=== PATIENT | female | born 1935 | race Caucasian/White ===

== ENCOUNTER 2016-10-16 18:04 | Observation (INO) | payer MEDICARE, BC ==
[~2016-10-16] VITALS: Ht 165.1 cm; Wt 65.0 kg
[~2016-10-16 18:04] MED LIST: AMLO5TAB22 PO; APIX5 PO; ASPI81TA82 PO; BENA10 PO; COQ1200C3 PO; DIAZ5TAB PO; DIGO0.123 PO; DOCU1CAP39 PO; HYDR-3580 PO; JANU100T PO; MACR100C PO; MAGN400 PO; METF-324 PO; METO25 PO; NITR.2T TD; NITR.4 SL; NITR0.4S SL; PLAV75TA PO; POLY119S PO; PROT40TA PO; ROSU40 PO; TRIM100T8 PO; ZOFR8TAB PO; ZOLP10TA3 PO
[2016-10-16 18:06] VITALS: BP 199/85; PULSE 88; RESP 18; TEMP 99.4; O2SAT 97
--- NOTE | 2016-10-16 19:37 | PD ---
Physical Exam Time Seen by Provider: 19:35 Narrative 81 y/o female here for evaluation of dizziness, intermittent htn for one week. Room spinning sensation, worse with movement. +Nausea. Vital signs reviewed. Seen at triage desk. Awaiting bed placement. Data Data Last Documented VS Vital Signs Date Time Temp Pulse Resp B/P Pulse Ox O2 Delivery O2 Flow Rate FiO2 10/16/16 18:06 99.4 88 18 199/85 97 Room Air [facility] Medical Record Reviewed: Yes Supervised Visit with FAM: No Familia Quiles Oct 16, 2016 19:37
[2016-10-16 21:08] LABS: AUTOMATED NEUTROPHIL # 7.7 TH/MM3 (1.8-7.7); BASOPHIL # 0.1 TH/MM3 (0-0.2); BASOPHIL % 0.4 % (0.0-2.0); EOSINOPHIL # 0.2 TH/MM3 (0-0.4); HEMATOCRIT 40.9 % (35.0-46.0); HEMO FLAGS DIFF FINAL; LYMPH % 26.9 % (9.0-44.0); LYMPHOCYTE # 3.2 TH/MM3 (1.0-4.8); MEAN CELL VOLUME 84.5 FL (80.0-100.0); MEAN CORPUSCULAR HEMOGLOBIN 27.9 PG (27.0-34.0); MONO % 6.9 % (0.0-8.0); NEUT % 63.8 % (16.0-70.0); PLATELET COUNT 323 TH/MM3 (150-450); RED BLOOD COUNT 4.84 MIL/MM3 (4.00-5.30); RED CELL DISTRIBUTION WIDTH 16.1 % (11.6-17.2)
[2016-10-16 21:09] LABS: BACTERIA, URINE MANY /hpf; BLOOD, URINE NEG (NEG); COMMENT (UR) CULTURE INDICATED; CULTURE IF INDICATED CULTURE INDICATED; GLUCOSE,URINE NEG (NEG); KETONE, URINE NEG (NEG); NITRITE,URINE NEG (NEG); URINE COLOR LIGHT-YELLOW (YELLW/STRAW)
[2016-10-16 21:31] LABS: ANION GAP 8 MEQ/L (5-15); AST (GOT) 16 U/L (15-37); BICARBONATE 24.7 MEQ/L (21.0-32.0); BLOOD UREA NITROGEN 23 MG/DL (7-18); CHLORIDE 102 MEQ/L (98-107); GLOMERULAR FILTRATION RATE 58 ML/MIN (>89); MAGNESIUM 1.7 MG/DL (1.5-2.5); POTASSIUM 4.3 MEQ/L (3.5-5.1); SODIUM (NA) 135 MEQ/L (136-145)
[2016-10-16 21:32] LABS: ALT (GPT) 23 U/L (10-53)
[2016-10-16 21:36] LABS: ALKALINE PHOSPHATASE 75 U/L (45-117); TOTAL BILIRUBIN ADULT 0.4 MG/DL (0.2-1.0)
[2016-10-16 21:44] LABS: CREATINE KINASE 56 U/L (26-192)
[2016-10-16] MEDS ORDERED: SITA1TAB2 PO (21:53)
[2016-10-16] MEDS ORDERED: HYDR-3516 PO (21:53)
[2016-10-16] MEDS ORDERED: DIGO1TAB61 PO (21:53)
[2016-10-16] MEDS ORDERED: APIX5TAB PO (21:53)
[2016-10-16] MEDS ORDERED: DIAZ5TAB PO (21:53)
[2016-10-16] MEDS ORDERED: METO-488 PO (21:53)
[2016-10-16 22:03] VITALS: BP_SYST 150; BP_SYST 161; BP_SYST 185; BP_DIAS 91; BP_DIAS 95; RESP 18
--- NOTE | 2016-10-16 22:03 | PD ---
HPI Chief Complaint: Syncope/Near-Syncope Time Seen by Provider: 21:57 Travel History International Travel<30 days: No Contact w/Intl Traveler<30days: No Traveled to known affect area: No History of Present Illness HPI Patient is an 81-year-old female that presents to the emergency department evaluation after a syncopal episode earlier this afternoon. 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 Patient states that she has felt weak since then, she had mild shortness of breath which she attributes to pain that she has in her right shoulder, she does report a mild left chest pain. She reports feeling nauseated and having elevated blood pressure readings today. She denies any abdominal pain, dysuria, chest pain prior to her episode. She was seen by her primary care provider for routine checkup this morning. She was then advised this afternoon to come to the emergency department if she did not feel any better after one hour. Patient reports a past medical history significant for hypertension, atrial fibrillation, she is currently on Eliquis. [facility] Past Medical History Hx Anticoagulant Therapy: Yes (eliquis) Arthritis: Yes Asthma: No Atrial Fibrillation: Yes Cancer: No Cardiac Catheterization: Yes (3 stents (last 03/20/15)) Cardiovascular Problems: Yes (CATH ON 03/23-BY BYPASS 2014-STENT) High Cholesterol: Yes Chemotherapy: No Chest Pain: Yes Congestive Heart Failure: No COPD: No Cerebrovascular Accident: No Diabetes: Yes Patient Takes Glucophage: No (JANUVIA 100MG PO DAILY ) Diminished Hearing: No GERD: Yes Genitourinary: Yes Headaches: No Hiatal Hernia: No Hypertension: Yes Immune Disorder: No Implanted Vascular Access Dvce: Yes Insomnia: Yes Kidney Stones: No Neurologic: Yes Reproductive: No Respiratory: No Immunizations Current: Yes Migraines: No Myocardial Infarction: Yes (2003) Radiation Therapy: No Renal Failure: No Seizures: No Sleep Apnea: No Thyroid Disease: No Ulcer: No Menopausal: Yes : 2 Para: 2 Miscarriage: 0 : 0 Past Surgical History AICD: No Appendectomy: Yes Arteriovenous Shunt: No Cholecystectomy: Yes Coronary Artery Bypass Graft: Yes (2014) Coronary Stent: Yes Ear Surgery: No Endocrine Surgery: No Eye Surgery: Yes (cataract surgery 2013) Genitourinary Surgery: No Hysterectomy: Yes Insulin Pump: No Joint Replacement: Yes (bilat knees) Neurologic Surgery: No Oral Surgery: No Pacemaker: No Thoracic Surgery: No Tonsillectomy: Yes Other Surgery: Yes Family History Family Myocardial Infarction: Yes Social History Alcohol Use: No Tobacco Use: No Substance Use: No Allergies-Medications (Allergen,Severity, Reaction): Coded Allergies: Macrobid (Verified Allergy, Severe, 03/28/15) Sulfa (Verified Allergy, Severe, 03/28/15) Penicillin (Verified Allergy, Unknown, 03/28/15) Reported Meds & Prescriptions Reported Meds & Active Scripts Active Reported Metoprolol Succinate/HCTZ 50-12.5 ER 1 Tab Tab 1 Tab PO DAILY Eliquis (Apixaban) 5 Mg Tab 5 Mg PO BID Diazepam 5 Mg Tab 5 Mg PO TID PRN Hydrocodone-Acetaminophen 5-325 mg Tab 1 Tab PO BID PRN Januvia (Sitagliptin Phosphate) 100 Mg Tab 100 Mg PO DAILY Digitek (Digoxin) 0.25 Mg Tab 0.25 Mg PO DAILY Review of Systems Except as stated in HPI: all other systems reviewed are Neg General / Constitutional: No: Fever, Chills Eyes: No: Visual changes HENT: No: Headaches, Lightheadedness Cardiovascular: Positive: Chest Pain or Discomfort Respiratory: Positive: Shortness of Breath Gastrointestinal: Positive: Nausea Neurologic: Positive: Dizziness, Syncope, No: Weakness, Focal Abnormalities Physical Exam Narrative GENERAL: Well-developed, well-nourished, alert elderly female. Resting comfortably in no acute distress. SKIN: Warm and dry. HEAD: Atraumatic. Normocephalic. EYES: Pupils equal and round. No scleral icterus. No injection or drainage. ENT: No nasal bleeding or discharge. Mucous membranes pink and moist. NECK: Trachea midline. No JVD. CARDIOVASCULAR: Tachycardic, irregularly regular. RESPIRATORY: No accessory muscle use. Clear to auscultation. Breath sounds equal bilaterally. GASTROINTESTINAL: Abdomen soft, non-tender, nondistended. Hepatic and splenic margins not palpable. MUSCULOSKELETAL: Extremities without clubbing, cyanosis, or edema. No obvious deformities. NEUROLOGICAL: Awake and alert. No obvious cranial nerve deficits. Motor grossly within normal limits. Five out of 5 muscle strength in the arms and legs. Normal speech. PSYCHIATRIC: Appropriate mood and affect; insight and judgment normal. Data Data Last Documented VS Vital Signs Date Time Temp Pulse Resp B/P Pulse Ox O2 Delivery O2 Flow Rate FiO2 10/16/16 22:03 104 18 150/95 101 18 185/91 99 18 161/95 10/16/16 18:06 99.4 97 Room Air Orders Electrocardiogram (10/16/16 19:38) Complete Blood Count With Diff (10/16/16 19:38) Comprehensive Metabolic Panel (10/16/16 19:38) Magnesium (Mg) (10/16/16 19:38) Ckmb (Isoenzyme) Profile (10/16/16 19:38) Troponin I (10/16/16 19:38) Urinalysis - C+S If Indicated (10/16/16 20:17) Urine Culture (10/16/16 20:10) Chest, Single Ap (10/16/16 ) Ct Brain W/O Iv Contrast(Rout) (10/16/16 ) Admit Order (Ed Use Only) (10/16/16 23:51) Labs Laboratory Tests Test 10/16/16 20:10 White Blood Count 12.0 TH/MM3 Red Blood Count 4.84 MIL/MM3 Hemoglobin 13.5 GM/DL Hematocrit 40.9 % Mean Corpuscular Volume 84.5 FL Mean Corpuscular Hemoglobin 27.9 PG Mean Corpuscular Hemoglobin 33.0 % Concent Red Cell Distribution Width 16.1 % Platelet Count 323 TH/MM3 Mean Platelet Volume 7.7 FL Neutrophils (%) (Auto) 63.8 % Lymphocytes (%) (Auto) 26.9 % Monocytes (%) (Auto) 6.9 % Eosinophils (%) (Auto) 2.0 % Basophils (%) (Auto) 0.4 % Neutrophils # (Auto) 7.7 TH/MM3 Lymphocytes # (Auto) 3.2 TH/MM3 Monocytes # (Auto) 0.8 TH/MM3 Eosinophils # (Auto) 0.2 TH/MM3 Basophils # (Auto) 0.1 TH/MM3 CBC Comment DIFF FINAL Differential Comment Urine Color LIGHT-YELLOW Urine Turbidity CLEAR Urine pH 6.0 Urine Specific [place] 1.007 Urine Protein TRACE mg/dL Urine Glucose (UA) NEG mg/dL Urine Ketones NEG mg/dL Urine Occult Blood NEG Urine Nitrite NEG Urine Bilirubin NEG Urine Urobilinogen LESS THAN 2.0 MG/DL Urine Leukocyte Esterase NEG Urine RBC LESS THAN 1 /hpf Urine WBC 3 /hpf Urine Amorphous Sediment RARE Urine Bacteria MANY /hpf Microscopic Urinalysis Comment CULTURE INDICATED Sodium Level 135 MEQ/L Potassium Level 4.3 MEQ/L Chloride Level 102 MEQ/L Carbon Dioxide Level 24.7 MEQ/L Anion Gap 8 MEQ/L Blood Urea Nitrogen 23 MG/DL Creatinine 0.93 MG/DL Estimat Glomerular Filtration 58 ML/MIN Rate Random Glucose 158 MG/DL Calcium Level 10.0 MG/DL Magnesium Level 1.7 MG/DL Total Bilirubin 0.4 MG/DL Aspartate Amino Transf 16 U/L (AST/SGOT) Alanine Aminotransferase 23 U/L (ALT/SGPT) Alkaline Phosphatase 75 U/L Total Creatine Kinase 56 U/L Troponin I LESS THAN 0.02 NG/ML Total Protein 7.9 GM/DL Albumin 3.6 GM/DL MDM Medical Decision Making Medical Screen Exam Complete: Yes Emergency Medical Condition: Yes Interpretation(s) Last Impressions Chest X-Ray 10/16/16 0000 Signed Impressions: Service Date/Time: October 21:55 - CONCLUSION: No acute cardiopulmonary disease. Vivi Israel MD Laboratory Tests Test 10/16/16 20:10 White Blood Count 12.0 TH/MM3 Red Blood Count 4.84 MIL/MM3 Hemoglobin 13.5 GM/DL Hematocrit 40.9 % Mean Corpuscular Volume 84.5 FL Mean Corpuscular Hemoglobin 27.9 PG Mean Corpuscular Hemoglobin 33.0 % Concent Red Cell Distribution Width 16.1 % Platelet Count 323 TH/MM3 Mean Platelet Volume 7.7 FL Neutrophils (%) (Auto) 63.8 % Lymphocytes (%) (Auto) 26.9 % Monocytes (%) (Auto) 6.9 % Eosinophils (%) (Auto) 2.0 % Basophils (%) (Auto) 0.4 % Neutrophils # (Auto) 7.7 TH/MM3 Lymphocytes # (Auto) 3.2 TH/MM3 Monocytes # (Auto) 0.8 TH/MM3 Eosinophils # (Auto) 0.2 TH/MM3 Basophils # (Auto) 0.1 TH/MM3 CBC Comment DIFF FINAL Differential Comment Urine Color LIGHT-YELLOW Urine Turbidity CLEAR Urine pH 6.0 Urine Specific [place] 1.007 Urine Protein TRACE mg/dL Urine Glucose (UA) NEG mg/dL Urine Ketones NEG mg/dL Urine Occult Blood NEG Urine Nitrite NEG Urine Bilirubin NEG Urine Urobilinogen LESS THAN 2.0 MG/DL Urine Leukocyte Esterase NEG Urine RBC LESS THAN 1 /hpf Urine WBC 3 /hpf Urine Amorphous Sediment RARE Urine Bacteria MANY /hpf Microscopic Urinalysis Comment CULTURE INDICATED Sodium Level 135 MEQ/L Potassium Level 4.3 MEQ/L Chloride Level 102 MEQ/L Carbon Dioxide Level 24.7 MEQ/L Anion Gap 8 MEQ/L Blood Urea Nitrogen 23 MG/DL Creatinine 0.93 MG/DL Estimat Glomerular Filtration 58 ML/MIN Rate Random Glucose 158 MG/DL Calcium Level 10.0 MG/DL Magnesium Level 1.7 MG/DL Total Bilirubin 0.4 MG/DL Aspartate Amino Transf 16 U/L (AST/SGOT) Alanine Aminotransferase 23 U/L (ALT/SGPT) Alkaline Phosphatase 75 U/L Total Creatine Kinase 56 U/L Troponin I LESS THAN 0.02 NG/ML Total Protein 7.9 GM/DL Albumin 3.6 GM/DL Vital Signs Date Time Temp Pulse Resp B/P Pulse Ox O2 Delivery O2 Flow Rate FiO2 10/16/16 21:45 104 18 10/16/16 18:06 99.4 88 18 199/85 97 Room Air Differential Diagnosis Arrhythmia versus orthostatic hypotension versus vertigo versus other Narrative Course Patient 81-year-old female presented to the emergency for evaluation of a syncopal episode home this afternoon. Patient has mild chest pain, she is attributing that to her right shoulder injury however she feels nauseated and was short of breath. Additionally she felt weak after the episode occurred. She was advised by her primary to come to the emergency department. Labs and imaging ordered and pending. Initial EKG shows atrial flutter/tachycardia with a rate of 92. Chest x-ray shows no acute disease. UA with reflex culture pending, possible contaminant. Pt has no urinary symptoms. CBC with WBC 12, no left shift. CMP with no acute issues identified. Cardiac enzymes neg X 1 set. Ortho VS neg. Care of pt transferred to my attending at the end of my shift. She will determine pt's disposition. CT of the brain pending, pt to be admitted. Yessi Henson [facility] Oct 16, 2016 22:02
--- NOTE | 2016-10-16 22:13 | RADRPT ---
EXAM DATE/TIME: 10/16/2016 21:55 [facility] COMPARISON: CHEST SINGLE AP, March 14, 2015, 4:06. INDICATIONS : Syncope and dizziness tonight. MEDICAL HISTORY : Hypertension. Myocardial infarction. Diabetes mellitus type II. Afib. GERD. SURGICAL HISTORY : CABG. Cholecystectomy. Appendectomy. Cardiac cath. ENCOUNTER: Initial ACUITY: 1 day PAIN SCORE: 0/10 LOCATION: Bilateral chest FINDINGS: The lungs are clear without infiltrate, nodule, or mass. There is no appreciable pleural effusion fo r technique. Slight cardiomegaly has not changed.. There is evidence for prior median sternotomy. CONCLUSION: No acute cardiopulmonary disease. Vivi Israel MD on October 16, 2016 at 22:11 Board Certified Radiologist. This report was verified electronically.
--- NOTE | 2016-10-16 22:53 | RADRPT ---
EXAM DATE/TIME: 10/16/2016 22:36 [facility] COMPARISON: No previous studies available for comparison. INDICATIONS : Syncopal episode with dizziness. RADIATION DOSE: 56.77 CTDIvol (mGy) MEDICAL HISTORY : Hypertension. Diabetes mellitus type 2. SURGICAL HISTORY : None. ENCOUNTER: Initial ACUITY: 1 day PAIN SCALE: 0/10 LOCATION: cranial TECHNIQUE: Multiple contiguous axial images were obtained of the head. Using automated exposure control and adj ustment of the mA and/or kV according to patient size, radiation dose was kept as low as reasonably a chievable to obtain optimal diagnostic quality images. DICOM format image data is available electro nically for review and comparison. FINDINGS: There is no evidence for intracranial hemorrhage, mass effect, mass lesions, or edema. The visualize d bony structures appear intact. Slight degree of brain atrophy is seen. Slight periventricular whit e matter changes are seen nonspecific mostly consistent with chronic small vessel ischemic changes. There are no signs of acute infarction for technique. CONCLUSION: Slight atrophic and small vessel ischemic changes without any evidence for acute hemorrhage or mass effect. Vivi Israel MD on October 16, 2016 at 22:51 Board Certified Radiologist. This report was verified electronically.
[2016-10-17] VITALS (7 sets, daily range): BP systolic 115–168; BP diastolic 56–79; PULSE 76–95; RESP 16–18; TEMP 97.8–98.2; O2SAT 95–97
[2016-10-17] MEDS ORDERED: MAGNESIUM HYDROXIDE SUSP 30 ML CUP PO PRN
[2016-10-17] MEDS ORDERED: LACTULOSE SYRUP 20 GM/30 ML CUP PO PRN
[2016-10-17] MEDS ORDERED: HEPARIN SODIUM - SQ 10,000 UNITS/ML VIAL SQ SCH
[2016-10-17] MEDS ORDERED: BISACODYL 10 MG SUPP RECTAL PRN
[2016-10-17] MEDS ORDERED: SENNOSIDES 8.6 MG TAB PO PRN
[2016-10-17] MEDS ORDERED: ONDANSETRON HCL 4 MG/2 ML VIAL IVP PRN
[2016-10-17] MEDS ORDERED: SODIUM CHLORIDE 0.9% FLUSH 10 ML FLUSH IV FLUSH PRN
[2016-10-17] MEDS ORDERED: NALOXONE HCL 0.4 MG/ML AMP IV PRN
[2016-10-17] MEDS: SODIUM CHLOR 0.9% 1000 ML INJ 1,000 ML IV SCH ×2 (00:26→09:51)
--- NOTE | 2016-10-17 03:41 | PD ---
Data Data Last Documented VS Vital Signs Date Time Temp Pulse Resp B/P Pulse Ox O2 Delivery O2 Flow Rate FiO2 10/16/16 22:03 104 18 150/95 101 18 185/91 99 18 161/95 10/16/16 18:06 99.4 97 Room Air Orders Electrocardiogram (10/16/16 19:38) Complete Blood Count With Diff (10/16/16 19:38) Comprehensive Metabolic Panel (10/16/16 19:38) Magnesium (Mg) (10/16/16 19:38) Ckmb (Isoenzyme) Profile (10/16/16 19:38) Troponin I (10/16/16 19:38) Urinalysis - C+S If Indicated (10/16/16 20:17) Urine Culture (10/16/16 20:10) Chest, Single Ap (10/16/16 ) Ct Brain W/O Iv Contrast(Rout) (10/16/16 ) Admit Order (Ed Use Only) (10/16/16 23:51) Labs Laboratory Tests Test 10/16/16 20:10 White Blood Count 12.0 TH/MM3 Red Blood Count 4.84 MIL/MM3 Hemoglobin 13.5 GM/DL Hematocrit 40.9 % Mean Corpuscular Volume 84.5 FL Mean Corpuscular Hemoglobin 27.9 PG Mean Corpuscular Hemoglobin 33.0 % Concent Red Cell Distribution Width 16.1 % Platelet Count 323 TH/MM3 Mean Platelet Volume 7.7 FL Neutrophils (%) (Auto) 63.8 % Lymphocytes (%) (Auto) 26.9 % Monocytes (%) (Auto) 6.9 % Eosinophils (%) (Auto) 2.0 % Basophils (%) (Auto) 0.4 % Neutrophils # (Auto) 7.7 TH/MM3 Lymphocytes # (Auto) 3.2 TH/MM3 Monocytes # (Auto) 0.8 TH/MM3 Eosinophils # (Auto) 0.2 TH/MM3 Basophils # (Auto) 0.1 TH/MM3 CBC Comment DIFF FINAL Differential Comment Urine Color LIGHT-YELLOW Urine Turbidity CLEAR Urine pH 6.0 Urine Specific [place] 1.007 Urine Protein TRACE mg/dL Urine Glucose (UA) NEG mg/dL Urine Ketones NEG mg/dL Urine Occult Blood NEG Urine Nitrite NEG Urine Bilirubin NEG Urine Urobilinogen LESS THAN 2.0 MG/DL Urine Leukocyte Esterase NEG Urine RBC LESS THAN 1 /hpf Urine WBC 3 /hpf Urine Amorphous Sediment RARE Urine Bacteria MANY /hpf Microscopic Urinalysis Comment CULTURE INDICATED Sodium Level 135 MEQ/L Potassium Level 4.3 MEQ/L Chloride Level 102 MEQ/L Carbon Dioxide Level 24.7 MEQ/L Anion Gap 8 MEQ/L Blood Urea Nitrogen 23 MG/DL Creatinine 0.93 MG/DL Estimat Glomerular Filtration 58 ML/MIN Rate Random Glucose 158 MG/DL Calcium Level 10.0 MG/DL Magnesium Level 1.7 MG/DL Total Bilirubin 0.4 MG/DL Aspartate Amino Transf 16 U/L (AST/SGOT) Alanine Aminotransferase 23 U/L (ALT/SGPT) Alkaline Phosphatase 75 U/L Total Creatine Kinase 56 U/L Troponin I LESS THAN 0.02 NG/ML Total Protein 7.9 GM/DL Albumin 3.6 GM/DL MDM Supervised Visit with FAM: Yes Narrative Course The history, exam, and medical decision-making in the associated midlevel provider note were completed with my assistance. I reviewed and agree with the findings presented. I attest that I had a [id number] encounter with the patient on the same day, and personally performed and documented my assessment and findings in the medical record. *My assessment and Findings: This is an 81-year-old female with a history of coronary artery disease and atrial fibrillation who presents to the emergency department with syncope. Labs are obtained which are reassuring and CT imaging of the head was unremarkable. Patient continues to feel somewhat lightheaded and dizzy. I think it's reasonable to observe her given her comorbidities and her age. Marivel Middleton MD Oct 17, 2016 03:41
[2016-10-17] MEDS ORDERED: HCTZ PO SCH (09:00)
[2016-10-17] MEDS ORDERED: METOPROLOL SUCCINATE 50 MG EXTENDED RELEASE TAB PO SCH (09:00)
[2016-10-17] MEDS ORDERED: HYDROCHLOROTHIAZIDE 12.5 MG CAP PO SCH (09:00)
[2016-10-17] MEDS ORDERED: DOCUSATE SODIUM 50 MG/SENNA 8.6 MG TAB PO SCH (09:00)
[2016-10-17] MEDS ORDERED: SODIUM CHLORIDE 0.9% FLUSH 10 ML FLUSH IV FLUSH SCH (09:00)
[2016-10-17] MEDS ORDERED: APIXABAN 5 MG TABLET PO SCH (09:00)
[2016-10-17] MEDS ORDERED: METOPROLOL SUCCINATE PO SCH (09:00)
[2016-10-17] MEDS ORDERED: DIGOXIN 0.25 MG TAB PO SCH (09:00)
[2016-10-17 11:52] LABS: AUTOMATED NEUTROPHIL # 4.2 TH/MM3 (1.8-7.7); BASOPHIL % 0.2 % (0.0-2.0); EOSINOPHIL # 0.3 TH/MM3 (0-0.4); EOSINOPHIL % 3.7 % (0.0-4.0); HEMATOCRIT 37.9 % (35.0-46.0); HEMO FLAGS DIFF FINAL; LYMPH % 29.1 % (9.0-44.0); LYMPHOCYTE # 2.1 TH/MM3 (1.0-4.8); MEAN CELL VOLUME 85.4 FL (80.0-100.0); MEAN CORPUSCULAR HEMOGLOBIN 27.8 PG (27.0-34.0); MEAN CORPUSCULAR HGB CONC 32.5 % (32.0-36.0); MONO % 8.3 % (0.0-8.0); NEUT % 58.7 % (16.0-70.0); PLATELET COUNT 272 TH/MM3 (150-450); RED BLOOD COUNT 4.44 MIL/MM3 (4.00-5.30); RED CELL DISTRIBUTION WIDTH 16.1 % (11.6-17.2); WHITE BLOOD COUNT 7.2 TH/MM3 (4.0-11.0)
[2016-10-17 12:32] LABS: BICARBONATE 30.7 MEQ/L (21.0-32.0); POTASSIUM 3.9 MEQ/L (3.5-5.1)
--- NOTE | 2016-10-17 12:35 | HHI.HP ---
HPI Service [facility] Primary Care Physician Non-Staff Admission Diagnosis syncope Diagnoses: Travel History International Travel<30 Days: No Contact w/Intl Traveler <30 Da: No Traveled to Known Affected Are: No History of Present Illness This is a very pleasant 81-year-old female who came into the emergency department at [facility] arriving at 7:35 PM last night with dizziness that has been going on and off for a week. Yesterday she had a feeling of spinning of the room where she was. This occurred after she got up and was walking in her living room. She felt spinning and then she passed out for a few seconds, no injuries, no chest pain, no trouble breathing however she did have some headache, when she came to the emergency department her systolic blood pressure was over 200. She was seen by the undersigned this morning in room H 95 at the emergency department. She was seen in presence of her . She is alert and oriented and she denies complaints. She also go home. She declined a recommendation from the undersigned to have an MRI of the brain. Review of Systems Other Is detailed above. 10 systems reviewed and otherwise negative Past Family Social History Past Medical History Myocardial infarction Hyperlipidemia atrial fibrillation on anticoagulation with Eliquis reflux disease cholecystitis Appendicitis Urinary infections Arthritis Diabetes Panic attacks Hiatal hernia anxiety Past Surgical History CABG Cataract surgery Coronary stenting appendectomy cholecystectomy hysterectomy Bilateral knee replacements Reported Medications Reported Meds & Active Scripts Active Reported Metoprolol Succinate/HCTZ 50-12.5 ER 1 Tab Tab 1 Tab PO DAILY Eliquis (Apixaban) 5 Mg Tab 5 Mg PO BID Diazepam 5 Mg Tab 5 Mg PO TID PRN Hydrocodone-Acetaminophen 5-325 mg Tab 1 Tab PO BID PRN Januvia (Sitagliptin Phosphate) 100 Mg Tab 100 Mg PO DAILY Digitek (Digoxin) 0.25 Mg Tab 0.25 Mg PO DAILY Allergies: Coded Allergies: Macrobid (Verified Allergy, Severe, 03/28/15) Sulfa (Verified Allergy, Severe, 03/28/15) Penicillin (Verified Allergy, Unknown, 03/28/15) Family History Father at there is a 92 and had CABG twice Mother of heart disease sister in June of this year of metastatic cancer, primary unknown Social History No smoking, no excessive alcohol, no illicit drug use Physical Exam Vital Signs Vital Signs Date Time Temp Pulse Resp B/P Pulse Ox O2 Delivery O2 Flow Rate FiO2 7/14/17 12:07 97.9 16 136/60 97 151/77 168/79 10/17/16 08:44 97.8 81 16 120/56 97 10/17/16 05:14 98.1 90 18 115/62 95 10/17/16 02:03 92 10/17/16 02:01 98.2 95 18 116/66 96 10/17/16 00:27 82 18 143/72 96 10/16/16 22:03 104 18 150/95 101 18 185/91 99 18 161/95 10/16/16 21:45 104 18 10/16/16 18:06 99.4 88 18 199/85 97 Room Air Physical Exam GENERAL: This is a well-nourished, well-developed patient, in no apparent distress. SKIN: No rashes, ecchymoses or lesions. Cool and dry. HEAD: Atraumatic. Normocephalic. No temporal or scalp tenderness. EYES: Pupils equal round and reactive. Extraocular motions intact. No scleral icterus. No injection or drainage. ENT: Nose without bleeding, purulent drainage or septal hematoma. Throat without erythema, tonsillar hypertrophy or exudate. Uvula midline. Airway patent. NECK: Trachea midline. No JVD or lymphadenopathy. Supple, nontender, no meningeal signs. CARDIOVASCULAR: Regular rate and rhythm without murmurs, gallops, or rubs. RESPIRATORY: Clear to auscultation. Breath sounds equal bilaterally. No wheezes , rales, or rhonchi. GASTROINTESTINAL: Abdomen soft, non-tender, nondistended. No hepato-splenomegaly , or palpable masses. No guarding. MUSCULOSKELETAL: Extremities without clubbing, cyanosis, or edema. No joint tenderness, effusion, or edema noted. No calf tenderness. NEUROLOGICAL: Awake and alert. Cranial nerves II through XII intact. Motor and sensory grossly within normal limits. Normal speech. Laboratory Laboratory Tests Test 10/16/16 10/17/16 10/17/16 20:10 00:15 11:35 White Blood Count 12.0 7.2 Red Blood Count 4.84 4.44 Hemoglobin 13.5 12.3 Hematocrit 40.9 37.9 Mean Corpuscular Volume 84.5 85.4 Mean Corpuscular Hemoglobin 27.9 27.8 Mean Corpuscular Hemoglobin 33.0 32.5 Concent Red Cell Distribution Width 16.1 16.1 Platelet Count 323 272 Mean Platelet Volume 7.7 7.0 Neutrophils (%) (Auto) 63.8 58.7 Lymphocytes (%) (Auto) 26.9 29.1 Monocytes (%) (Auto) 6.9 8.3 Eosinophils (%) (Auto) 2.0 3.7 Basophils (%) (Auto) 0.4 0.2 Neutrophils # (Auto) 7.7 4.2 Lymphocytes # (Auto) 3.2 2.1 Monocytes # (Auto) 0.8 0.6 Eosinophils # (Auto) 0.2 0.3 Basophils # (Auto) 0.1 0.0 CBC Comment DIFF FINAL DIFF FINAL Differential Comment Urine Color LIGHT-YELLOW Urine Turbidity CLEAR Urine pH 6.0 Urine Specific [place] 1.007 Urine Protein TRACE Urine Glucose (UA) NEG Urine Ketones NEG Urine Occult Blood NEG Urine Nitrite NEG Urine Bilirubin NEG Urine Urobilinogen LESS THAN 2.0 Urine Leukocyte Esterase NEG Urine RBC LESS THAN 1 Urine WBC 3 Urine Amorphous Sediment RARE Urine Bacteria MANY Microscopic Urinalysis Comment CULTURE INDICATED Sodium Level 135 143 Potassium Level 4.3 3.9 Chloride Level 102 105 Carbon Dioxide Level 24.7 30.7 Anion Gap 8 7 Blood Urea Nitrogen 23 25 Creatinine 0.93 1.04 Estimat Glomerular Filtration 58 51 Rate Random Glucose 158 190 Calcium Level 10.0 9.0 Magnesium Level 1.7 Total Bilirubin 0.4 Aspartate Amino Transf 16 (AST/SGOT) Alanine Aminotransferase 23 (ALT/SGPT) Alkaline Phosphatase 75 Total Creatine Kinase 56 Troponin I LESS THAN 0.02 LESS THAN 0.02 Total Protein 7.9 Albumin 3.6 Date/Time Procedure Status Source Growth 10/16/16 20:10 Urine Culture Received Urine Random Urine Pending Result Diagram: 10/17/16 1135 10/17/16 1135 Imaging Echocardiogram shows V4 and V5 [address] depression, unclear if this is new or old Last Impressions Head CT 10/16/16 0000 Signed Impressions: Service Date/Time: October 22:36 - CONCLUSION: Slight atrophic and small vessel ischemic changes without any evidence for acute hemorrhage or mass effect. Vivi Israel MD Chest X-Ray 10/16/16 0000 Signed Impressions: Service Date/Time: October 21:55 - CONCLUSION: No acute cardiopulmonary disease. Vivi Israel MD Assessment and Plan Assessment and Plan Assessment Episodes of syncope at home while standing up Poorly controlled hypertension Atrial fibrillation Chronic kidney disease Management The patient was kept on observation on telemetry No evidence of myocardial infarction on serial enzymes She was seen by her retail support manager Dr. METCALF, the case was discussed with him The case was discussed with the cardiology team. She is being discharged home Cardizem 120 mg daily is ordered She is recommended to take her blood pressure remained home twice and keep a log She is to see Dr. Metcalf in the office on the already scheduled visit for November 06 of this year Case discussed at length with the patient Discussed with nurse 45 minutes Lisa Fuentes MD Oct 17, 2016 12:35
[2016-10-17 13:19] LABS: DIGOXIN 1.4 NG/ML (0.8-2.0)
[2016-10-17 13:26] LABS: CREATINE KINASE 53 U/L (26-192)
--- NOTE | 2016-10-17 14:08 | RADRPT ---
EXAM DATE/TIME: 10/17/2016 11:08 [facility] COMPARISON: No previous studies available for comparison. INDICATIONS : Syncope. MEDICAL HISTORY : Myocardial infarction. Afib. Hypertension. Hypercholesterol. Diabetic. SURGICAL HISTORY : Hysterectomy. Cholecystectomy. Cardiac catheterization with stents. ENCOUNTER: Initial ACUITY: 1 day PAIN SCORE: 0/10 LOCATION: Bilateral neck PEAK SYSTOLIC VELOCITIES (cm/sec): ICA/CCA RATIO: Right: 0.9 Left: 1.0 ICA: Right: 66.6 Left: 67.7 CCA: Right: 72.3 Left: 70.8 ECA: Right: 96.8 Left: 106.2 VERTEBRAL: Right: 55.4 antegrade Left: 54.8 antegrade Elevated flow velocities and ICA/CCA ratios have been found to correlate with increased degrees of vessel stenosis, calculated as percentage of diameter relative to a normal segment of distal ICA/CCA FINDINGS: Antegrade flow is seen in both vertebral arteries. There is mild atherosclerotic plaquing at the orig in of both ICAs without any significant stenosis. CONCLUSION: No evidence for hemodynamically significant stenosis. Vivi Israel MD on October 17, 2016 at 14:06 Board Certified Radiologist. This report was verified electronically.
[2016-10-17] MEDS ORDERED: DILTIAZEM-CD 120 MG CAP ER PO SCH ×2 (14:15→14:30)
--- NOTE | 2016-10-17 14:29 | PD.CONS ---
HPI Service Cardiology physicians Consult Requested By Dr. Sharma Reason for Consult Syncope Primary Care Physician Non-Staff History of Present Illness The patient is an 81 year old female known to our practice with a cardiac history of paroxysmal atrial fibrillation on Eliquis, ASHD, diabetes, hyperlipidemia and stable, inoperable aortic dissection and history of PE and factor 5 leiden mutation. The patient presented after an episode of severe dizziness like "the room was going around like crazy" followed by a brief episode of "blacking out" associated with pain that radiated up the right side of her neck and up to the top of her head and nausea. She has chronic right shoulder pain due to a shoulder fracture. The pain radiates anteriorly to her chest. The patient was noted to be in atrial flutter and blood pressure was very elevated on admission. She states that recently she has been getting SBP blood pressures greater than 200 mmhg at home. Per the patient, her PCP has decreased her antihypertensive therapy recently. (Mara Parnell) Review of Systems Consitutional: COMPLAINS OF: Fatigue, DENIES: Fever, Chills, Weight gain, Weight loss Eyes: DENIES: Amaurosis Fugax, Change in vision HEENT: COMPLAINS OF: Lightheadedness, DENIES: Change in hearing Respiratory: DENIES: See HPI, Cough, Snoring, Shortness of breath, Wheezing, Sputum production Cardiovascular: COMPLAINS OF: Chest pain, Palpitations, DENIES: See HPI, Syncope, Tachycardia Gastrointestinal: COMPLAINS OF: Nausea, DENIES: Vomiting, Change in bowel habits, Reflux, Bloody stools, Melena Genitourinary: DENIES: Urinary incontinence, Difficulty voiding Integumentary: DENIES: Rash Neurologic: COMPLAINS OF: Tingling or numbness, DENIES: Memory problems, Poor Balance, Stroke symptoms Musculoskeletal: COMPLAINS OF: Joint pain, Limited range of motion, DENIES: Muscle pain, Back pain Psychiatric: DENIES: Anxiety, Depression, Sleep disturbances Hematologic: DENIES: Bruising tendencies, Bleeding tendencies Endocrine: DENIES: Weight gain, Weight loss, Thyroid disease (Mara Parnell ) Past Family Social History Allergies: Coded Allergies: Macrobid (Verified Allergy, Severe, 03/28/15) Sulfa (Verified Allergy, Severe, 03/28/15) Penicillin (Verified Allergy, Unknown, 03/28/15) Past Medical History ASHD HTN PAF on Eliquis Stable, inoperable aortic dissection PE with history of factor V leiden mutation HLD Diabetes Gerd Fractured right shoulder Past Surgical History Multiple heart catheterizations bilateral knee replacements hysterectomy Reported Medications Reported Meds & Active Scripts Active Reported Metoprolol Succinate/HCTZ 50-12.5 ER 1 Tab Tab 1 Tab PO DAILY Eliquis (Apixaban) 5 Mg Tab 5 Mg PO BID Diazepam 5 Mg Tab 5 Mg PO TID PRN Hydrocodone-Acetaminophen 5-325 mg Tab 1 Tab PO BID PRN Januvia (Sitagliptin Phosphate) 100 Mg Tab 100 Mg PO DAILY Digitek (Digoxin) 0.25 Mg Tab 0.25 Mg PO DAILY Active Ordered Medications Current Medications Medications (Trade) Dose Ordered Sig/Ambika Route Start Time Stop Time Status Last Admin (NS 1000 ml Inj) 1,000 ml @ 100 mls/hr Q10H IV 10/16/16 23:51 10/17/16 00:26 (NS Flush) 2 ml UNSCH PRN IV FLUSH 10/17/16 00:00 (NS Flush) 2 ml BID IV FLUSH 10/17/16 09:00 10/17/16 10:56 (Zofran Inj) 4 mg Q6H PRN IVP 10/17/16 00:00 (Narcan Inj) 0.4 mg UNSCH PRN IV 10/17/16 00:00 (Audrey-Colace) 1 tab BID PO 10/17/16 09:00 10/17/16 10:56 (Milk Of Magnesia Liq) 30 ml Q12H PRN PO 10/17/16 00:00 (Senokot) 17.2 mg Q12H PRN PO 10/17/16 00:00 (Dulcolax Supp) 10 mg DAILY PRN RECTAL 10/17/16 00:00 (Lactulose Liq) 30 ml DAILY PRN PO 10/17/16 00:00 (Eliquis) 5 mg BID PO 10/17/16 09:00 10/17/16 10:55 (Lanoxin) 0.25 mg DAILY PO 10/17/16 09:00 10/17/16 10:56 (Toprol Xl) 50 mg DAILY PO 10/17/16 09:00 10/17/16 10:55 (Microzide) 12.5 mg DAILY PO 10/17/16 09:00 10/17/16 10:55 Family History non contributory Social History nonsmoker (Mara Parnell) Physical Exam Vital Signs Vital Signs Date Time Temp Pulse Resp B/P Pulse Ox O2 Delivery O2 Flow Rate FiO2 10/17/16 12:07 97.9 16 136/60 97 151/77 168/79 10/17/16 08:44 97.8 81 16 120/56 97 10/17/16 05:14 98.1 90 18 115/62 95 10/17/16 02:03 92 10/17/16 02:01 98.2 95 18 116/66 96 10/17/16 00:27 82 18 143/72 96 10/16/16 22:03 104 18 150/95 101 18 185/91 99 18 161/95 10/16/16 21:45 104 18 10/16/16 18:06 99.4 88 18 199/85 97 Room Air Physical Exam GENERAL: overweight, elderly female in ER SKIN: Warm and dry. HEAD: Atraumatic. Normocephalic. EYES: Pupils equal and round. No scleral icterus. No injection or drainage. ENT: No nasal bleeding or discharge. NECK: Trachea midline. No JVD. CARDIOVASCULAR: Regular rate and rhythm. RESPIRATORY: No accessory muscle use. Clear to auscultation. Breath sounds equal bilaterally. GASTROINTESTINAL: Abdomen soft, non-tender, nondistended. MUSCULOSKELETAL: Extremities without clubbing, cyanosis, or edema. LImited ROM right shoulder NEUROLOGICAL: Awake and alert. No obvious cranial nerve deficits. Motor grossly within normal limits. Five out of 5 muscle strength in the arms and legs. Normal speech. PSYCHIATRIC: Appropriate mood and affect; insight and judgment normal. Laboratory Laboratory Tests Test 10/16/16 10/17/16 10/17/16 20:10 00:15 11:35 White Blood Count 12.0 7.2 Red Blood Count 4.84 4.44 Hemoglobin 13.5 12.3 Hematocrit 40.9 37.9 Mean Corpuscular Volume 84.5 85.4 Mean Corpuscular Hemoglobin 27.9 27.8 Mean Corpuscular Hemoglobin 33.0 32.5 Concent Red Cell Distribution Width 16.1 16.1 Platelet Count 323 272 Mean Platelet Volume 7.7 7.0 Neutrophils (%) (Auto) 63.8 58.7 Lymphocytes (%) (Auto) 26.9 29.1 Monocytes (%) (Auto) 6.9 8.3 Eosinophils (%) (Auto) 2.0 3.7 Basophils (%) (Auto) 0.4 0.2 Neutrophils # (Auto) 7.7 4.2 Lymphocytes # (Auto) 3.2 2.1 Monocytes # (Auto) 0.8 0.6 Eosinophils # (Auto) 0.2 0.3 Basophils # (Auto) 0.1 0.0 CBC Comment DIFF FINAL DIFF FINAL Differential Comment Sodium Level 135 143 Potassium Level 4.3 3.9 Chloride Level 102 105 Carbon Dioxide Level 24.7 30.7 Anion Gap 8 7 Blood Urea Nitrogen 23 25 Creatinine 0.93 1.04 Estimat Glomerular Filtration 58 51 Rate Random Glucose 158 190 Calcium Level 10.0 9.0 Magnesium Level 1.7 Total Bilirubin 0.4 Aspartate Amino Transf 16 (AST/SGOT) Alanine Aminotransferase 23 (ALT/SGPT) Alkaline Phosphatase 75 Total Creatine Kinase 56 53 Troponin I LESS THAN 0.02 LESS THAN 0.02 LESS THAN 0.02 Total Protein 7.9 Albumin 3.6 Urine Color LIGHT-YELLOW Urine Turbidity CLEAR Urine pH 6.0 Urine Specific [place] 1.007 Urine Protein TRACE Urine Glucose (UA) NEG Urine Ketones NEG Urine Occult Blood NEG Urine Nitrite NEG Urine Bilirubin NEG Urine Urobilinogen LESS THAN 2.0 Urine Leukocyte Esterase NEG Urine RBC LESS THAN 1 Urine WBC 3 Urine Amorphous Sediment RARE Urine Bacteria MANY Microscopic Urinalysis Comment CULTURE INDICATED Digoxin Level 1.4 Date/Time Procedure Status Source Growth 10/16/16 20:10 Urine Culture - Preliminary Resulted Urine Random Urine Gram Negative Babatunde (Mara Parnell) Result Diagram: 10/17/16 1135 10/17/16 1135 Imaging Last [address] 10/16/16 0000 Signed Impressions: Service Date/Time: October 22:36 - CONCLUSION: Slight atrophic and small vessel ischemic changes without any evidence for acute hemorrhage or mass effect. Vivi Israel MD Chest X-Ray 10/16/16 0000 Signed Impressions: Service Date/Time: October 21:55 - CONCLUSION: No acute cardiopulmonary disease. Vivi Israel MD (Mara Parnell) Assessment and Plan Assessment and Plan ASSESSMENT Hypertensive urgency Hx PAF, atrial flutter documented on admission. Patient remains on Eliquis ASHD s/p CABG 12/2014 and stents Small non-operative distal descending aortic dissection Hypertension PLAN Will add cardizem LA 120 mg daily Pending carotid US report Will follow up the patient in the office Nov 06. Will consider MCOT. Instructed the patient to keep a BP log and call the office with any concerns prior to office visit. Patient seen and evaluated by Dr Metcalf. (Mara Parnell) Assessment and Plan The exam, history, and the medical decision-making described in the above note were completed with the assistance of the mid-level provider. I reviewed and agree with the findings presented. I attest that I had a [id number] encounter with the patient on the same day, and personally performed and documented my assessment and findings in the medical record.Will treat atrial rate medically and continue to monitor in office and see effects of cardizem ( Kain Metcalf MD) Mara Parnell Oct 17, 2016 14:29 Kain Metcalf MD Oct 17, 2016 15:05
[2016-10-17] MEDS ORDERED: CARD120C4 PO (14:40)
--- NOTE | 2016-10-18 12:44 | EKG ---
Date Performed: 10/16/2016 Time Performed: 21:37:39 PTAGE: 81 years EKG: Atrial Flutter/Tachycardia, rate of [address] Deviation and Moderate T-wave ab normality, consider lateral ischemia Abnormal EKG PREVIOUS TRACING : 03/14/2015 02.50 DOCTOR: Lan Carrera Interpretating Date/Time 10/18/2016 12:41:40
== END 2016-10-17 16:12 | disposition home or self-care (01) ==
LOC: NEPC 18:04 → NEDA 23:52 → NEPHCDU 10-17 01:02
PROVIDERS: ADMIT Specialist; ATTEND Specialist
DX: R55 Syncope and collapse (principal); R42 Dizziness and giddiness; I48.0 Paroxysmal atrial fibrillation; D68.51 Activated protein C resistance; M54.2 Cervicalgia; R51 Headache; R11.0 Nausea; R07.9 Chest pain, unspecified; R06.02 Shortness of breath; R53.1 Weakness; R94.31 Abnormal electrocardiogram [ECG] [EKG]; R00.0 Tachycardia, unspecified; R53.83 Other fatigue; I25.10 Atherosclerotic heart disease of native coronary artery without angina pectoris; I12.9 Hypertensive chronic kidney disease with stage 1 through stage 4 chronic kidney disease, or unspecified chronic kidney disease; N18.9 Chronic kidney disease, unspecified; E78.5 Hyperlipidemia, unspecified; I25.2 Old myocardial infarction; E78.00 Pure hypercholesterolemia, unspecified; I48.92 Unspecified atrial flutter; I70.0 Atherosclerosis of aorta; I48.91 Unspecified atrial fibrillation; E11.22 Type 2 diabetes mellitus with diabetic chronic kidney disease; K21.9 Gastro-esophageal reflux disease without esophagitis; F41.0 Panic disorder [episodic paroxysmal anxiety]; M25.511 Pain in right shoulder; G89.29 Other chronic pain; M19.90 Unspecified osteoarthritis, unspecified site; Z79.899 Other long term (current) drug therapy; Z95.1 Presence of aortocoronary bypass graft; Z95.5 Presence of coronary angioplasty implant and graft; Z79.01 Long term (current) use of anticoagulants; Z96.653 Presence of artificial knee joint, bilateral
CPT/HCPCS: 70450; 71010; 80048; 80053; 80162; 81001; 82533; 82550; 83735; 84484; 85025; 87077; 87086; 87186; 93005; 93880; 99285; G0378; J7030

== ENCOUNTER 2016-10-25 16:40 | Observation (INO) | payer MEDICARE, BC ==
[~2016-10-25] VITALS: Ht 157.5 cm; Wt 76.0 kg
[~2016-10-25 16:40] MED LIST changes: -AMLO5TAB22 PO; -APIX5 PO; +APIX5TAB PO; -ASPI81TA82 PO; -BENA10 PO; +CARD120C4 PO; -COQ1200C3 PO; -DIAZ5TAB PO; -DIGO0.123 PO; +DIGO1TAB61 PO; -DOCU1CAP39 PO; +HYDR-3516 PO; -HYDR-3580 PO; -JANU100T PO; -MACR100C PO; -MAGN400 PO; -METF-324 PO; +METO-488 PO; -METO25 PO; -NITR.2T TD; -NITR.4 SL; -NITR0.4S SL; -PLAV75TA PO; -POLY119S PO; -PROT40TA PO; -ROSU40 PO; +SITA1TAB2 PO; -TRIM100T8 PO; -ZOFR8TAB PO; -ZOLP10TA3 PO
[2016-10-25 16:42] VITALS: BP 203/101; PULSE 72; RESP 14; TEMP 97.6; O2SAT 97
[2016-10-25 17:44] VITALS: RESP 20; O2SAT 97
[2016-10-25 17:47] VITALS: BP 161/76; PULSE 70; RESP 20; O2SAT 97
--- NOTE | 2016-10-25 18:03 | RADRPT ---
EXAM DATE/TIME: 10/25/2016 17:36 [facility] COMPARISON: CHEST SINGLE AP, March 14, 2015, 4:06. INDICATIONS : Chest pain MEDICAL HISTORY : Cardiovascular disease. Diabetes mellitus type II. Hypertension. SURGICAL HISTORY : CABG. ENCOUNTER: Initial ACUITY: 1 day PAIN SCORE: 5/10 LOCATION: Bilateral chest FINDINGS: A single view of the chest demonstrates minimal density left lower lobe. Heart enlarged. Evidence of previous median sternotomy/CABG. Prominence of the pulmonary trunk. Osseous structures are intact. CONCLUSION: 1. Minimal density left lower lobe likely atelectasis. 2. Prominent pulmonary arteries likely pulmonary arterial hypertension. 3. Status post CABG. Scar Ambrosio MD on October 25, 2016 at 17:59 Board Certified Radiologist. This report was verified electronically.
[2016-10-25] MEDS ORDERED: METF500T4 PO (18:06)
[2016-10-25] MEDS ORDERED: DIGO1TAB61 PO (18:08)
--- NOTE | 2016-10-25 18:13 | PD ---
HPI Chief Complaint: Cardiac Complaint Time Seen by Provider: 17:04 Travel History International Travel<30 days: No Contact w/Intl Traveler<30days: No Traveled to known affect area: No History of Present Illness HPI 81-year-old female complains of headache and chest pain. Patient was admitted week ago for dizziness and headache. Patient has CT scan of the brain and was normal. Patient was discharged home. Patient states that she had worsening and persistent headache since then and along with chest pain. Patient states the pain is pressure pain substernally with radiation to left side the neck and left arm. Patient states that the headache has been intermittent. Patient states the chest pain has been intermittent also. Patient states the chest pain is not associated with exertion. Patient denies any nausea vomiting. Patient denies any visual change. Patient denies any neck pain. Patient denies any fever chills. Patient states that her blood pressure has been elevated. Patient has history hypertension. Patient's on metoprolol/HCTZ. Cardizem CD 120 mg daily was added to the regimen. Patient states that her blood pressure has been elevated despite taking Cardizem. Patient denies any focal weakness or numbness of extremity. Patient has history of CAD status post CABG and stent placement. Patient also has history of hypertension, diabetes, hyperlipidemia. Patient is a nonsmoker. Patient has family history heart disease. Patient on Eliquis. PFSH Past Medical History Hx Anticoagulant Therapy: Yes (eliquis) Arthritis: Yes Asthma: No Atrial Fibrillation: Yes Blood Disorders: No Anxiety: Yes (Panic attacts ) Depression: No Heart Rhythm Problems: Yes (A fib) Cancer: No Cardiac Catheterization: Yes (3 stents (last 03/20/15)) Cardiovascular Problems: Yes (AFIB, HTN, CABG) High Cholesterol: Yes Chemotherapy: No Chest Pain: Yes Congestive Heart Failure: No COPD: No Cerebrovascular Accident: Yes Diabetes: Yes (metformin) Patient Takes Glucophage: Yes Diminished Hearing: No Endocrine: No Gastrointestinal Disorders: Yes (reflux, hital hernia) GERD: Yes Genitourinary: No Headaches: No Hiatal Hernia: No Hypertension: Yes Immune Disorder: Yes (Chronic fatigue) Implanted Vascular Access Dvce: Yes Insomnia: Yes Kidney Stones: No Musculoskeletal: Yes (fibromyalgia) Neurologic: No Psychiatric: No Reproductive: No Respiratory: Yes Immunizations Current: Yes Migraines: No Myocardial Infarction: Yes (2003) Radiation Therapy: No Renal Failure: No Seizures: No Sleep Apnea: No Thyroid Disease: No Ulcer: No Tetanus Vaccination: > 5 Years Influenza Vaccination: No Menopausal: Yes : 2 Para: 2 Miscarriage: 0 : 0 Past Surgical History AICD: No Appendectomy: Yes Arteriovenous Shunt: No Body Medical Devices: Knee replacements Cholecystectomy: Yes Coronary Artery Bypass Graft: Yes (2014) Coronary Stent: Yes Ear Surgery: No Endocrine Surgery: No Eye Surgery: Yes (cataract surgery 2013) Genitourinary Surgery: No Hysterectomy: Yes Insulin Pump: No Joint Replacement: Yes (bilat knees) Neurologic Surgery: No Oral Surgery: No Pacemaker: No Thoracic Surgery: No Tonsillectomy: Yes Other Surgery: Yes Family History Family Myocardial Infarction: Yes Social History Alcohol Use: No Tobacco Use: No Substance Use: No Allergies-Medications (Allergen,Severity, Reaction): Coded Allergies: Macrobid (Verified Allergy, Severe, 10/25/16) Sulfa (Verified Allergy, Severe, 10/25/16) Penicillin (Verified Allergy, Unknown, 10/25/16) Reported Meds & Prescriptions Reported Meds & Active Scripts Active Cardizem CD 24 HR (Diltiazem CD 24 HR) 120 Mg Caper 120 Mg PO DAILY Refills per Dr. Metcalf Reported Digitek (Digoxin) 0.25 Mg Tab 0.125 Mg PO EVERY OTHER DAY Metformin ER (Metformin HCl) 500 Mg John 1,000 Mg PO BID With meals Metoprolol Succinate/HCTZ 50-12.5 ER 1 Tab Tab 1 Tab PO BID Eliquis (Apixaban) 5 Mg Tab 5 Mg PO BID Hydrocodone-Acetaminophen 5-325 mg Tab 1 Tab PO BID PRN Januvia (Sitagliptin Phosphate) 100 Mg Tab 100 Mg PO DAILY Digitek (Digoxin) 0.25 Mg Tab 0.25 Mg PO EVERY OTHER DAY Review of Systems General / Constitutional: No: Fever Eyes: No: Visual changes HENT: Positive: Headaches Cardiovascular: Positive: Chest Pain or Discomfort Respiratory: No: Shortness of Breath Gastrointestinal: No: Abdominal Pain Genitourinary: No: Dysuria Musculoskeletal: No: Pain Skin: No Rash Neurologic: No: Weakness Psychiatric: No: Depression Endocrine: No: Polydipsia Hematologic/Lymphatic: No: Easy Bruising Physical Exam Narrative GENERAL: Well-nourished, well-developed patient. SKIN: Focused skin assessment warm/dry. HEAD: Normocephalic. EYES: No scleral icterus. No injection or drainage. Pupils 3 mm equal reactive. NECK: Supple, trachea midline. No JVD or lymphadenopathy. CARDIOVASCULAR: Regular rate and rhythm without murmurs, gallops, or rubs. RESPIRATORY: Breath sounds equal bilaterally. No accessory muscle use. GASTROINTESTINAL: Abdomen soft, non-tender, nondistended. MUSCULOSKELETAL: No cyanosis, or edema. BACK: Nontender without obvious deformity. No CVA tenderness. Neurologic exam normal. Data Data Last Documented VS Vital Signs Date Time Temp Pulse Resp B/P Pulse Ox O2 Delivery O2 Flow Rate FiO2 10/25/16 17:47 70 20 161/76 97 Room Air 10/25/16 16:42 97.6 Orders Electrocardiogram (10/25/16 17:11) Complete Blood Count With Diff (10/25/16 17:11) Comprehensive Metabolic Panel (10/25/16 17:11) Creatine Kinase (Cpk) (10/25/16 17:11) Troponin I (10/25/16 17:11) B-Type Natriuretic Peptide (10/25/16 17:11) Prothrombin Time / Inr (Pt) (10/25/16 17:11) Act Partial Throm Time (Ptt) (10/25/16 17:11) Chest, Single Ap (10/25/16 17:11) Iv Access Insert/Monitor (10/25/16 17:11) Ecg Monitoring (10/25/16 17:11) Oximetry (10/25/16 17:11) Mri Brain W/O Contrast (10/25/16 17:11) MDM Medical Decision Making Medical Screen Exam Complete: Yes Emergency Medical Condition: Yes Interpretation(s) 1813 PM. EKG shows sinus rhythm nonspecific ST-T wave change. Unchanged from previous EKG. Differential Diagnosis Differential diagnosis including migraine headache, tension headache, cluster headache, hypertensive emergency, hypertensive crisis, angina, OK, PE, pneumothorax. Narrative Course 81-year-old female with headache and chest pain. History of CAD status post CABG and stent placement. Patient's on Eliquis. Hakeem Beyer MD Oct 25, 2016 18:13
[2016-10-25 18:18] LABS: AUTOMATED NEUTROPHIL # 5.9 TH/MM3 (1.8-7.7); BASOPHIL # 0.1 TH/MM3 (0-0.2); BASOPHIL % 0.7 % (0.0-2.0); EOSINOPHIL # 0.3 TH/MM3 (0-0.4); EOSINOPHIL % 3.1 % (0.0-4.0); HEMATOCRIT 37.8 % (35.0-46.0); HEMO FLAGS DIFF FINAL; LYMPH % 26.9 % (9.0-44.0); LYMPHOCYTE # 2.6 TH/MM3 (1.0-4.8); MEAN CELL VOLUME 84.8 FL (80.0-100.0); MEAN CORPUSCULAR HEMOGLOBIN 28.7 PG (27.0-34.0); MEAN CORPUSCULAR HGB CONC 33.8 % (32.0-36.0); MONO % 7.4 % (0.0-8.0); NEUT % 61.9 % (16.0-70.0); PLATELET COUNT 272 TH/MM3 (150-450); RED BLOOD COUNT 4.46 MIL/MM3 (4.00-5.30); RED CELL DISTRIBUTION WIDTH 15.9 % (11.6-17.2); WHITE BLOOD COUNT 9.5 TH/MM3 (4.0-11.0)
[2016-10-25 18:25] LABS: APTT (PATIENT) 22.8 SEC (24.3-30.1); INTERNATIONAL NORMALIZED RATIO 0.9 RATIO
[2016-10-25 18:51] LABS: ALKALINE PHOSPHATASE 71 U/L (45-117); ALT (GPT) 27 U/L (10-53); ANION GAP 10 MEQ/L (5-15); AST (GOT) 28 U/L (15-37); BICARBONATE 26.3 MEQ/L (21.0-32.0); BLOOD UREA NITROGEN 28 MG/DL (7-18); CHLORIDE 103 MEQ/L (98-107); GLOMERULAR FILTRATION RATE 50 ML/MIN (>89); SODIUM (NA) 139 MEQ/L (136-145); TOTAL BILIRUBIN ADULT 0.3 MG/DL (0.2-1.0)
[2016-10-25 18:52] LABS: CREATINE KINASE 48 U/L (26-192); POTASSIUM 4.5 MEQ/L (3.5-5.1)
--- NOTE | 2016-10-25 20:21 | RADRPT ---
EXAM DATE/TIME: 10/25/2016 19:48 [facility] COMPARISON: CT BRAIN W/O CONTRAST, October 16, 2016, 22:36. INDICATIONS : Cephalgia. Weakness. MEDICAL HISTORY : Diabetes mellitus type 2. Hypertension. SURGICAL HISTORY : CABG Total knee replacement, left. Total knee replacement, right. Heart stent. ENCOUNTER: Initial ACUITY: 1 day PAIN SCORE: 3/10 LOCATION: cranial TECHNIQUE: Multiplanar, multisequence MRI of the brain was performed without contrast. FINDINGS: CEREBRUM: The ventricles are normal for age. No evidence of midline shift, mass lesion, hemorrhage or acute in farction. No extraaxial fluid collections are seen. The pituitary gland and suprasellar cistern are normal in configuration. WHITE MATTER: No significant signal abnormalities are seen in the white matter. POSTERIOR FOSSA: The cerebellum and brainstem are intact. The 4th ventricle is midline. The cerebellopontine angle is unremarkable. The cerebellar tonsils are normal in position. DIFFUSION IMAGING: No focal areas of restricted diffusion are seen. No evidence of acute infarction. EXTRACRANIAL: The visualized portions of the orbits and paranasal sinuses are unremarkable. CONCLUSION: No acute intracranial abnormalities. No acute infarction.. Scar Ambrosio MD on October 25, 2016 at 20:17 Board Certified Radiologist. This report was verified electronically.
[2016-10-25 20:30] VITALS: BP 157/78; PULSE 66; RESP 22; O2SAT 96
[2016-10-25] MEDS ORDERED: SODIUM CHLORIDE 0.9% FLUSH 10 ML FLUSH IV FLUSH PRN (21:00)
--- NOTE | 2016-10-25 21:17 | PD ---
Physical Exam Narrative Received sign out from previous team to follow up on MRI brain and admit to chest pain center. 81yo F was just admitted for dizziness and headache last week. 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 Metcalf but states she didnt complain of chest pain. States she has been having intermittent pressure like chest pain associated with diaphoresis and worst with exertion. States she had chest pain yesterday and this afternoon. Currently denies any headache or chest pain. Labs reviewed , no leukocytosis. Troponin negative. BNP 64. CXR showed minimal density left lower lobe likely atelectasis. Status post CABG. MRI brain showed no acute intracranial abnormalities. No acute infarction. Will admit to chest pain center for serial EKG and cardiac enzyme and possible cardiac stress test. States she has not had a stress test for over 3 years. BP is 161/76. Pt states she took her eliquis 5mg this morning and is due for her evening dose now. Will give pt her evening dose. Data Data Last Documented VS Vital Signs Date Time Temp Pulse Resp B/P Pulse Ox O2 Delivery O2 Flow Rate FiO2 10/25/16 20:30 66 22 157/78 96 Room Air 10/25/16 16:42 97.6 Orders Electrocardiogram (10/25/16 17:11) Complete Blood Count With Diff (10/25/16 17:11) Comprehensive Metabolic Panel (10/25/16 17:11) Creatine Kinase (Cpk) (10/25/16 17:11) Troponin I (10/25/16 17:11) B-Type Natriuretic Peptide (10/25/16 17:11) Prothrombin Time / Inr (Pt) (10/25/16 17:11) Act Partial Throm Time (Ptt) (10/25/16 17:11) Chest, Single Ap (10/25/16 17:11) Iv Access Insert/Monitor (10/25/16 17:11) Ecg Monitoring (10/25/16 17:11) Oximetry (10/25/16 17:11) Mri Brain W/O Contrast (10/25/16 17:11) Activity Bed Rest With Brp (10/25/16 20:58) Vital Signs (Adult) Q4H (10/25/16 20:58) Cardiac Rhythm .As Directed (10/25/16 20:58) Notify Dr: Other .PRN (10/25/16 20:58) Notify Parameters (10/25/16 20:58) Resp Oxygen Nasal Cannula (10/25/16 ) Ckmb (Isoenzyme) Profile (10/25/16 20:58) Ckmb (Isoenzyme) Profile (10/25/16 23:58) Troponin I (10/25/16 20:58) Troponin I (10/25/16 23:58) Electrocardiogram (10/25/16 20:58) Electrocardiogram (10/25/16 23:58) ^ Obtain (10/25/16 20:58) Sodium Chloride 0.9% Flush (Ns Flush) (10/25/16 21:00) Sodium Chloride 0.9% Flush (Ns Flush) (10/25/16 21:00) Associate Art Director / Telemetry [email or web address] (10/25/16 20:58) Admit Order (Ed Use Only) (10/25/16 20:58) Labs Laboratory Tests Test 10/25/16 17:40 White Blood Count 9.5 TH/MM3 Red Blood Count 4.46 MIL/MM3 Hemoglobin 12.8 GM/DL Hematocrit 37.8 % Mean Corpuscular Volume 84.8 FL Mean Corpuscular Hemoglobin 28.7 PG Mean Corpuscular Hemoglobin 33.8 % Concent Red Cell Distribution Width 15.9 % Platelet Count 272 TH/MM3 Mean Platelet Volume 7.4 FL Neutrophils (%) (Auto) 61.9 % Lymphocytes (%) (Auto) 26.9 % Monocytes (%) (Auto) 7.4 % Eosinophils (%) (Auto) 3.1 % Basophils (%) (Auto) 0.7 % Neutrophils # (Auto) 5.9 TH/MM3 Lymphocytes # (Auto) 2.6 TH/MM3 Monocytes # (Auto) 0.7 TH/MM3 Eosinophils # (Auto) 0.3 TH/MM3 Basophils # (Auto) 0.1 TH/MM3 CBC Comment DIFF FINAL Differential Comment Prothrombin Time 10.0 SEC Prothromb Time International 0.9 RATIO Ratio Activated Partial 22.8 SEC Thromboplast Time Sodium Level 139 MEQ/L Potassium Level 4.5 MEQ/L Chloride Level 103 MEQ/L Carbon Dioxide Level 26.3 MEQ/L Anion Gap 10 MEQ/L Blood Urea Nitrogen 28 MG/DL Creatinine 1.06 MG/DL Estimat Glomerular Filtration 50 ML/MIN Rate Random Glucose 156 MG/DL Calcium Level 9.0 MG/DL Total Bilirubin 0.3 MG/DL Aspartate Amino Transf 28 U/L (AST/SGOT) Alanine Aminotransferase 27 U/L (ALT/SGPT) Alkaline Phosphatase 71 U/L Total Creatine Kinase 48 U/L Troponin I LESS THAN 0.02 NG/ML B-Type Natriuretic Peptide 64 PG/ML Total Protein 7.0 GM/DL Albumin 3.3 GM/DL MDM Supervised Visit with FAM: No Interpretation(s) EKG: NSR 70bpm. TWI I, aVL, V4-V6 unchanged from 10/16/16. TWI V2, V3. Diagnosis Primary Impression: Chest pain Qualified Code: R07.9 - Chest pain, unspecified type Admitting Information Admitting Physician Requests: Jadyn Tolliver DO Oct 25, 2016 21:17
[2016-10-25 21:23] VITALS: O2SAT 96
[2016-10-25] MEDS ORDERED: APIXABAN 5 MG TABLET PO ONE (21:30)
[2016-10-25 22:00] VITALS: BP 146/72; PULSE 80; RESP 21; O2SAT 98
[2016-10-25 22:38] LABS: CREATINE KINASE 33 U/L (26-192)
[2016-10-26] VITALS (11 sets, daily range): BP systolic 144–173; BP diastolic 65–79; PULSE 59–78; RESP 16–20; TEMP 97.6–97.9; O2SAT 96–97
[2016-10-26 01:53] LABS: CREATINE KINASE 37 U/L (26-192)
[2016-10-26] MEDS: SODIUM CHLORIDE 0.9% FLUSH 10 ML FLUSH IV FLUSH SCH ×2 (04:13→09:54)
[2016-10-26] MEDS ORDERED: GLUCAGON 1 MG/ML VIAL IM/SQ PRN (09:30)
[2016-10-26] MEDS ORDERED: DEXTROSE 50% IN WATER 50 ML VIAL(D50) IV PRN (09:30)
[2016-10-26] MEDS ORDERED: METO25TA3 PO (09:37)
[2016-10-26] MEDS ORDERED: ACETAMINOPHEN/HYDROcodone 325 MG/5 MG TAB PO PRN (09:45)
[2016-10-26] MEDS ORDERED: DILTIAZEM-CD 120 MG CAP ER PO SCH (09:45)
[2016-10-26] MEDS ORDERED: INSULIN ASPART SUPPLEMENTAL SCALE SQ SCH (11:00)
--- NOTE | 2016-10-26 11:21 | HHI.HP ---
HPI Primary Care Physician Non-Staff Chief Complaint Chest pain History of Present Illness This is a 81-year-old female with history of CAD with single-vessel bypass in 2015 and prior that having multiple stents with a complaint of chest discomfort. She was here about a week ago for similar issues. She states she' s not really feeling any better. She states that she's been having increased blood pressures with even very mild activity and feeling dizzy. She also is been diaphoretic. She has not passed out since her last hospitalization was felt close. She states that yesterday while at the grocery store she felt like she was about to pass out. She also had a tightness in the center of her chest and also in her back. Patient also believes she went back in atrial fibrillation. States she has paroxysmal atrial fibrillation. Her heart rate felt irregular but not rapid. She was short of breath with it and nauseous as well as being diaphoretic. It lasted about an hour. Patient has continue to follow Dr. Metcalf for years. Cannot recall recent stress testing. Review of Systems General: Patient denies fevers, chills recent, and recent travel HEENT: Patient denies headache, sore throat, difficulty swallowing. Cardiovascular: Has the chest discomfort as mentioned above. She believes she went back in atrial fibrillation briefly during this episode. States it felt irregular but was not rapid. She felt like she was about the past however there was no syncope. She has had occasional diaphoresis. Respiratory: She has been short of breath. Denies inspirational chest discomfort. Denies coughing wheezing or hemoptysis. GI: She was nauseous. Patient denies vomiting, diarrhea, abdominal pain, bloody stools. Musculoskeletal: Patient denies joint pain or edema. Denies calf pain or edema. Neurovascular: Patient denies numbness, tingling, weakness in extremities. Denies headache. Endocrine: Denies polyuria and polydipsia. Hematologic: Denies easy bruising. Skin: Denies rash or itching. Past Family Social History Allergies: Coded Allergies: Macrobid (Verified Allergy, Severe, 10/25/16) Sulfa (Verified Allergy, Severe, 10/25/16) Penicillin (Verified Allergy, Unknown, 10/25/16) Past Medical History Coronary artery disease, factor V Leiden deficiency, PEs, paroxysmal atrial fibrillation, diabetes, GERD, anxiety, fibromyalgia, hypertension, and hyperlipidemia. Past Surgical History Multiple heart catheterization with stenting. Single-vessel bypass 2014. Appendectomy, knee replacements, cholecystectomy, cataracts, tonsillectomy, and hysterectomy. Reported Medications Reported Meds & Active Scripts Active Cardizem CD 24 HR (Diltiazem CD 24 HR) 120 Mg Caper 120 Mg PO DAILY Refills per Dr. Metcalf Reported Metoprolol Tartrate 25 Mg Tab 25 Mg PO BID Digitek (Digoxin) 0.25 Mg Tab 0.125 Mg PO EVERY OTHER DAY Metformin ER (Metformin HCl) 500 Mg John 1,000 Mg PO BID With meals Eliquis (Apixaban) 5 Mg Tab 5 Mg PO BID Hydrocodone-Acetaminophen 5-325 mg Tab 1 Tab PO BID PRN Januvia (Sitagliptin Phosphate) 100 Mg Tab 100 Mg PO DAILY Digitek (Digoxin) 0.25 Mg Tab 0.25 Mg PO EVERY OTHER DAY Active Ordered Medications Current Medications Medications (Trade) Dose Ordered Sig/Ambika Route Start Time Stop Time Status Last Admin (NS Flush) 2 ml UNSCH PRN IV FLUSH 10/25/16 21:00 (NS Flush) 2 ml BID IV FLUSH 10/25/16 21:00 10/26/16 09:54 (Eliquis) 5 mg BID PO 10/26/16 21:00 (Cardizem Cd) 120 mg DAILY PO 10/26/16 09:45 10/26/16 09:54 (Glucophage) 1,000 mg BID@09,18 PO 10/26/16 18:00 (D50w (Vial) Inj) 25 ml UNSCH PRN IV 10/26/16 09:30 (Glucagon Inj) 1 mg UNSCH PRN IM/SQ 10/26/16 09:30 (Nye 5-325 Mg) 0.5 tab Q4HR PRN PO 10/26/16 09:45 Family History There is family history of CAD. Social History Patient does not smoke. Physical Exam Vital Signs Vital Signs Date Time Temp Pulse Resp B/P Pulse Ox O2 Delivery O2 Flow Rate FiO2 10/26/16 08:03 69 10/26/16 07:47 69 10/26/16 07:30 97 21 10/26/16 07:05 97.7 72 20 144/68 97 10/26/16 04:26 67 18 166/79 96 10/26/16 03:35 62 10/26/16 01:57 68 10/26/16 00:18 97.9 72 18 173/74 97 10/25/16 22:00 80 21 146/72 98 Room Air 10/25/16 21:23 96 10/25/16 20:30 66 22 157/78 96 Room Air 10/25/16 17:47 70 20 161/76 97 Room Air 10/25/16 17:44 20 97 Room Air 10/25/16 16:42 97.6 72 14 203/101 97 Physical Exam GENERAL: This is a well-nourished, well-developed patient, in no apparent distress. Patient speaks in clear complete sentences. Patient is pleasant. HEENT: Head is atraumatic and normocephalic. Neck is supple without lymphadenopathy and trachea is midline. No JVD or carotid bruits. CARDIOVASCULAR: Grade 2 systolic murmur left sternal border. Regular rate and rhythm without gallops, or rubs. RESPIRATORY: Clear to auscultation. Breath sounds equal bilaterally. No wheezes , rales, or rhonchi. Chest wall is nontender. No use of accessory muscles. GASTROINTESTINAL: Abdomen is nontender, nondistended. Abdomen soft. No obvious pulsatile mass or bruit. No CVA tenderness. Strong femoral pulses bilaterally. Normal bowel sounds in all quadrants. MUSCULOSKELETAL: Patient is moving upper and lower extremities freely. No calf tenderness or edema, no Homans sign. Strong pulses in upper and lower extremities. NEUROLOGICAL: Patient is alert and oriented. Cranial nerves 2-12 are grossly intact. No focal deficits and speech is clear. SKIN: No rash and turgor is normal. Laboratory Laboratory Tests Test 10/25/16 10/25/16 10/26/16 17:40 21:45 01:05 White Blood Count 9.5 Red Blood Count 4.46 Hemoglobin 12.8 Hematocrit 37.8 Mean Corpuscular Volume 84.8 Mean Corpuscular Hemoglobin 28.7 Mean Corpuscular Hemoglobin 33.8 Concent Red Cell Distribution Width 15.9 Platelet Count 272 Mean Platelet Volume 7.4 Neutrophils (%) (Auto) 61.9 Lymphocytes (%) (Auto) 26.9 Monocytes (%) (Auto) 7.4 Eosinophils (%) (Auto) 3.1 Basophils (%) (Auto) 0.7 Neutrophils # (Auto) 5.9 Lymphocytes # (Auto) 2.6 Monocytes # (Auto) 0.7 Eosinophils # (Auto) 0.3 Basophils # (Auto) 0.1 CBC Comment DIFF FINAL Differential Comment Prothrombin Time 10.0 Prothromb Time International 0.9 Ratio Activated Partial 22.8 Thromboplast Time Sodium Level 139 Potassium Level 4.5 Chloride Level 103 Carbon Dioxide Level 26.3 Anion Gap 10 Blood Urea Nitrogen 28 Creatinine 1.06 Estimat Glomerular Filtration 50 Rate Random Glucose 156 Calcium Level 9.0 Total Bilirubin 0.3 Aspartate Amino Transf 28 (AST/SGOT) Alanine Aminotransferase 27 (ALT/SGPT) Alkaline Phosphatase 71 Total Creatine Kinase 48 33 37 Troponin I LESS THAN 0.02 LESS THAN 0.02 LESS THAN 0.02 B-Type Natriuretic Peptide 64 Total Protein 7.0 Albumin 3.3 Result Diagram: 10/25/16173910/25/161739 Imaging Last 48 hours Impressions Chest X-Ray 10/25/161710 Signed Impressions: Service Date/Time: Tuesday, October 25, 2016 17:36 - CONCLUSION: 1. Minimal density left lower lobe likely atelectasis. 2. Prominent pulmonary arteries likely pulmonary arterial hypertension. 3. Status post CABG. Scar Ambrosio MD Brain MRI 10/25/161710 Signed Impressions: Service Date/Time: Tuesday, October 25, 2016 19:48 - CONCLUSION: No acute intracranial abnormalities. No acute infarction.. Scar Ambrosio MD Course EKGs are sinus rhythm with nonspecific lateral ST changes. Assessment and Plan Assessment and Plan * Chest pain: Patient has had serial cardiac enzymes and EKGs for ruling out purposes. She will be seen by Dr. Ellsworth of cardiology in the chest pain center. Patient will undergo a Lexiscan be discharged home if stress test is nonischemic. She should follow-up with her back tender cylinder and her primary care physician. * CAD: We'll reassess with stress testing. * Diabetes: Patient will have sliding scale insulin coverage while in the chest pain center. Resume medication afterwards. Follow diabetic diet. * Hypertension: Continue current medication. * For lipidemia: Continue current medication. * Factor V Leiden deficiency: Continue medication. * GERD: Continue current medication. Patient is stable at this time. She is agreeable to this plan. Dejon Michel Oct 26, 2016 11:21
[2016-10-26] MEDS ORDERED: METOPROLOL TARTRATE 25 MG TAB PO SCH (11:30)
[2016-10-26] MEDS ORDERED: REGADENOSON INJ 0.4 MG/5 ML SYR ONE (11:56)
--- NOTE | 2016-10-26 13:54 | RADRPT ---
EXAM DATE/TIME: 10/26/2016 10:59 [facility] COMPARISON: CHEST SINGLE AP, October 25, 2016, 17:36. INDICATIONS : Substernal chest pain radiating to left arm and neck. Angina. Atrial fibrillation. DOSE: 27.2 mCi Tc99m Myoview at stress. 8.5 mCi Tc99m Myoview at rest. 0.4 mg Lexiscan STRESS SYMPTOMS: Dyspnea and headache. EJECTION FRACTION: 63% MEDICAL HISTORY : Gastroesophageal reflux disease. Diabetes mellitus type 2. Stroke. Coronary artery disease, myocardia l infarction and hypertension. SURGICAL HISTORY : Appendectomy. CABG Coronary artery stent. Tonsillectomy and bilateral knee replacements. ENCOUNTER: Initial ACUITY: 4 - 6 days PAIN SCALE: 7/10 LOCATION: Substernal chest TECHNIQUE: The patient underwent pharmacologic stress with infusion of prescribed dose. Continuous ECG tracing was monitored during stress. Gated SPECT imaging was performed after stress and conventional SPECT i maging was performed at rest. The examination was performed on a SPECT/CT scanner, both attenuation and non-corrected datasets were reviewed. FINDINGS: DISTRIBUTION: The maximum perfused segment at stress is in the anterior wall. PERFUSION STUDY: The pattern of perfusion at stress is within normal limits and there is some degree of breast attenua tion artifact overlapping the anterior wall towards the apex. GATED STUDY: There is intact wall motion and thickening without hypokinetic or dyskinetic segments. CONCLUSION: No partial ischemia. RISK CATEGORY: Low (<1% Annual Mortality Rate) Vivi Israel MD on October 26, 2016 at 13:51 Board Certified Radiologist. This report was verified electronically.
--- NOTE | 2016-10-26 14:53 | HHI.DCPOC ---
Discharge Care Plan Diagnosis: (1) Chest pain (2) Hypertension (3) Hyperlipemia (4) Diabetes mellitus (5) Hx of CABG (6) CAD (coronary artery disease) Goals to Promote Your Health * To prevent worsening of your condition and complications * To maintain your health at the optimal level Directions to Meet Your Goals Take your medications as prescribed Follow your dietary instruction Follow activity as directed Keep your appointments as scheduled Take your immunizations and boosters as scheduled If your symptoms worsen call your PCP, if no PCP go to Urgent Care Center or Emergency Room Smoking is Dangerous to Your Health. Avoid second hand smoke Call the 24-hour hour crisis hotline for domestic abuse at Dejon Michel Oct 26, 2016 14:53
--- NOTE | 2016-10-26 16:09 | TR ---
Date Performed: 10/26/2016 Time Performed: 12:00:16 DOCTOR: Som Ellsworth DRUG LIST: CLINICAL HISTORY: CHEST PAIN REASON FOR TEST: REASON FOR ENDING: OBSERVATION: CONCLUSION: Lexiscan stress test was performed under standard four minute protocol. Radionuclid e was injected one minute prior to ending the test. No electrocardiographic abormalities were present to suggest ischemia. Nuclear imaging and interpretation are pending. COMMENTS:
--- NOTE | 2016-10-26 16:17 | EKG ---
Date Performed: 10/26/2016 Time Performed: 01:07:16 PTAGE: 81 years EKG: Sinus rhythm ST DEVIATION AND MODERATE T-WAVE ABNORMALITY, CONSIDER ANTEROLATERAL ISCHEMIA ABNORMAL ECG PREVIOUS TRACING : 10/25/2016 21.57 Since previous tracing, no significant change noted DOCTOR: Som Ellsworth Interpretating Date/Time 10/26/2016 16:15:58
--- NOTE | 2016-10-26 16:19 | EKG ---
Date Performed: 10/25/2016 Time Performed: 21:57:35 PTAGE: 81 years EKG: Sinus rhythm ST DEVIATION AND MODERATE T-WAVE ABNORMALITY, CONSIDER ANTEROLATERAL ISCHEMIA ABNORMAL ECG PREVIOUS TRACING : 10/25/2016 17.53 Since previous tracing, no significant change noted DOCTOR: Som Ellsworth Interpretating Date/Time 10/26/2016 16:17:53
[2016-10-26] MEDS ORDERED: metFORMIN HCL 500 MG TAB PO SCH (18:00)
[2016-10-26] MEDS ORDERED: APIXABAN 5 MG TABLET PO SCH (21:00)
--- NOTE | 2016-10-27 10:26 | EKG ---
Date Performed: 10/25/2016 Time Performed: 17:53:34 PTAGE: 81 years EKG: Sinus rhythm ST DEVIATION AND MODERATE T-WAVE ABNORMALITY, CONSIDER ANTEROLATERAL ISCHEMIA Consider anteroseptal ischemia ABNORMAL ECG PREVIOUS TRACING : 10/16/2016 21.37 Compared to previous, patient is now in sinus rhythm. DOCTOR: Jose Davies Interpretating Date/Time 10/27/2016 10:26:32
== END 2016-10-26 16:56 | disposition home or self-care (01) ==
LOC: NEPE 16:40 → NEDA 21:02 → NEPGCP 23:31
DX: R07.89 Other chest pain (principal); R53.1 Weakness; R07.2 Precordial pain; M54.2 Cervicalgia; M79.602 Pain in left arm; R06.00 Dyspnea, unspecified; R51 Headache; R11.0 Nausea; M79.7 Fibromyalgia; R61 Generalized hyperhidrosis; R42 Dizziness and giddiness; I25.119 Atherosclerotic heart disease of native coronary artery with unspecified angina pectoris; I10 Essential (primary) hypertension; E78.5 Hyperlipidemia, unspecified; I48.0 Paroxysmal atrial fibrillation; I25.2 Old myocardial infarction; E11.9 Type 2 diabetes mellitus without complications; E78.00 Pure hypercholesterolemia, unspecified; D68.51 Activated protein C resistance; K21.9 Gastro-esophageal reflux disease without esophagitis; F41.9 Anxiety disorder, unspecified; M19.90 Unspecified osteoarthritis, unspecified site; Z95.5 Presence of coronary angioplasty implant and graft; Z95.1 Presence of aortocoronary bypass graft; Z79.899 Other long term (current) drug therapy; Z79.84 Long term (current) use of oral hypoglycemic drugs; Z79.01 Long term (current) use of anticoagulants; Z86.73 Personal history of transient ischemic attack (TIA), and cerebral infarction without residual deficits; Z96.653 Presence of artificial knee joint, bilateral
CPT/HCPCS: 70551; 71010; 78452; 80053; 82550; 82948; 83880; 84484; 85025; 85610; 85730; 93005; 93017; 99285; A9502; G0378; J2785; J1815

== ENCOUNTER 2016-11-13 17:53 | Inpatient (IN) | payer MEDICARE, BC ==
[~2016-11-13] VITALS: Ht 162.6 cm; Wt 79.5 kg
[~2016-11-13 17:53] MED LIST changes: +METF500T4 PO; -METO-488 PO; +METO25TA3 PO
[2016-11-13 17:55] VITALS: BP 184/78; PULSE 68; RESP 12; TEMP 98.1; O2SAT 96
[2016-11-13] MEDS ORDERED: ASPIRIN 81 MG CHEW TAB PO ONE (18:15)
[2016-11-13] MEDS ORDERED: SODIUM CHLORIDE 0.9% FLUSH 10 ML FLUSH IVF PRN (18:15)
--- NOTE | 2016-11-13 18:28 | PD ---
HPI Chief Complaint: Chest Pain Time Seen by Provider: 18:00 Travel History International Travel<30 days: No Contact w/Intl Traveler<30days: No History of Present Illness HPI Patient is an 81-year-old female with history of coronary disease, single vessel bypass in 2014, history of multiple cardiac stents, hypertension, hyperlipidemia, diabetes, presents to emergency room with complaints of chest pain. Patient reports that she has been having chest pain which is been ongoing for the past few weeks. She reports that the chest pain is located her left breast, reports that she feels a pressure sensation under her chest. Reports that chest pain is exacerbated with exertion. Reports that her chest pain is associated with sob. Patient did follow up with Dr. Metcalf yesterday and he was concerned and wanted her to have a cardiac cath tomorrow - reports that he scheduled the cardiac cath for thursday as she is on Eliquis as she has factor V leiden clotting disorder. Patient did call Dr. Metcalf today and was told to come to the ER for evaluation. PFSH Past Medical History Hx Anticoagulant Therapy: Yes (eliquis) Arthritis: Yes Asthma: No Atrial Fibrillation: Yes Blood Disorders: No Anxiety: Yes (Panic attacts ) Depression: No Heart Rhythm Problems: Yes (A-FIB) Cancer: No Cardiac Catheterization: Yes Cardiovascular Problems: Yes (STENTS, CABG, ) High Cholesterol: No Chemotherapy: No Chest Pain: Yes Congestive Heart Failure: No COPD: No Cerebrovascular Accident: Yes Diabetes: Yes Patient Takes Glucophage: Yes Diminished Hearing: No Endocrine: No Gastrointestinal Disorders: Yes (reflux, hital hernia) GERD: Yes Genitourinary: No Headaches: No Hiatal Hernia: No Hypertension: Yes Immune Disorder: Yes (Chronic fatigue) Implanted Vascular Access Dvce: Yes Insomnia: Yes Kidney Stones: No Musculoskeletal: Yes (fibromyalgia) Neurologic: No Psychiatric: No Reproductive: No Respiratory: Yes Immunizations Current: Yes Migraines: No Myocardial Infarction: Yes (2003) Radiation Therapy: No Renal Failure: No Seizures: No Sleep Apnea: No Thyroid Disease: No Ulcer: No Menopausal: Yes : 2 Para: 2 Miscarriage: 0 : 0 Past Surgical History AICD: No Appendectomy: Yes Arteriovenous Shunt: No Body Medical Devices: Knee replacements Cholecystectomy: Yes Coronary Artery Bypass Graft: Yes Coronary Stent: Yes Ear Surgery: No Endocrine Surgery: No Eye Surgery: Yes (cataract surgery 2013) Genitourinary Surgery: No Hysterectomy: Yes Insulin Pump: No Joint Replacement: Yes (bilat knees) Neurologic Surgery: No Oral Surgery: No Pacemaker: No Thoracic Surgery: No Tonsillectomy: Yes Other Surgery: Yes (MS, appendix, gallbladder, both Knees replaced) Family History Family Myocardial Infarction: Yes Social History Alcohol Use: No Tobacco Use: No Substance Use: No Allergies-Medications (Allergen,Severity, Reaction): Coded Allergies: Macrobid (Verified Allergy, Severe, 11/13/16) Sulfa (Verified Allergy, Severe, 11/13/16) Penicillin (Verified Allergy, Unknown, 11/13/16) Reported Meds & Prescriptions Reported Meds & Active Scripts Active Cardizem CD 24 HR (Diltiazem CD 24 HR) 120 Mg Caper 120 Mg PO DAILY Refills per Dr. Metcalf Reported Metoprolol Tartrate 25 Mg Tab 25 Mg PO BID Digitek (Digoxin) 0.25 Mg Tab 0.125 Mg PO EVERY OTHER DAY Metformin ER (Metformin HCl) 500 Mg John 1,000 Mg PO BID With meals Eliquis (Apixaban) 5 Mg Tab 5 Mg PO BID Hydrocodone-Acetaminophen 5-325 mg Tab 1 Tab PO BID PRN Januvia (Sitagliptin Phosphate) 100 Mg Tab 100 Mg PO DAILY Digitek (Digoxin) 0.25 Mg Tab 0.25 Mg PO EVERY OTHER DAY Review of Systems General / Constitutional: No: Fever Eyes: No: Visual changes HENT: No: Headaches Cardiovascular: Positive: Chest Pain or Discomfort Respiratory: Positive: Shortness of Breath Gastrointestinal: No: Abdominal Pain Genitourinary: No: Dysuria Musculoskeletal: No: Pain Skin: No Rash Neurologic: No: Weakness Psychiatric: No: Depression Endocrine: No: Polydipsia Hematologic/Lymphatic: No: Easy Bruising Physical Exam Narrative GENERAL: NAD, Nontoxic SKIN: Focused skin assessment warm/dry. HEAD: Atraumatic. Normocephalic. EYES: Pupils equal and round. No scleral icterus. No injection or drainage. ENT: No nasal bleeding or discharge. Mucous membranes pink and moist. NECK: Trachea midline. No JVD. CARDIOVASCULAR: Regular rate and rhythm. No murmur appreciated. RESPIRATORY: No accessory muscle use. Clear to auscultation. Breath sounds equal bilaterally. GASTROINTESTINAL: Abdomen soft, non-tender, nondistended. Hepatic and splenic margins not palpable. MUSCULOSKELETAL: No obvious deformities. No clubbing. No cyanosis. No edema. NEUROLOGICAL: Awake and alert. No obvious cranial nerve deficits. Motor grossly within normal limits. Normal speech. PSYCHIATRIC: Appropriate mood and affect; insight and judgment normal. Data Data Last Documented VS Vital Signs Date Time Temp Pulse Resp B/P Pulse Ox O2 Delivery O2 Flow Rate FiO2 11/13/16 18:00 96 Room Air 11/13/16 17:55 98.1 68 12 184/78 Orders Electrocardiogram (11/13/16 18:07) B-Type Natriuretic Peptide (11/13/16 18:07) Ckmb (Isoenzyme) Profile (11/13/16 18:07) Complete Blood Count With Diff (11/13/16 18:) Comprehensive Metabolic Panel (11/13/16 18:) Digoxin (11/13/16 18:07) Magnesium (Mg) (11/13/16 18:07) Prothrombin Time / Inr (Pt) (11/13/16 18:) Act Partial Throm Time (Ptt) (11/13/16 18:07) Troponin I (11/13/16 18:07) Lipase (11/13/16 18:07) Chest, Single Ap (11/13/16 18:07) Ecg Monitoring (11/13/16 18:07) Iv Access Insert/Monitor (11/13/16 18:07) Oximetry (11/13/16 18:07) Aspirin Chew (Aspirin Chew) (11/13/16 18:15) Sodium Chloride 0.9% Flush (Ns Flush) (11/13/16 18:15) Nitroglycerin 0.4 Mg Q5m X3 (11/13/16 18:15) [facility] Medical Decision Making Medical Screen Exam Complete: Yes Emergency Medical Condition: Yes Interpretation(s) EKG at 1811: NSR at 66npm, patient with st seg depression lateral leads Vital Signs Date Time Temp Pulse Resp B/P Pulse Ox O2 Delivery O2 Flow Rate FiO2 11/13/16 18:00 96 Room Air 11/13/16 17:55 98.1 68 12 184/78 96 Room Air Differential Diagnosis differential includes acs, unstable angina, electrolyte abnormality Narrative Course 81 year old female who presents to ER with c/o of chest pain. Patient has been having chest pain for the past few weeks - reports chest pain exacerbated on exertion. She called Dr. Metcalf today as she is scheduled for a cardiac cath. Plan to admit patient to medicine service with consult to cardio for unstable angina Case reviewed with Dr. Banuelos (Dr. Metcalf's partner) - will heparanize and admit for unstable angina. Diagnosis Primary Impression: Unstable angina Admitting Information Admitting Physician Requests: Admit Jennifer Salgado DO Nov 13, 2016 18:28
[2016-11-13] MEDS ORDERED: HEPARIN-D5W INJ 250 ML IV SCH (18:30)
[2016-11-13 18:42] LABS: AUTOMATED NEUTROPHIL # 5.6 TH/MM3 (1.8-7.7); BASOPHIL # 0.1 TH/MM3 (0-0.2); BASOPHIL % 0.7 % (0.0-2.0); EOSINOPHIL # 0.2 TH/MM3 (0-0.4); EOSINOPHIL % 2.6 % (0.0-4.0); HEMATOCRIT 39.9 % (35.0-46.0); HEMO FLAGS DIFF FINAL; LYMPH % 30.6 % (9.0-44.0); LYMPHOCYTE # 2.9 TH/MM3 (1.0-4.8); MEAN CELL VOLUME 86.1 FL (80.0-100.0); MEAN CORPUSCULAR HEMOGLOBIN 28.4 PG (27.0-34.0); MEAN CORPUSCULAR HGB CONC 32.9 % (32.0-36.0); NEUT % 60.1 % (16.0-70.0); PLATELET COUNT 261 TH/MM3 (150-450); RED BLOOD COUNT 4.64 MIL/MM3 (4.00-5.30); RED CELL DISTRIBUTION WIDTH 16.1 % (11.6-17.2); WHITE BLOOD COUNT 9.3 TH/MM3 (4.0-11.0)
[2016-11-13] MEDS: NITROGLYCERIN 0.4 MG SL 25 TABS/BTL SL SCH ×3 (18:47→18:53)
[2016-11-13 18:53] LABS: APTT (PATIENT) 24.5 SEC (24.3-30.1); INTERNATIONAL NORMALIZED RATIO 0.9 RATIO; PROTHROMBIN TIME - PATIENT 10.1 SEC (9.8-11.6)
[2016-11-13] MEDS ORDERED: AMLO2.5T PO (19:01)
--- NOTE | 2016-11-13 19:06 | RADRPT ---
EXAM DATE/TIME: 11/13/2016 18:33 [facility] COMPARISON: CHEST SINGLE AP, October 25, 2016, 17:36. INDICATIONS : Chest pain, short of breath. Patient has bee wearing a halter monitor x 1 week. MEDICAL HISTORY : Diabetes mellitus type II. Hypertension Myocardial infarction. coronary artery disease SURGICAL HISTORY : Coronary artery stent. CABG. ENCOUNTER: Initial ACUITY: 1 month PAIN SCORE: 2/10 LOCATION: Bilateral chest FINDINGS: A single view of the chest demonstrates the lungs to be symmetrically aerated without evidence of mas s, infiltrate or effusion. The cardiomediastinal contours are unremarkable. Sternal wires from prev ious bypass are noted. Degenerative changes about right shoulder. CONCLUSION: Negative for failure. Previous bypass. Zhao Phan MD FACR on November 13, 2016 at 19:04 Board Certified Radiologist. This report was verified electronically.
[2016-11-13 19:08] VITALS: BP 192/92; PULSE 68; RESP 18; TEMP 98.7; O2SAT 98
[2016-11-13 19:10] LABS: ANION GAP 9 MEQ/L (5-15); AST (GOT) 22 U/L (15-37); BICARBONATE 26.3 MEQ/L (21.0-32.0); BLOOD UREA NITROGEN 25 MG/DL (7-18); CHLORIDE 102 MEQ/L (98-107); GLOMERULAR FILTRATION RATE 57 ML/MIN (>89); MAGNESIUM 1.9 MG/DL (1.5-2.5); POTASSIUM 4.1 MEQ/L (3.5-5.1); SODIUM (NA) 137 MEQ/L (136-145)
[2016-11-13 19:12] VITALS: BP 119/60; PULSE 67; RESP 17; O2SAT 95
[2016-11-13 19:25] LABS: ALKALINE PHOSPHATASE 70 U/L (45-117); ALT (GPT) 24 U/L (10-53); TOTAL BILIRUBIN ADULT 0.2 MG/DL (0.2-1.0)
[2016-11-13 19:32] LABS: CREATINE KINASE 49 U/L (26-192)
--- NOTE | 2016-11-13 19:52 | PD ---
Data Data Last Documented VS Vital Signs Date Time Temp Pulse Resp B/P Pulse Ox O2 Delivery O2 Flow Rate FiO2 11/13/16 19:14 68 17 97 Nasal Cannula 2 11/13/16 19:12 119/60 11/13/16 19:08 98.7 Orders Electrocardiogram (11/13/16 18:07) B-Type Natriuretic Peptide (11/13/16 18:07) Ckmb (Isoenzyme) Profile (11/13/16 18:07) Complete Blood Count With Diff (11/13/16 18:07) Comprehensive Metabolic Panel (11/13/16 18:07) Digoxin (11/13/16 18:07) Magnesium (Mg) (11/13/16 18:07) Prothrombin Time / Inr (Pt) (11/13/16 18:07) Act Partial Throm Time (Ptt) (11/13/16 18:07) Troponin I (11/13/16 18:07) Lipase (11/13/16 18:07) Chest, Single Ap (11/13/16 18:07) Ecg Monitoring (11/13/16 18:07) Iv Access Insert/Monitor (11/13/16 18:07) Oximetry (11/13/16 18:07) Aspirin Chew (Aspirin Chew) (11/13/16 18:15) Sodium Chloride 0.9% Flush (Ns Flush) (11/13/16 18:15) Nitroglycerin Sl (Nitrostat Sl) (11/13/16 18:15) Consult Cardiology (11/13/16 ) Heparin Infusion RAMON.Q1H (11/13/16 18:29) Heparin-D5w Inj (Heparin-D5w Inj) (11/13/16 18:30) (Hub Use Only)Inp Phy Cons/Ref (11/13/16 ) Labs Laboratory Tests Test 11/13/16 18:20 White Blood Count 9.3 TH/MM3 Red Blood Count 4.64 MIL/MM3 Hemoglobin 13.2 GM/DL Hematocrit 39.9 % Mean Corpuscular Volume 86.1 FL Mean Corpuscular Hemoglobin 28.4 PG Mean Corpuscular Hemoglobin 32.9 % Concent Red Cell Distribution Width 16.1 % Platelet Count 261 TH/MM3 Mean Platelet Volume 6.8 FL Neutrophils (%) (Auto) 60.1 % Lymphocytes (%) (Auto) 30.6 % Monocytes (%) (Auto) 6.0 % Eosinophils (%) (Auto) 2.6 % Basophils (%) (Auto) 0.7 % Neutrophils # (Auto) 5.6 TH/MM3 Lymphocytes # (Auto) 2.9 TH/MM3 Monocytes # (Auto) 0.6 TH/MM3 Eosinophils # (Auto) 0.2 TH/MM3 Basophils # (Auto) 0.1 TH/MM3 CBC Comment DIFF FINAL Differential Comment Prothrombin Time 10.1 SEC Prothromb Time International 0.9 RATIO Ratio Activated Partial 24.5 SEC Thromboplast Time Sodium Level 137 MEQ/L Potassium Level 4.1 MEQ/L Chloride Level 102 MEQ/L Carbon Dioxide Level 26.3 MEQ/L Anion Gap 9 MEQ/L Blood Urea Nitrogen 25 MG/DL Creatinine 0.94 MG/DL Estimat Glomerular Filtration 57 ML/MIN Rate Random Glucose 147 MG/DL Calcium Level 8.7 MG/DL Magnesium Level 1.9 MG/DL Total Bilirubin 0.2 MG/DL Aspartate Amino Transf 22 U/L (AST/SGOT) Alanine Aminotransferase 24 U/L (ALT/SGPT) Alkaline Phosphatase 70 U/L Total Creatine Kinase 49 U/L Troponin I LESS THAN 0.02 NG/ML B-Type Natriuretic Peptide 115 PG/ML Total Protein 7.0 GM/DL Albumin 3.5 GM/DL Lipase 293 U/L Digoxin Level 1.0 NG/ML MDM Supervised Visit with FAM: No Narrative Course The patient was initially evaluated by the previous provider and sent out to me at the beginning of my shift. See her note for further details. Briefly this is an 81-year-old female who has history of CAD who has been having intermittent chest pain for the last 2 weeks. She has history of factor V Leiden deficiency and is on Eliquis. Her senior mechanical development engineer is Dr. Metcalf. He advised that the patient present to the emergency department to be admitted for unstable angina, placed on heparin, and plan for cardiac cath. EKG is concerning for lateral ischemia with ST depressions and T-wave abnormalities in the lateral leads. There are no ST segment elevations. Vital signs show heart rate 67, blood pressure 119/60, pulse ox 95% on room air , oral temp of 98.7 from high. CBC and CMP are essentially unremarkable. Cardiac enzymes are negative. Digoxin level is 1. Chest x-ray: Negative for failure. Previous bypass. Patient made aware of all findings. She is resting comfortably. She has already been placed on a heparin drip by the previous provider. She will be admitted for further treatment and evaluation. Case discussed with [facility] hospitalist ELODIA Fernandez. The patient will be admitted to their service under Dr. Fuentes. Diagnosis Primary Impression: Unstable angina Admitting Information Admitting Physician Requests: Admit Humble Lr MD Nov 13, 2016 19:52
[2016-11-13] MEDS ORDERED: ONDANSETRON HCL 4 MG/2 ML VIAL IVP PRN (22:30)
[2016-11-13] MEDS ORDERED: GLUCAGON 1 MG/ML VIAL OTHER PRN (22:30)
[2016-11-13] MEDS ORDERED: BISACODYL 10 MG SUPP RECTAL PRN (22:30)
[2016-11-13] MEDS ORDERED: NALOXONE HCL 0.4 MG/ML AMP IV PRN (22:30)
[2016-11-13] MEDS ORDERED: LACTULOSE SYRUP 20 GM/30 ML CUP PO PRN (22:30)
[2016-11-13] MEDS ORDERED: DEXTROSE 50% IN WATER 50 ML VIAL(D50) IV PRN (22:30)
[2016-11-13] MEDS ORDERED: SENNOSIDES 8.6 MG TAB PO PRN (22:30)
[2016-11-13] MEDS ORDERED: SODIUM CHLORIDE 0.9% FLUSH 10 ML FLUSH IV FLUSH PRN (22:30)
[2016-11-13] MEDS ORDERED: MAGNESIUM HYDROXIDE SUSP 30 ML CUP PO PRN (22:30)
[2016-11-13 22:46] VITALS: BP 135/77; PULSE 58; RESP 16; O2SAT 10; O2SAT 100
[2016-11-13 23:11] VITALS: BP 154/83; PULSE 58; RESP 18; TEMP 98.1; O2SAT 100
[2016-11-14] VITALS (28 sets, daily range): BP systolic 138–164; BP diastolic 71–97; PULSE 55–78; RESP 16–18; TEMP 97.5–98.7; O2SAT 96–99
[2016-11-14] MEDS: DIAZEPAM 5 MG TAB PO PRN ×2 (00:45→21:38)
[2016-11-14 03:52] LABS: AUTOMATED NEUTROPHIL # 3.3 TH/MM3 (1.8-7.7); BASOPHIL % 0.5 % (0.0-2.0); EOSINOPHIL # 0.3 TH/MM3 (0-0.4); EOSINOPHIL % 3.5 % (0.0-4.0); HEMATOCRIT 35.7 % (35.0-46.0); HEMO FLAGS DIFF FINAL; LYMPH % 48.9 % (9.0-44.0); MEAN CELL VOLUME 85.8 FL (80.0-100.0); MEAN CORPUSCULAR HEMOGLOBIN 28.5 PG (27.0-34.0); MEAN CORPUSCULAR HGB CONC 33.2 % (32.0-36.0); MONO % 6.7 % (0.0-8.0); NEUT % 40.4 % (16.0-70.0); PLATELET COUNT 235 TH/MM3 (150-450); RED BLOOD COUNT 4.17 MIL/MM3 (4.00-5.30); RED CELL DISTRIBUTION WIDTH 16.1 % (11.6-17.2); WHITE BLOOD COUNT 8.2 TH/MM3 (4.0-11.0)
[2016-11-14 04:04] LABS: BICARBONATE 26.5 MEQ/L (21.0-32.0)
[2016-11-14 04:05] LABS: POTASSIUM 4.2 MEQ/L (3.5-5.1)
[2016-11-14] MEDS: INSULIN ASPART SUPPLEMENTAL SCALE SQ SCH ×4 (05:06→21:00)
[2016-11-14] MEDS: SODIUM CHLORIDE 0.9% FLUSH 10 ML FLUSH IV FLUSH SCH ×2 (08:18→21:41)
[2016-11-14] MEDS: DOCUSATE SODIUM 50 MG/SENNA 8.6 MG TAB PO SCH ×2 (08:19→21:34)
[2016-11-14] MEDS ORDERED: PILL SPLITTER OTHER PRN (09:45)
--- NOTE | 2016-11-14 12:32 | MH ---
cc: LISA SALES MD DATE OF ADMISSION: 11/13/2016 DATE OF 1935 CHIEF COMPLAINT Chest pain and fatigue. RECENT TRAVEL HISTORY Travel to the last 30 days none. HISTORY OF PRESENT ILLNESS This is a pleasant well-developed 81-year-old female who has been fairly active in her life. Up till the last six months to a year with her cardiovascular disease. She had single vessel bypass in 2014 but she has had multiple cardiac stents and is now struggling with some fatigue as well as chest pain. She noted approximately 6 weeks ago the chest pain was worse with exertion and even when she was not having chest pain she was fatigued. The patient has been followed closely by her supervisor nutritional yeast and PCP and has had several cardiac workups done. She does have a significant history of atrial fibrillation and has been placed on Eliquis. The patient noted the chest pain to worsen with the fatigue worsening over the past few days. She did follow up with Dr. Metcalf yesterday and he requested that she come to the hospital for further testing and cardiac catheterization. The patient is now pain free and she does note that her pain is midsternal radiates into the left arm and left axilla up into the back and into the left side of her neck. She denies any nausea, vomiting, no fever or cough. She does have some lightheadedness and has had some episodes of uncontrolled hypertension with headache associated. PAST MEDICAL HISTORY: 1. Arthritis. 2. Atrial fibrillation 3. panic attacks 4. cardiovascular disease. 5. chest pain. 6. Diabetes with medical management. 7. Cerebrovascular accident mild. 8. Reflux 9. hiatal hernia. 10. Gastroesophageal reflux disease 11. Chronic fatigue. 12. Fibromyalgia. 13. Myocardial infarction 2004 per the record. PAST SURGICAL HISTORY: 1. Multiple stents. 2. Coronary artery bypass graft. 3. Appendectomy. 4. Knee replacements. 5. Cholecystectomy. 6. Cataract surgery in 2013. 7. Hysterectomy 8. Bilateral joint replacement in her knees ALLERGIES MACROBID PENICILLIN SULFA MEDICATIONS: 1. Metoprolol 2. Metformin 3. Eliquis. 4. Hydrocodone 5. Januvia 6. Dig. SOCIAL HISTORY The patient , currently lives home with her . She has never consumed, tobacco, alcohol or illicit drugs. REVIEW OF SYSTEMS Review of systems as noted in the history of present illness, which includes; chest pain, radiating into the left axillae, back and neck. uncontrolled hypertension, lightheadedness, mild headache at times, fatigue other systems not mentioned negative or unremarkable. PHYSICAL EXAMINATION: VITAL SIGNS: Temperature 97.7. Pulse labile between 58 and 68, respirations 18, blood pressure 145/97, O2 sat 97 currently on room air. GENERAL: Well-nourished, well-developed elderly female looks younger than her stated age resting in the Bed she is alert, oriented and good historian. SKIN: Skin is pink, warm and dry. HEAD, EYES, EARS, NOSE, AND THROAT: Atraumatic, normocephalic. No scleral icterus. Mucous membranes pink and moist. NECK: The neck is supple. CARDIOVASCULAR SYSTEM: S1-S2, The rhythm is slow but regular possible mild systolic murmur noted at the left sternal border. She has no edema and her extremities are warm. PULMONARY; the pulmonary is essentially clear anteriorly and posteriorly with no wheezes, rales or rhonchi. ABDOMEN: Flat, soft, nontender, nondistended. Bowel sounds active. MUSCULOSKELETAL: No obvious deformities. Moves her extremities with purpose. NEUROLOGICALLY: She is alert, oriented good historian. Speech is clear. Equal hand rotor pilot. PSYCHIATRIC: Appropriate mood and affect. DIAGNOSTIC DATA: White blood cell count 8.2, red blood cells 4.17, hemoglobin 11.9, hematocrit 35.7, platelet count 235 INR 0.9, APTT 31. Chemistry sodium 140, 10-4.2 chloride 105, CO2 26.5, BUN 23, creatinine 0.93, glucose 119, GFR 68. Troponins are less then 0.02. BMP is 115. Toxicology shows her dig to be 1. IMAGING STUDIES: Chest x-ray to be negative for any heart failure. Previous bypass is noted. ASSESSMENT: 1. Chest pain, rule out myocardial infarction, unstable angina, history of cardiovascular disease. 2. Diabetes mellitus type 2 controlled with oral hypoglycemics will monitor her Accu-Chek's and her sliding scale and maintain her blood sugar within normal range as much as possible. We will give her a heart healthy diet ADA. 3. She is admitted inpatient status. We will consult cardiology for their expert opinion, bowel regimen, pain management we will reconcile the medications needed. She has valium ordered 5 mg p.o. at hs as needed. 4. D-Dimer has been ordered this morning. Vascular access seen for ultrasound per Dr. Sales. We will continue to monitor her needs with the supervisor nutritional yeast team. The patients course of treatment will be based on the findings of the testings, over the next few days. The patient is full code, full aggressive care and we will follow. Lisa Sales MD DICTATED BY: DAVE Beebe/gertrude /11:25 AM /11:59 AM seen, examined by myself, Dr Sales, today Discussed with patient Still has some chest discomfort She is currently on heparin drip Eliquis is on hold Cardiac catheterization on Thursday Blood pressure has been elevated Adjustments made for blood pressure medications Discussed with mid level provider The exam, history, and the medical decision-making described in the above note were completed with the assistance of the mid-level provider. I reviewed the findings presented. I attest that I had a [id number] encounter with the patient on the same day, and personally performed and documented my assessment and findings in the medical record. REGGIE
[2016-11-14] MEDS: DIGOXIN 0.125 MG TAB PO SCH (12:56)
[2016-11-14] MEDS: amLODIPine BESYLATE 5 MG TAB PO SCH (12:57)
--- NOTE | 2016-11-14 12:58 | PD.CONS ---
HPI Service Cardiology Physicians Consult Requested By Dr. Salgado Reason for Consult Unstable angina Primary Care Physician Non-Staff History of Present Illness The patient is an 81 year old female known to our practice with a cardiac history of ASHD with recent negative nuclear stress test, atrial fibrillation and flutter, descending thoracic aortic aneurysm last evaluated 2014, history of pulmonary embolism, factor V leiden, diabetes and hypertension. The patient presented to the hospital due to left chest pain that is described as an ache that radiates to her back and around her left side associated with extreme SOB with minimal activity. She states her symptoms have been getting progressively worse over the past 5 weeks. Symptoms started suddenly approximately 5 weeks ago when she came into the ER. She stood up and had a syncopal episode. When she arrived on that visit her BP was very high and she had atrial flutter with high ventricular rate. Since admission, her troponin is negative X 3 and EKG is unchanged compared to previous. (Mara Parnell) Review of Systems Consitutional: COMPLAINS OF: Fatigue, DENIES: Fever, Chills, Weight gain, Weight loss Eyes: DENIES: Amaurosis Fugax, Change in vision HEENT: COMPLAINS OF: Lightheadedness, DENIES: Change in hearing Respiratory: COMPLAINS OF: Shortness of breath, DENIES: See HPI, Cough, Snoring, Wheezing, Sputum production Cardiovascular: COMPLAINS OF: Chest pain, DENIES: See HPI, Palpitations, Syncope, Tachycardia Gastrointestinal: DENIES: Nausea, Vomiting, Change in bowel habits, Reflux, Bloody stools, Melena Genitourinary: DENIES: Urinary incontinence, Difficulty voiding Integumentary: DENIES: Rash Neurologic: DENIES: Tingling or numbness, Memory problems, Poor Balance, Stroke symptoms Musculoskeletal: DENIES: Joint pain, Muscle pain, Limited range of motion, Back pain Psychiatric: DENIES: Anxiety, Depression, Sleep disturbances Hematologic: DENIES: Bruising tendencies, Bleeding tendencies Endocrine: DENIES: Weight gain, Weight loss, Thyroid disease (Mara Parnell ) Past Family Social History Allergies: Coded Allergies: Macrobid (Verified Allergy, Severe, 11/13/16) Sulfa (Verified Allergy, Severe, 11/13/16) Penicillin (Verified Allergy, Unknown, 11/13/16) Past Medical History ASHD PE Factor V Leiden atrial fibrillation Hypertension hyperlipidemia aortic aneurysm diabetes gerd Past Surgical History CABG 03/2015 Cardiac caths 2004 with stent, 2011 with stent, 2014 with stent bilateral knee replacements 2008 and 2009 cholecystectomy 2005 hysterectomy 1968 Reported Medications Reported Meds & Active Scripts Active Cardizem CD 24 HR (Diltiazem CD 24 HR) 120 Mg Caper 120 Mg PO DAILY Refills per Dr. Metcalf Reported Amlodipine (Amlodipine Besylate) 2.5 Mg Tab 2.5 Mg PO DAILY Metoprolol Tartrate 25 Mg Tab 37.5 Mg PO BID Digitek (Digoxin) 0.25 Mg Tab 0.125 Mg PO EVERY OTHER DAY Metformin ER (Metformin HCl) 500 Mg John 1,000 Mg PO BID With meals Eliquis (Apixaban) 5 Mg Tab 5 Mg PO BID Hydrocodone-Acetaminophen 5-325 mg Tab 1 Tab PO BID PRN Januvia (Sitagliptin Phosphate) 100 Mg Tab 100 Mg PO DAILY Digitek (Digoxin) 0.25 Mg Tab 0.25 Mg PO EVERY OTHER DAY Active Ordered Medications Current Medications Medications (Trade) Dose Ordered Sig/Ambika Route Start Time Stop Time Status Last Admin (Heparin-D5W Inj) 250 ml @ 0 mls/hr TITRATE IV 11/13/16 18:30 11/13/16 18:55 (NS Flush) 2 ml UNSCH PRN IV FLUSH 11/13/16 22:30 (NS Flush) 2 ml BID IV FLUSH 11/14/16 09:00 (Zofran Inj) 4 mg Q6H PRN IVP 11/13/16 22:30 (Narcan Inj) 0.4 mg UNSCH PRN IV 11/13/16 22:30 (Audrey-Colace) 1 tab BID PO 11/14/16 09:00 (Milk Of Magnesia Liq) 30 ml Q12H PRN PO 11/13/16 22:30 (Senokot) 17.2 mg Q12H PRN PO 11/13/16 22:30 (Dulcolax Supp) 10 mg DAILY PRN RECTAL 11/13/16 22:30 (Lactulose Liq) 30 ml DAILY PRN PO 11/13/16 22:30 (D50w (Vial) Inj) 50 ml UNSCH PRN IV 11/13/16 22:30 (Glucagon Inj) 1 mg UNSCH PRN OTHER 11/13/16 22:30 (Valium) 5 mg HS PRN PO 11/14/16 00:30 11/14/16 00:45 (Eliquis) 5 mg BID PO 11/14/16 21:00 Future Hold (Cardizem Cd) 120 mg DAILY PO 11/15/16 09:00 (Hurricane 5-325 Mg) 1 tab BID PRN PO 11/14/16 09:45 (Lopressor) 37.5 mg BID PO 11/14/16 21:00 (Pill Splitter) 1 ea UNSCH PRN OTHER 11/14/16 09:45 (Norvasc) 2.5 mg DAILY PO 11/14/16 12:00 Family History non contributory Social History non smoker, does not drink alcohol (Mara Parnell) Physical Exam Vital Signs Vital Signs Date Time Temp Pulse Resp B/P Pulse Ox O2 Delivery O2 Flow Rate FiO2 11/14/16 12:07 78 11/14/16 11:44 63 11/14/16 11:00 98.0 66 18 164/82 97 11/14/16 10:36 65 11/14/16 09:09 62 11/14/16 08:00 68 11/14/16 07:00 97.7 68 18 145/97 97 11/14/16 07:00 58 11/14/16 06:00 60 11/14/16 05:00 59 11/14/16 04:00 55 11/14/16 03:00 97.5 61 18 141/73 99 11/14/16 03:00 60 11/14/16 02:00 61 11/14/16 01:00 60 11/14/16 00:00 60 11/13/16 23:11 98.1 58 18 154/83 100 11/13/16 22:46 58 16 135/77 100 Nasal Cannula 2 11/13/16 19:14 68 17 97 Nasal Cannula 2 11/13/16 19:12 67 17 119/60 95 Room Air 11/13/16 19:08 98.7 68 18 192/92 98 11/13/16 18:00 96 Room Air 11/13/16 17:55 98.1 68 12 184/78 96 Room Air Physical Exam GENERAL: Elderly female in CVSDU SKIN: Warm and dry. HEAD: Atraumatic. Normocephalic. EYES: Pupils equal and round. No scleral icterus. No injection or drainage. ENT: No nasal bleeding or discharge. Mucous membranes pink and moist. NECK: Trachea midline. 3 cm JVD CARDIOVASCULAR: Regular rate and rhythm. RESPIRATORY: No accessory muscle use. Clear to auscultation. Breath sounds equal bilaterally. GASTROINTESTINAL: Abdomen soft, non-tender, nondistended. MUSCULOSKELETAL: Extremities without clubbing, cyanosis, or edema. NEUROLOGICAL: Awake and alert. No obvious cranial nerve deficits. Motor grossly within normal limits. Five out of 5 muscle strength in the arms and legs. Normal speech. PSYCHIATRIC: Appropriate mood and affect; insight and judgment normal. Laboratory Laboratory Tests Test 11/13/16 11/14/16 11/14/16 18:20 00:53 03:12 White Blood Count 9.3 8.2 Red Blood Count 4.64 4.17 Hemoglobin 13.2 11.9 Hematocrit 39.9 35.7 Mean Corpuscular Volume 86.1 85.8 Mean Corpuscular Hemoglobin 28.4 28.5 Mean Corpuscular Hemoglobin 32.9 33.2 Concent Red Cell Distribution Width 16.1 16.1 Platelet Count 261 235 Mean Platelet Volume 6.8 6.9 Neutrophils (%) (Auto) 60.1 40.4 Lymphocytes (%) (Auto) 30.6 48.9 Monocytes (%) (Auto) 6.0 6.7 Eosinophils (%) (Auto) 2.6 3.5 Basophils (%) (Auto) 0.7 0.5 Neutrophils # (Auto) 5.6 3.3 Lymphocytes # (Auto) 2.9 4.0 Monocytes # (Auto) 0.6 0.5 Eosinophils # (Auto) 0.2 0.3 Basophils # (Auto) 0.1 0.0 CBC Comment DIFF FINAL DIFF FINAL Differential Comment Prothrombin Time 10.1 Prothromb Time International 0.9 Ratio Activated Partial 24.5 31.0 Thromboplast Time Sodium Level 137 140 Potassium Level 4.1 4.2 Chloride Level 102 105 Carbon Dioxide Level 26.3 26.5 Anion Gap 9 9 Blood Urea Nitrogen 25 23 Creatinine 0.94 0.93 Estimat Glomerular Filtration 57 58 Rate Random Glucose 147 119 Calcium Level 8.7 8.8 Magnesium Level 1.9 Total Bilirubin 0.2 Aspartate Amino Transf 22 (AST/SGOT) Alanine Aminotransferase 24 (ALT/SGPT) Alkaline Phosphatase 70 Total Creatine Kinase 49 Troponin I LESS THAN 0.02 LESS THAN 0.02 B-Type Natriuretic Peptide 115 Total Protein 7.0 Albumin 3.5 Lipase 293 Digoxin Level 1.0 (Mara Parnell) Result Diagram: 11/14/1631111/14/162 Imaging Last 72 hours Impressions Chest X-Ray 11/13/16 1807 Signed Impressions: Service Date/Time: November 18:33 - CONCLUSION: Negative for failure. Previous bypass. Zhao Phan MD FACR (Mara Parnell) Assessment and Plan Assessment and Plan Chest pain - troponin negative X 3. EKG unchanged compared to previous. TWI in lateral leads Hx ASHD with CABG and multiple stents, negative lexiscan 10/26/2016 Atrial fibrillation/flutter on Eliquis last dose 11/13/2016 in the evening. Hx of pulmonary embolism with Factor V leiden mutation on Eliquis Hypertension Hyperlipidemia Diabetes Borderline low platelets PLAN: Will check CTA chest for concern for recurrent PE despite oral AC therapy with Eliquis. If this is negative, we will discuss proceeding with cardiac catheterization. If she is positive for new pulmonary embolism, we will have hematology evaluate her and consideration for IVC filter. Continue heparin. Resume antihypertensive therapy. Patient was seen and evaluated by Dr Metcalf who completed [id number] time, completed physical exam and participated in the evaluation and management of the patient. (Mara Parnell) Assessment and Plan The exam, history, and the medical decision-making described in the above note were completed with the assistance of the mid-level provider. I reviewed and agree with the findings presented. I attest that I had a [id number] encounter with the patient on the same day, and personally performed and documented my assessment and findings in the medical record. (Kain Metcalf MD) Mara Parnell Nov 14, 2016 12:58 Kain Metcalf MD Nov 14, 2016 14:54
[2016-11-14 13:20] LABS: APTT (PATIENT) 30.3 SEC (24.3-30.1)
[2016-11-14] MEDS ORDERED: IOHEXOL 350 MG/ML 10 ML VIAL (for RAD DIAG) IV ONE (14:35)
--- NOTE | 2016-11-14 14:58 | RADRPT ---
EXAM DATE/TIME: 11/14/2016 14:31 [facility] COMPARISON: CT PULMONARY ANGIOGRAM, December 16, 2014, 23:18. INDICATIONS : Chest pain,evaluate for possible pulmonary emoblism. IV CONTRAST: 75 cc Omnipaque 350 (iohexol) IV RADIATION DOSE: 23.09 CTDIvol (mGy) MEDICAL HISTORY : Hypertension. Cardiovascular disease SURGICAL HISTORY : Appendectomy. Cholecystectomy.Cardiac Catherization ENCOUNTER: Initial ACUITY: 2 days PAIN SCALE: 3/10 LOCATION: chest TECHNIQUE: Volumetric scanning of the chest was performed using a pulmonary embolism protocol MIP images were re constructed. Using automated exposure control and adjustment of the mA and/or kV according to patien t size, radiation dose was kept as low as reasonably achievable to obtain optimal diagnostic quality images. DICOM format image data is available electronically for review and comparison. Follow-up recommendations for detected pulmonary nodules are based at a minimum on nodule size and pa tient risk factors according to Fleischner Society Guidelines. FINDINGS: PULMONARY ARTERIES: No filling defects are seen in the pulmonary arteries through the segmental level. LUNGS: There is a stable 3 mm right middle lobe pulmonary nodule and 4 mm right lower lobe pulmonary nodule. PLEURAE: There is no pleural thickening or pleural effusion. MEDIASTINUM: Heart and great vessels demonstrate no acute finding. There are stents in the left anterior descendin g coronary artery along with coronary artery calcification. There is severe atherosclerotic disease o f aorta. Ascending aorta is aneurysmal measuring up to 4.4 cm compared to 4.2 cm previously. No lymph adenopathy is visualized. MUSCULOSKELETAL: There are degenerative changes of the thoracic spine. Patient is post median sternotomy. MISCELLANEOUS: The visualized upper abdominal organs demonstrate no acute abnormality. Small moderate size hiatal he rnia is present. There is a stable 7 mm left hepatic cyst. CONCLUSION: 1. No PE is identified. Additionally, no acute finding is identified to explain the patient's chest p ain. 2. The right middle and right lower lobe pulmonary nodules measure up to 4 mm and have been stable si nce December 2014, consistent with a benign process. 3. Ascending aortic aneurysm has slightly increased in size from the prior study. Currently measuring up to 4.4 cm compared to 4.2 cm previously. Isreal De Leon MD on November 14, 2016 at 14:49 Board Certified Radiologist. This report was verified electronically.
--- NOTE | 2016-11-14 15:33 | EKG ---
Date Performed: 11/14/2016 Time Performed: 03:14:14 PTAGE: 81 years EKG: Sinus rhythm with borderline 1st degree A-V block Diffuse nonspecific ST-T change Compared to prior tracing no si gnificant change Abnormal ECG PREVIOUS TRACING : 11/13/2016 0611 DOCTOR: Som Ellsworth Interpretating Date/Time 11/14/2016 15:32:27
--- NOTE | 2016-11-14 15:33 | EKG ---
Date Performed: 11/14/2016 Time Performed: 08:57:32 PTAGE: 81 years EKG: Sinus rhythm . Diffuse nonspecific ST-T change Compared to prior tracing no significant change Abnormal ECG PREVIOUS TRACING : 11/14/2016 03.14 DOCTOR: Som Ellsworth Interpretating Date/Time 11/14/2016 15:32:55
--- NOTE | 2016-11-14 15:33 | EKG ---
Date Performed: 11/13/2016 Time Performed: 18:11:29 PTAGE: 81 years EKG: Sinus rhythm Diffuse nonspecific ST-T wave change Compared to previous tracing, there is slight improvement in th e T wave changes, otherwise no significant change ABNORMAL ECG PREVIOUS TRACING : 10/26/2016 01.07 DOCTOR: Som Ellsworth Interpretating Date/Time 11/14/2016 15:31:49
[2016-11-14] MEDS ORDERED: cloNIDine HCL 0.1 MG TAB PO PRN (18:00)
[2016-11-14] MEDS ORDERED: APIXABAN 5 MG TABLET PO SCH (21:00)
[2016-11-14] MEDS: METOPROLOL TARTRATE 25 MG TAB PO SCH (21:37)
[2016-11-14] MEDS: HEPARIN SODIUM - SQ 10,000 UNITS/ML VIAL SQ SCH (21:39)
[2016-11-15] VITALS (27 sets, daily range): BP systolic 106–141; BP diastolic 58–77; PULSE 58–75; RESP 16–17; TEMP 97.8–98.6; O2SAT 97–98
[2016-11-15] MEDS: INSULIN ASPART SUPPLEMENTAL SCALE SQ SCH ×4 (05:37→21:00)
[2016-11-15] MEDS: amLODIPine BESYLATE 5 MG TAB PO SCH (07:57)
[2016-11-15] MEDS: HEPARIN SODIUM - SQ 10,000 UNITS/ML VIAL SQ SCH ×2 (07:57→21:46)
[2016-11-15] MEDS: DIGOXIN 0.25 MG TAB PO SCH (07:57)
[2016-11-15] MEDS: DOCUSATE SODIUM 50 MG/SENNA 8.6 MG TAB PO SCH ×2 (07:58→21:48)
[2016-11-15] MEDS: DILTIAZEM-CD 120 MG CAP ER PO SCH (07:58)
[2016-11-15] MEDS: METOPROLOL TARTRATE 25 MG TAB PO SCH ×2 (07:58→21:46)
[2016-11-15] MEDS: SODIUM CHLORIDE 0.9% FLUSH 10 ML FLUSH IV FLUSH SCH ×2 (07:58→21:46)
[2016-11-15] MEDS ORDERED: amLODIPine BESYLATE 5 MG TAB PO SCH (09:00)
--- NOTE | 2016-11-15 15:19 | PD.CARD.PN ---
Objective Vital Signs / I&O Vital Signs Date Time Temp Pulse Resp B/P Pulse Ox O2 Delivery O2 Flow Rate FiO2 11/15/16 15:07 65 11/15/16 14:33 65 11/15/16 13:20 69 11/15/16 12:32 71 11/15/16 11:05 98.6 66 16 132/68 97 11/15/16 11:05 66 11/15/16 10:07 69 11/15/16 09:06 71 11/15/16 08:00 71 11/15/16 07:00 71 11/15/16 07:00 98.0 67 16 126/70 98 11/15/16 06:00 66 11/15/16 05:00 72 11/15/16 05:00 75 16 106/58 98 11/15/16 04:00 72 11/15/16 03:00 64 11/15/16 02:00 58 11/15/16 01:00 60 11/15/16 00:00 64 11/14/16 23:15 66 18 139/74 97 11/14/16 23:00 68 11/14/16 22:00 72 11/14/16 21:00 70 11/14/16 20:00 64 11/14/16 19:30 98.6 73 16 138/73 99 11/14/16 19:00 78 11/14/16 18:18 72 11/14/16 17:04 78 11/14/16 16:00 73 11/14/16 15:37 69 I/O 11/14/16 11/14/16 11/14/16 11/15/16 11/15/16 11/15/16 06:59 14:59 22:59 06:59 14:59 22:59 Intake Total 240 ml 550 ml 480 ml Output Total 1600 ml 1250 ml 1300 ml Balance -1360 ml -700 ml -820 ml Intake Oral 240 ml 450 ml 480 ml IV Total 100 ml Output Urine Total 1600 ml 1250 ml 1300 ml # Bowel Movements 0 0 Assessment and Plan Assessment and Plan PT IS STABLE NO MADISON BUT HAS SOB AND CP C MINIMAL ACTIVITY IN HER ROOM ON HEPARIN FOR CATH THURSDAY PE NL NO GALLOP +1/6 MICH SAME RX FOR NOW Henry Mcintosh Nov 15, 2016 15:19
--- NOTE | 2016-11-15 17:35 | HHI.PR ---
Subjective Interval History Alert, oriented, no current complaints Review of Systems Constitutional Constitutional Remarks 10 systems reviewed and otherwise negative Vitals/Results Intake & Output 11/14/16 11/14/16 11/15/16 15:00 23:00 07:00 Intake Total 550 ml 480 ml Output Total 1250 ml 1300 ml Balance -700 ml -820 ml Intake Oral 450 ml 480 ml IV Total 100 ml Output Urine Total 1250 ml 1300 ml # Bowel Movements 0 0 Vital Signs Vital Signs Date Time Temp Pulse Resp B/P Pulse Ox O2 Delivery O2 Flow Rate FiO2 11/15/16 17:20 72 11/15/16 16:45 68 11/15/16 15:07 65 11/15/16 15:00 97.8 70 17 117/72 98 11/15/16 14:33 65 11/15/16 13:20 69 11/15/16 12:32 71 11/15/16 11:05 98.6 66 16 132/68 97 11/15/16 11:05 66 11/15/16 10:07 69 11/15/16 09:06 71 11/15/16 08:00 71 11/15/16 07:00 71 11/15/16 07:00 98.0 67 16 126/70 98 11/15/16 06:00 66 11/15/16 05:00 72 11/15/16 05:00 75 16 106/58 98 11/15/16 04:00 72 11/15/16 03:00 64 11/15/16 02:00 58 11/15/16 01:00 60 11/15/16 00:00 64 11/14/16 23:15 66 18 139/74 97 11/14/16 23:00 68 11/14/16 22:00 72 11/14/16 21:00 70 11/14/16 20:00 64 11/14/16 19:30 98.6 73 16 138/73 99 11/14/16 19:00 78 11/14/16 18:18 72 CBC/BMP: 11/14/16 0312 11/14/16 0312 Physical Exam General General Appearance: Well Developed, Comfortable Eyes Eye Exam: Pupils Reactive Ears & Nose Ears & Nose Exam: Nasal Mucosa Irvona Throat Throat Exam: Oral Mucosa Irvona & Moist Neck Neck Exam: Trachea Midline Pulmonary Resp Exam: Breath Sounds Equal, No Distress Cardiology CV Exam: Irregular Gastrointestinal/Abdomen GI Exam: Soft, Non-Tender, Bowel Sounds Present Musculoskeletal MS Exam: Joints Intact, Normal Gait, Normal Tone, Good Strength Integumentary Skin Exam: Warm, Dry Extremeties Extremities Exam: No Edema Neurologic Neuro Exam: Alert, Awake, Oriented, Speech Clear, Moving All Extremities, Elevator Starter Equal, No Focal Deficits VTE Prophylaxis VTE Prophylaxis Meds: Heparin Assessment/Plan Assessment/Plan ASSESSMENT: Chest pain on admission, no evidence of VT, Acute coronary syndrome Diabetes mellitus Atrial fibrillation Aortic aneurysm Hyperlipidemia Hypertension History of factor V Leiden with pulmonary embolism, on Eliquis , this is now on hold Anxiety Acid reflux Management Pain control Nitroglycerin as needed Eliquis on hold Heparin 5000 units subcutaneous twice a day Continue other home medications except for diabetes medications Accu-Cheks before meals and at bedtime with sliding scale Other catheterization on Thursday Discussed with director of broadcast Dr. Metcalf Discussed with nurse Discussed with patient 35 minutes Lisa Fuentes MD Nov 15, 2016 17:35
[2016-11-15] MEDS: ACETAMINOPHEN/HYDROcodone 325 MG/5 MG TAB PO PRN (19:42)
[2016-11-15] MEDS: DIAZEPAM 5 MG TAB PO PRN (23:08)
[2016-11-16] VITALS (29 sets, daily range): BP systolic 130–159; BP diastolic 64–95; PULSE 62–73; RESP 16–18; TEMP 97.9–98.6; O2SAT 95–99
[2016-11-16] MEDS: INSULIN ASPART SUPPLEMENTAL SCALE SQ SCH ×4 (05:45→21:00)
[2016-11-16] MEDS: DIGOXIN 0.125 MG TAB PO SCH (08:17)
[2016-11-16] MEDS: amLODIPine BESYLATE 5 MG TAB PO SCH (08:17)
[2016-11-16] MEDS: ASPIRIN 325 MG TAB PO SCH (08:18)
[2016-11-16] MEDS: SODIUM CHLORIDE 0.9% FLUSH 10 ML FLUSH IV FLUSH SCH ×2 (08:18→21:00)
[2016-11-16] MEDS: METOPROLOL TARTRATE 25 MG TAB PO SCH ×2 (08:18→21:33)
[2016-11-16] MEDS: DILTIAZEM-CD 120 MG CAP ER PO SCH (08:19)
[2016-11-16] MEDS: DOCUSATE SODIUM 50 MG/SENNA 8.6 MG TAB PO SCH ×2 (08:19→21:32)
[2016-11-16] MEDS: HEPARIN SODIUM - SQ 10,000 UNITS/ML VIAL SQ SCH ×2 (08:19→21:38)
--- NOTE | 2016-11-16 12:41 | HHI.PR ---
Subjective Interval History Alert, oriented, no symptoms at rest, she gets dyspneic with minimal exertion, mild chest discomfort with exertion Review of Systems Constitutional Constitutional Remarks 10 systems reviewed and otherwise negative Vitals/Results Intake & Output 11/15/16 11/15/16 11/16/16 15:00 23:00 07:00 Intake Total 800 ml 300 ml Output Total 1300 ml 800 ml Balance -500 ml -500 ml Intake Oral 800 ml 300 ml IV Total 0 ml Output Urine Total 1300 ml 800 ml # Bowel Movements 1 0 Vital Signs Vital Signs Date Time Temp Pulse Resp B/P Pulse Ox O2 Delivery O2 Flow Rate FiO2 11/16/16 11:38 64 11/16/16 11:00 98.6 62 17 138/69 97 11/16/16 10:14 72 11/16/16 09:03 71 11/16/16 08:32 73 11/16/16 07:15 63 11/16/16 07:00 98.5 73 17 133/66 96 11/16/16 06:00 64 11/16/16 05:12 97.9 64 16 153/95 98 11/16/16 05:00 62 11/16/16 04:00 64 11/16/16 03:00 65 11/16/16 02:00 64 11/16/16 01:00 62 11/16/16 00:00 64 11/15/16 23:58 64 16 141/73 97 11/15/16 23:00 63 11/15/16 22:00 74 11/15/16 21:00 68 11/15/16 20:00 66 11/15/16 19:25 98.0 70 16 139/77 98 11/15/16 19:00 72 11/15/16 18:12 69 11/15/16 17:20 72 11/15/16 16:45 68 11/15/16 15:07 65 11/15/16 15:00 97.8 70 17 117/72 98 11/15/16 14:33 65 11/15/16 13:20 69 CBC/BMP: 11/14/16 0312 11/14/16 0312 Physical Exam General General Appearance: Well Developed, Comfortable Eyes Eye Exam: Pupils Reactive Ears & Nose Ears & Nose Exam: Nasal Mucosa [place] Throat Throat Exam: Oral Mucosa [place] & Moist Neck Neck Exam: Trachea Midline Pulmonary Resp Exam: Breath Sounds Equal, No Distress Cardiology CV Exam: Irregular Gastrointestinal/Abdomen GI Exam: Soft, Non-Tender, Bowel Sounds Present Musculoskeletal MS Exam: Joints Intact, Normal Gait, Normal Tone, Good Strength Integumentary Skin Exam: Warm, Dry Extremeties Extremities Exam: No Edema Neurologic Neuro Exam: Alert, Awake, Oriented, Speech Clear, Moving All Extremities, Art Objects Repairer Equal, No Focal Deficits VTE Prophylaxis VTE Prophylaxis Meds: Heparin Assessment/Plan Assessment/Plan ASSESSMENT: Chest pain on admission, no evidence of [place], Acute coronary syndrome Diabetes mellitus Atrial fibrillation Aortic aneurysm Hyperlipidemia Hypertension History of factor V Leiden with pulmonary embolism, on Eliquis , this is now on hold Anxiety Acid reflux Management Pain control Nitroglycerin as needed Eliquis on hold Heparin 5000 units subcutaneous twice a day, hold after midnight 11/18/16 Continue other home medications except for diabetes medications Accu-Cheks before meals and at bedtime with sliding scale Other catheterization on 11/17/[address] Metcalf following Discussed with nurse Discussed with patient 35 minutes Lisa Fuentes MD Nov 16, 2016 12:41
--- NOTE | 2016-11-16 16:43 | HHI.PR ---
Review of Systems Constitutional Constitutional Remarks 10 systems reviewed and otherwise negative Vitals/Results Intake & Output 11/15/16 11/15/16 11/16/16 14:59 22:59 06:59 Intake Total 800 ml 300 ml Output Total 1300 ml 800 ml Balance -500 ml -500 ml Intake Oral 800 ml 300 ml IV Total 0 ml Output Urine Total 1300 ml 800 ml # Bowel Movements 1 0 Vital Signs Vital Signs Date Time Temp Pulse Resp B/P Pulse Ox O2 Delivery O2 Flow Rate FiO2 11/16/16 16:04 64 11/16/16 15:21 64 11/16/16 14:13 64 11/16/16 13:20 64 11/16/16 12:56 70 11/16/16 11:38 64 11/16/16 11:00 98.6 62 17 138/69 97 11/16/16 10:14 72 11/16/16 09:03 71 11/16/16 08:32 73 11/16/16 07:15 63 11/16/16 07:00 98.5 73 17 133/66 96 11/16/16 06:00 64 11/16/16 05:12 97.9 64 16 153/95 98 11/16/16 05:00 62 11/16/16 04:00 64 11/16/16 03:00 65 11/16/16 02:00 64 11/16/16 01:00 62 11/16/16 00:00 64 11/15/16 23:58 64 16 141/73 97 11/15/16 23:00 63 11/15/16 22:00 74 11/15/16 21:00 68 11/15/16 20:00 66 11/15/16 19:25 98.0 70 16 139/77 98 11/15/16 19:00 72 11/15/16 18:12 69 11/15/16 17:20 72 11/15/16 16:45 68 CBC/BMP: 11/14/16 0312 11/14/16 031 Physical Exam General General Appearance: Well Developed, Comfortable Eyes Eye Exam: Pupils Reactive Ears & Nose Ears & Nose Exam: Nasal Mucosa [place] Throat Throat Exam: Oral Mucosa [place] & Moist Neck Neck Exam: Trachea Midline Pulmonary Resp Exam: Breath Sounds Equal, No Distress Cardiology CV Exam: Irregular Gastrointestinal/Abdomen GI Exam: Soft, Non-Tender, Bowel Sounds Present Musculoskeletal MS Exam: Joints Intact, Normal Gait, Normal Tone, Good Strength Integumentary Skin Exam: Warm, Dry Extremeties Extremities Exam: No Edema Neurologic Neuro Exam: Alert, Awake, Oriented, Speech Clear, Moving All Extremities, Raise Drill Operator Equal, No Focal Deficits VTE Prophylaxis VTE Prophylaxis Meds: Heparin Assessment/Plan Assessment/Plan ASSESSMENT: Chest pain on admission, no evidence of [place], Acute coronary syndrome Diabetes mellitus Atrial fibrillation Aortic aneurysm Hyperlipidemia Hypertension History of factor V Leiden with pulmonary embolism, on Eliquis , this is now on hold Anxiety Acid reflux Management Pain control Nitroglycerin as needed Eliquis on hold Heparin 5000 units subcutaneous twice a day, hold after midnight 11/18/16 Continue other home medications except for diabetes medications Accu-Cheks before meals and at bedtime with sliding scale Other catheterization on 11/17/[address] Metcalf following Discussed with nurse Discussed with patient 35 minutes Lisa Fuentes MD Nov 16, 2016 16:43
[2016-11-16] MEDS: ACETAMINOPHEN/HYDROcodone 325 MG/5 MG TAB PO PRN (21:33)
[2016-11-16] MEDS: DIAZEPAM 5 MG TAB PO PRN (23:31)
[2016-11-17] VITALS (19 sets, daily range): BP systolic 116–161; BP diastolic 59–77; PULSE 52–70; RESP 16–17; TEMP 97.4–98.3; O2SAT 96–98
[2016-11-17] MEDS: INSULIN ASPART SUPPLEMENTAL SCALE SQ SCH ×3 (07:00→16:00)
[2016-11-17] MEDS: METOPROLOL TARTRATE 25 MG TAB PO SCH (08:54)
[2016-11-17] MEDS: DIGOXIN 0.25 MG TAB PO SCH (08:54)
[2016-11-17] MEDS: DILTIAZEM-CD 120 MG CAP ER PO SCH (08:54)
[2016-11-17] MEDS: ASPIRIN 325 MG TAB PO SCH (08:54)
[2016-11-17] MEDS: amLODIPine BESYLATE 5 MG TAB PO SCH (08:55)
[2016-11-17] MEDS: DOCUSATE SODIUM 50 MG/SENNA 8.6 MG TAB PO SCH (08:55)
[2016-11-17] MEDS ORDERED: SODIUM CHLOR 0.9% 1000 ML INJ 1,000 ML IV SCH (08:56)
[2016-11-17] MEDS: SODIUM CHLORIDE 0.9% FLUSH 10 ML FLUSH IV FLUSH SCH (08:56)
[2016-11-17] MEDS ORDERED: ASPIRIN 325 MG TAB PO SCH (09:00)
[2016-11-17] MEDS: DIAZEPAM 5 MG TAB PO SCH ×3 (10:06→17:13)
[2016-11-17] MEDS ORDERED: HEPARIN-NS/PF INJ 500 ML ONE (12:30)
[2016-11-17] MEDS ORDERED: MIDAZOLAM HCL 2 MG/2 ML VIAL ONE ×2 (12:30→13:37)
[2016-11-17] MEDS ORDERED: IOHEXOL 350 MG/ML 100 ML BTL (for Cath Lab) OTHER ONE (12:46)
--- NOTE | 2016-11-17 14:16 | CATHPROC ---
[facility] [employer] [facility] HIS Report Study Information Study Number Admission Scheduled Start Study Start [id number] Nov 13 2016 10:20PM 11/17/2016 Nov 17 2016 11:59AM [place] [facility] Cardiac Catheterization Admit Source Facility Department Other [facility] - [facility] Extension Agent Physician and Clinical Staff Initial Kain Tony Lead Vulcanizing Operator Kelly Baker RN Lead Vulcanizing Operator Dane GALLAGHER, Dorian Recorder Nathaniel Willis RCIS(BS) Scrub Antwon Lombardi RCIS(BS) Procedures Performed Procedure Location (Site) Vessel Name Angiogram LV LV Ventricle Coronary Angiograms LCA Left Coronary Coronary Angiograms RCA Right Coronary Coronary Angiograms INGRAM Graft Left Coronary L Heart Cath Equipment Time Shipping Room Supervisor Description Size Mfg Part Number Used/Scraped TRANSDUCER, [id number] 12:01 [employer] * Used W/STOCKCOCK *[id number]- INTRODUCER SET, 13:34 [employer] FR 5 SC-NT-U-SST Used MICROPUNCTURE, STIFFENED *[id number] [id number] *[id number] 538-460 *[id number] [id number] *[id number] [id number] *[id number] 538-453S *[id number] 12:01 [employer] INDUSTRIES PACK, CCL CUSTOM * Used *[id number] 12:01 [employer] PACER PEN, SKIN DUAL W/ RULER * Used *[id number] 12:01 ERN WIRE, 3MMJ .035 180CM 180CM Used *[id number] PROBE COVER, STERILE [id number] 12:01 [employer] * Used ULTRASOUND W/ GEL *[id number] 12:01 NAMIC MANIFOLD, 4 PORT * Used *[id number] 12:01 [employer]ED OMNIPAQUE, 350 MG, 150ML 150ML [id number] Used [id number] 12:01 [employer] MEDICAL BLANKET,WARM AIR CCL * Used *[id number] 12:01 [employer] MEDICAL SHEATH, FR4 TERUMO (10CM) FR 4 Used *[id number] History: Current Medications Medication Dosage/Unit Route Frequency Last Date/Time Taken Beta [place] ELIQUIS History: Allergies Allergy Reaction Macrobid Penicillin Sulfa History: Risk Factors Family History of Hypertension Dyslipidemia Previous IA Previous Heart Failure Premature CAD Yes Yes No Yes No Prior Valve Prior PCI Prior PCIDate Prior CABG Prior CABGDate Surgery No Yes 11/14/2014 Yes 04/06/2014 Cerebrovascular Peripheral Artery Chronic Lung On Dialysis Diabetes Diabetes Therapy Disease Disease Disease No Yes No No Yes Oral History: Stress Tests Stress or Imaging Studies Performed No History: Other Current Smoker No Labs Hgb (g/dl) Hct (%) WBC (l/cumm) Platelets (thousands) 11.60-17.00 35.00-51.00 4.00-11.00 150.00-450.00 11.9 35.7 8.2 235 Glucose (mg/dl) BUN (mg/dl) Creatinine (mg/dl) BUN:Creatinine (1:x) 74.00-106.00 7.00-18.00 0.50-1.30 10.00-20.00 119 23 0.9 25.6 Na (meq/l) K (meq/l) 136.00-145.00 3.50-5.10 140 4.2 INR (PTT:PT) 0.90-1.10 0.9 Troponin I (ng/ml) CPK-MB (ng/ML) 0.02-0.05 0.50-3.60 0.02 Not Drawn Medication Medication Total Dose (Bolus/Oral) Medication Total Dosage/Unit 1% XYLOCAINE 20 mL FENTANYL 100 mcg VERSED 3 mg Medications (Bolus/Oral) Medication Time Given Dosage/Unit Administered By Reason FENTANYL 11/17/2016 1:30:00 PM 50 mcg Dorian Vela RN 50 mcg FENTANYL given in lab by Dorian Vela RN in Left Antecubital via Peripheral IV. Ordered by Kain Brown. 1% XYLOCAINE 11/17/2016 1:30:56 PM 20 mL Kain Metcalf 20 mL 1% XYLOCAINE given in lab by Kain Metcalf in Right Groin via Subcutaneous. Ordered by Kain Curtis. VERSED 11/17/2016 1:31:00 PM 1 mg Dorian Vela RN 1 mg VERSED given in lab by Dorian Vela RN in Left Antecubital via Peripheral IV. Ordered by Kain Metcalf. VERSED 11/17/2016 1:36:00 PM 1 mg Dorian Vela RN 1 mg VERSED given in lab by Dorian Vela RN in Left Antecubital via Peripheral IV. Ordered by Kain Metcalf. VERSED 11/17/2016 1:38:00 PM 1 mg Dorian Vela RN 1 mg VERSED given in lab by Dorian Vela RN in Left Antecubital via Peripheral IV. Ordered by Kain Metcalf. FENTANYL 11/17/2016 1:45:00 PM 50 mcg Dorian Vela RN 50 mcg FENTANYL given in lab by Dorian Vela RN in Left Antecubital via Peripheral IV. Ordered by Kain Brown. Medication (Drip) Medication Time Given Dosage/Unit Concentration/Unit Diluent (ml) Solution IV Solutions 11/17/2016 12:46:57 PM 0 mL (IV) 500 NaCl .9 Patient arrived on IV Solutions in Left Antecubital via Peripheral IV. Pump/Drip Flow = 20 ml/hr usin g NaCl .9. Ordered by Kain Metcalf. Initial Case Assessment Cardiovascular HR Rhythm NIBP Chest Pain 65 SR 162/69 0 Edema Present Skin color Skin None Normal Warm Dry Circulatory - Right Pulses Dorsalis Pedis Femoral 2 2 Scale (0,1,2,3,4,d) Circulatory - Left Pulses Dorsalis Pedis Femoral 2 2 Scale (0,1,2,3,4,d) Circulatory - Lower Extremities Color Lower Right Color Lower Left Normal Normal Neurological State Oriented to time-place- Alert Moves all extremities person Respiration - General Respiration Rate SpO2 (%) (B/min) 15 97 Final Case Assessment Cardiovascular HR Rhythm NIBP Chest Pain 65 SR 162/69 0 Edema Present Skin color Skin None Normal Warm Dry Circulatory - Right Pulses Dorsalis Pedis Femoral 2 2 Scale (0,1,2,3,4,d) Circulatory - Left Pulses Dorsalis Pedis Femoral 2 2 Scale (0,1,2,3,4,d) Circulatory - Lower Extremities Color Lower Right Color Lower Left Normal Normal Neurological State Oriented to time-place- Alert Moves all extremities person Respiration - General Respiration Rate SpO2 (%) (B/min) 15 97 Chronological Log Time Study Chronological Log 12:46:41 Patient arrived via Bed. 12:46:42 Patient Name, D.O.B, / Armband Verified By R.N. 12:46:43 Consent signed by the physician and the patient and verified by the County Extension Agent staff. 12:46:44 Pre-op and post- op instructions given; patient acknowledges understanding of instructions. 12:46:48 Patient has been NPO for Less than 6Hrs. 12:46:49 Skin Breakdown- 12:46:53 Patient Warmer Placed on the Table. 12:46:55 IV Warmer Connected To Patient. 12:46:56 A # 20 IV was noted in the Antecubital (left). Grade = 0 Patient arrived on IV Solutions in Left Antecubital via Peripheral IV. Pump/Drip Flow = 20 ml/h r using NaCl .9. Ordered 12:46:57 by Kain Metcalf. Vitals capture started with the following parameters, Patient=Adult, Interval=5 min, Initial Pr zuejsy=036 mmHg, 12:51:20 Deflation Rate=5 mmHg, Cuff placed on Right Arm 12:52:41 HR=89 bpm, KOES=872/69 mmhg, SpO2=98.0 %, Resp=15 B/min, Pain=0, Flako=10, Cohen=2 12:55:42 History and physical on the chart or being dictated. Assessment: Initial Case, HR=65 BPM, Rhythm=SR, VTID=933/69 mmhg, Chest Pain=0, Edema=None, Col or=Normal, Skin = Warm, Dry Right Pulses: Billy Ped=2, Femoral=2 Left Pulses: Billy Ped=2, Femoral=2 12:55:47 Lower Right Extremities: Color=Normal Lower Left Extremities: Color=Normal Neurological: State=Alert, Ox3, ESTRADA Respiration: Resp=15 B/min, SpO2=97 % 12:57:10 HR=64 bpm, AVGG=449/67 mmhg, SpO2=99.0 %, Resp=14 B/min, Pain=0, Flako=10, Cohen=2 13:00:37 Reference ECG taken 13:01:20 Bilateral groins prepped with 2% chlorhexidine, and with a 3 min. waiting time. 13:02:05 HR=64 bpm, KZAM=412/75 mmhg, SpO2=97.0 %, Resp=8 B/min, Pain=0, Flako=10, Cohen=2 13:02:41 paged 13:05:05 Pressure channel 1 zeroed. 13:07:04 HR=62 bpm, CIEK=545/71 mmhg, SpO2=97.0 %, Resp=13 B/min, Pain=0, Flako=10, Cohen=2 13:12:07 HR=67 bpm, CAOA=127/61 mmhg, SpO2=96.0 %, Resp=12 B/min, Pain=0, Flako=10, Cohen=2 13:16:40 MD responded 13:17:04 HR=63 bpm, ETBF=864/74 mmhg, SpO2=96.0 %, Resp=16 B/min, Pain=0, Flako=10, Cohen=2 13:22:07 HR=62 bpm, MSMZ=511/73 mmhg, SpO2=98.0 %, Resp=13 B/min 13:26:51 MD arrived. 13:27:06 HR=62 bpm, IXXV=698/76 mmhg, SpO2=97.0 %, Resp=11 B/min, Pain=0, Flako=10, Cohen=2 Time Out. Correct patient, correct procedure,correct physician, power injector loaded with cont rast with surgical team 13:29:50 present. Time Out Concurred by , individual staff in procedure 13:30:00 50 mcg FENTANYL given in lab by Dorian Vela RN in Left Antecubital via Peripheral IV. Orde red by Kain Metcalf. 13:30:21 Case Start 20 mL 1% XYLOCAINE given in lab by Kain Metcalf in Right Groin via Subcutaneous. Ordered by Tea 13:30:56 Kain. 13:31:00 1 mg VERSED given in lab by Dorian Vela RN in Left Antecubital via Peripheral IV. Ordered by Kain Metcalf. 13:32:09 HR=67 bpm, BIRR=072/72 mmhg, SpO2=94.0 %, Resp=6 B/min, Pain=0, Flako=10, Cohen=2 13:32:53 Access site was Right Femoral Artery. A INTRODUCER SET, MICROPUNCTURE, STIFFENED FR 5 was advanced into the Fem Art (right) using the 13:33:37 Percutaneous technique. A SHEATH, FR4 TERUMO (10CM) FR 4 was exchanged in the Fem Art (right). This was necessary in or charlette to 13:33:55 accomodate a larger catheter. A JL 4.0 INFINITI CATHETER FR 4 was advanced over a wire. OMNIPAQUE, 350 MG, 150ML 150ML was us ed for 13:34:03 injections. 13:36:00 1 mg VERSED given in lab by Dorian Vela RN in Left Antecubital via Peripheral IV. Ordered by Kain Metcalf. 13:37:12 HR=63 bpm, XKVX=742/72 mmhg, SpO2=95.0 %, Resp=15 B/min, Pain=0, Flako=10, Cohen=2 13:37:28 Catheter was removed A 3DRC INFINITI CATHETER FR 4 was advanced over a wire. OMNIPAQUE, 350 MG, 150ML 150ML was used for 13:37:36 injections. 13:38:00 1 mg VERSED given in lab by Dorian Vela RN in Left Antecubital via Peripheral IV. Ordered by Kain Metcalf. 13:39:00 The RCA was injected and visualized at various angles. OMNIPAQUE, 350 MG, 150ML 150ML used . 13:39:25 Catheter was removed A JL 5.0 INFINITI CATHETER FR 4 was advanced over a wire. OMNIPAQUE, 350 MG, 150ML 150ML was us ed for 13:39:40 injections. 13:40:00 The LCA was injected and visualized at various angles. OMNIPAQUE, 350 MG, 150ML 150ML used . 13:42:09 HR=67 bpm, HJSF=656/73 mmhg, SpO2=94.0 %, Resp=4 B/min, Pain=0, Flako=10, Cohen=2 Recorded Pressure: Ao, HR=66, Condition=Condition 1 13:42:17 (Aorta) Ao 138/64/94 13:45:00 50 mcg FENTANYL given in lab by Dorian Vela RN in Left Antecubital via Peripheral IV. Orde red by Kain Metcalf. 13:47:10 HR=68 bpm, KBST=976/69 mmhg, SpO2=90.0 %, Resp=13 B/min, Pain=0, Flako=10, Cohen=2 13:47:16 Catheter was removed 13:47:18 A IM INFINITI CATHETER FR 4 was advanced over a wire. OMNIPAQUE, 350 MG, 150ML 150ML was us ed for injections. 13:48:44 The INGRAM Graft was injected and visualized at various angles. OMNIPAQUE, 350 MG, 150ML 150M L used. 13:49:33 Catheter was removed A PIGTAIL ANG. INFINITI CATHETER FR 4 was advanced over a wire. OMNIPAQUE, 350 MG, 150ML 150ML was used 13:51:23 for injections. 13:52:11 HR=61 bpm, RKZP=050/67 mmhg, SpO2=94.0 %, Resp=16 B/min, Pain=0, Flako=10, Cohen=2 Recorded Pressure: LV, HR=65, Condition=Condition 1 13:52:51 (Left Ventricle) LV 136/7/13 13:53:14 The LV was injected at 10 cc/sec for a total of 20. OMNIPAQUE, 350 MG, 150ML 150ML used. Recorded Pressure: LV, Ao, HR=66, Condition=Condition 1 13:54:48 (Left Ventricle) LV 130/6/13, (Aorta) Ao 132/56/87 13:54:59 Catheter was removed 13:55:06 Case End Assessment: Final Case, HR=65 BPM, Rhythm=SR, CRSX=232/69 mmhg, Chest Pain=0, Edema=None, Color =Normal, Skin = Warm, Dry Right Pulses: Billy Ped=2, Femoral=2 Left Pulses: Billy Ped=2, Femoral=2 13:55:21 Lower Right Extremities: Color=Normal Lower Left Extremities: Color=Normal Neurological: State=Alert, Ox3, ESTRADA Respiration: Resp=15 B/min, SpO2=97 % 13:55:36 Sheath(s) left in place, will be removed in Holding Area 13:55:40 Sterile dressing applied to site 13:55:41 No case complications noted. 13:55:43 Cine recording checked. 13:55:45 Bedside Report will be given. 13:55:48 Contrast Scanned 13:55:51 A Left Heart Cath was performed. 13:57:12 HR=63 bpm, VGLX=813/64 mmhg, SpO2=94.0 %, Resp=28 B/min, Pain=0, Flako=10, Cohen=2 14:00:45 Patient moved to stretcher End Study - Contrast Media Used In Study Contrast Total Opened (mL) Total Used (mL) Total Wasted (mL) Omnipaque 60 60 0 End Study - Maximum Contrast Load Max Contrast Load (mL) 441.7 End Study - Radiation Exposure Fluoro Time (minutes) 3.9 End Study - Patient Disposition Complications Transferred To No Telemetry Bed
[2016-11-17] MEDS ORDERED: CLON.1 PO (19:23)
--- NOTE | 2016-11-17 19:56 | HHI.PR ---
Subjective Interval History Alert, oriented, denies complaints at this time, had a cardiac catheterization earlier today, unremarkable according to watch train assembler Dr. Metcalf Review of Systems Constitutional Constitutional Remarks 10 systems reviewed and otherwise negative Vitals/Results Intake & Output 11/16/16 11/16/16 11/17/16 15:00 23:00 07:00 Intake Total 420 ml 400 ml Output Total 1000 ml 800 ml Balance -580 ml -400 ml Intake Oral 420 ml 400 ml IV Total 0 ml Output Urine Total 1000 ml 800 ml # Bowel Movements 1 0 Vital Signs Vital Signs Date Time Temp Pulse Resp B/P Pulse Ox O2 Delivery O2 Flow Rate FiO2 11/17/16 18:00 64 11/17/16 17:00 65 11/17/16 16:00 63 11/17/16 15:00 57 11/17/16 15:00 98.3 58 17 138/60 97 11/17/16 12:00 64 11/17/16 11:33 97.4 58 17 136/71 98 11/17/16 11:00 59 11/17/16 10:00 66 11/17/16 09:00 66 11/17/16 08:00 62 11/17/16 07:00 60 11/17/16 07:00 97.8 70 17 161/77 96 11/17/16 06:00 58 11/17/16 05:13 60 16 116/59 98 11/17/16 05:00 58 11/17/16 04:00 52 11/17/16 03:00 57 11/17/16 02:00 52 11/17/16 01:00 54 11/17/16 00:00 60 11/16/16 23:46 63 18 130/64 95 11/16/16 23:00 63 11/16/16 22:00 68 11/16/16 21:00 66 11/16/16 20:00 64 CBC/BMP: 11/14/16 0312 11/14/16 0312 Physical Exam General General Appearance: Well Developed, Comfortable Eyes Eye Exam: Pupils Reactive Ears & Nose Ears & Nose Exam: Nasal Mucosa [place] Throat Throat Exam: Oral Mucosa [place] & Moist Neck Neck Exam: Trachea Midline Pulmonary Resp Exam: Breath Sounds Equal, No Distress Cardiology CV Exam: Irregular Gastrointestinal/Abdomen GI Exam: Soft, Non-Tender, Bowel Sounds Present Musculoskeletal MS Exam: Joints Intact, Normal Gait, Normal Tone, Good Strength Integumentary Skin Exam: Warm, Dry Extremeties Extremities Exam: No Edema Neurologic Neuro Exam: Alert, Awake, Oriented, Speech Clear, Moving All Extremities, Real Estate Broker Associate Equal, No Focal Deficits VTE Prophylaxis VTE Prophylaxis Meds: Heparin Assessment/Plan Assessment/Plan ASSESSMENT: Chest pain on admission, no evidence of [place], Cardiac catheterization done on 11/17/16, No evidence of PE Pain might be related to uncontrolled hypertension Diabetes mellitus Atrial fibrillation Aortic aneurysm Hyperlipidemia Hypertension History of factor V Leiden with pulmonary embolism, on Eliquis , this is now on hold Anxiety Acid reflux Management Discharge home today Follow-up with cardiology in 1-2 days Pain control Nitroglycerin as needed Eliquis to be resumed Discussed with watch train assembler Dr. Metcalf Discussed with nurse Discussed with patient 45 minutes Lisa Fuentes MD Nov 17, 2016 19:56
--- NOTE | 2016-11-18 20:23 | MA ---
cc: KAIN METCALF M.D. DATE 11/17/2016 INDICATION Unstable angina. CONSENT Full informed consent was obtained prior to the procedure. Risks of , bleeding, myocardial infarction, perforation, aspiration, foreseen and unforeseen were reviewed. The patient fully appeared to understand and accept the risks. PROCEDURE DETAILS The patient was prepped and draped in the usual sterile manner. The right femoral artery was entered using a micropuncture technique. Via the 4-[place] sheath left and right coronary catheters were used to intubate left and right coronaries. Pigtail catheter was used to intubate the left ventricle. Multiple angiographic views were carried out. At the end of the catheterization procedure all catheters and sheaths were removed. Manual pressure applied with good hemostasis achieved. The patient returned to her room in stable condition. The left internal mammary artery was entered using a INGRAM catheter. PROCEDURES 1. Left heart catheterization. 2. Bilateral coronaries. 3. Left internal mammary artery injection. 4. LV gram. 5. Sedation. FINDINGS I. HEMODYNAMICS: Aortic pressure was 132/56 with a mean of 87. The left ventricular pressure was 130 with a left ventricular end-diastolic pressure of 30. There was no evidence of significant gradient on pullback across the LV outflow tract and aortic valve. II. LEFT VENTRICULOGRAM: The overall left ventricular ejection fraction was 60%. There was no evidence of significant mitral regurgitation or mural thrombus. III. CORONARY ARTERIES: The left main is large and free of significant disease. There is evidence of previously placed stents in the LAD. Just distal to these stents there is evidence of a high grade LAD stenosis of approximately 60%. There is evidence of a previously placed internal mammary artery ___. There is a bifurcating diagonal branch that comes off the LAD that supplies blood to the territory of an intermediate ramus. There is a medium size circumflex with small first and second obtuse marginal branches. The left internal mammary was patent with excellent to the LAD. Left ventricle function shows normal left ventricular ejection fraction estimated at 60%. Right coronary. This is widely patent with evidence of a previously placed stent in the mid section which is widely patent. CONCLUSION Patent stent. Patent INGRAM to the LAD. PLAN Medical management. Kain Metcalf MD, FRCP,[facility] HAJ/KK /2:14 PM /7:51 PM
== END 2016-11-17 20:40 | disposition home or self-care (01) | DRG 287 ==
LOC: NEPC 17:53 → NEDA 22:20 → HCIN 23:08
PROVIDERS: ADMIT Specialist; ATTEND Specialist
PROC: B2111ZZ Fluoroscopy of Multiple Coronary Arteries using Low Osmolar Contrast (ICD-10-PCS; 2016-11-17)
PROC: B2151ZZ Fluoroscopy of Left Heart using Low Osmolar Contrast (ICD-10-PCS; 2016-11-17)
PROC: B2181ZZ Fluoroscopy of Left Internal Mammary Bypass Graft using Low Osmolar Contrast (ICD-10-PCS; 2016-11-17)
PROC: 4A023N7 Measurement of Cardiac Sampling and Pressure, Left Heart, Percutaneous Approach (ICD-10-PCS; principal; 2016-11-17 13:45)
DX: R07.9 Chest pain, unspecified (principal); D68.51 Activated protein C resistance; I24.9 Acute ischemic heart disease, unspecified; I48.92 Unspecified atrial flutter; I25.110 Atherosclerotic heart disease of native coronary artery with unstable angina pectoris; D69.6 Thrombocytopenia, unspecified; I48.91 Unspecified atrial fibrillation; E11.9 Type 2 diabetes mellitus without complications; E78.5 Hyperlipidemia, unspecified; I10 Essential (primary) hypertension; I25.2 Old myocardial infarction; F41.0 Panic disorder [episodic paroxysmal anxiety]; I71.9 Aortic aneurysm of unspecified site, without rupture; K21.9 Gastro-esophageal reflux disease without esophagitis; M79.7 Fibromyalgia; Z86.711 Personal history of pulmonary embolism; Z86.73 Personal history of transient ischemic attack (TIA), and cerebral infarction without residual deficits; Z90.710 Acquired absence of both cervix and uterus; Z95.1 Presence of aortocoronary bypass graft; Z95.5 Presence of coronary angioplasty implant and graft; Z96.653 Presence of artificial knee joint, bilateral; M19.90 Unspecified osteoarthritis, unspecified site; K44.9 Diaphragmatic hernia without obstruction or gangrene; G47.00 Insomnia, unspecified; R53.83 Other fatigue
CPT/HCPCS: 71010; 71275; 76937; 80048; 80053; 80162; 82550; 82948; 83690; 83735; 83880; 84484; 85025; 85379; 85610; 85730; 93005; 93458; 96365; 96366; C1769; C1893; J1644; J1815; J2250; J3010; J7030; Q9967

== ENCOUNTER 2017-05-25 12:21 | Observation (INO) | payer MEDICARE, BC ==
[~2017-05-25] VITALS: Ht 157.5 cm; Wt 77.3 kg
[~2017-05-25 12:21] MED LIST changes: +AMLO2.5T PO; +CLON.1 PO; -METF500T4 PO
[2017-05-25 12:25] VITALS: BP 190/90; PULSE 73; RESP 16; TEMP 98.2; O2SAT 98
[2017-05-25 13:15] LABS: AUTOMATED NEUTROPHIL # 5.5 TH/MM3 (1.8-7.7); BASOPHIL % 0.5 % (0.0-2.0); EOSINOPHIL # 0.1 TH/MM3 (0-0.4); EOSINOPHIL % 1.4 % (0.0-4.0); HEMATOCRIT 36.7 % (35.0-46.0); HEMOGLOBIN 12.1 GM/DL (11.6-15.3); LYMPH % 28.7 % (9.0-44.0); LYMPHOCYTE # 2.5 TH/MM3 (1.0-4.8); MEAN CELL VOLUME 85.7 FL (80.0-100.0); MEAN CORPUSCULAR HEMOGLOBIN 28.2 PG (27.0-34.0); MEAN CORPUSCULAR HGB CONC 32.9 % (32.0-36.0); MEAN PLATELET VOLUME 7.1 FL (7.0-11.0); MONO % 7.6 % (0.0-8.0); MONOCYTE # 0.7 TH/MM3 (0-0.9); NEUT % 61.8 % (16.0-70.0); PLATELET COUNT 298 TH/MM3 (150-450); RED BLOOD COUNT 4.28 MIL/MM3 (4.00-5.30); RED CELL DISTRIBUTION WIDTH 16.4 % (11.6-17.2); WHITE BLOOD COUNT 8.8 TH/MM3 (4.0-11.0)
--- NOTE | 2017-05-25 13:20 | RADRPT ---
EXAM DATE/TIME: 05/25/2017 12:57 [place] COMPARISON: CT PULMONARY ANGIOGRAM, November 14, 2016, 14:31. INDICATIONS : Chest pain post heart ablation 4 days ago. MEDICAL HISTORY : Hypertension. Myocardial infarction. Afib. Diabetes. SURGICAL HISTORY : Appendectomy. CABG. Cholecystectomy. Coronary stent. Cardiac cath. ENCOUNTER: Initial ACUITY: 4 - 6 days PAIN SCORE: 7/10 LOCATION: Bilateral chest FINDINGS: PA and lateral view of the chest demonstrates the lungs to be clear without focal infiltrates. Stabl e elevation of the right hemidiaphragm. Oval retrocardiac density appears larger than on prior CT pu lmonary angiogram suggesting an enlarging hiatus hernia. Evidence of prior median sternotomy. Coron flynn artery stent. Heart is stable in configuration. Healed fracture right clavicle. The CONCLUSION: 1. No infiltrate seen. No evidence of pleural effusion. 2. Increasing retrocardiac density suggesting enlargement in size of hiatus hernia. Matthieu Mcmanus MD on May 25, 2017 at 13:16 Board Certified Radiologist. This report was verified electronically.
[2017-05-25 13:24] LABS: PROTHROMBIN TIME - PATIENT 10.6 SEC (9.8-11.6)
[2017-05-25 13:30] LABS: BICARBONATE 29.3 MEQ/L (21.0-32.0); CALCIUM 9.2 MG/DL (8.5-10.1); CREATININE 0.95 MG/DL (0.50-1.00); MAGNESIUM 1.9 MG/DL (1.5-2.5)
[2017-05-25 13:34] LABS: TROPONIN I 0.07 NG/ML (0.02-0.05)
--- NOTE | 2017-05-25 13:46 | PD ---
HPI Chief Complaint: Cardiac Complaint Time Seen by Provider: 13:45 Travel History International Travel<30 days: No Contact w/Intl Traveler<30days: No Traveled to known affect area: No History of Present Illness HPI 82-year-old female with history of atrial fibrillation status post ablation come to the emergency department complaining of shortness of breath, orthopnea, and chest tightness that started approximately 3 days ago. Since she has had increased difficulty breathing that worsened last night decided to come in today. Patient states that she is on Eliquis does not take aspirin. Says that she did call her tile mechanic helper and they advised her to go to the emergency department for evaluation. Patient states his chest tightness is nonradiating and is mild in nature. Denies leg swelling. patient does have a history of CAD , diabetes mellitus, hypertension. Denies history of congestive heart failure. States compliance with medication. PFSH Past Medical History Hx Anticoagulant Therapy: Yes Arthritis: Yes Asthma: No Atrial Fibrillation: Yes Blood Disorders: No Anxiety: Yes (Panic attacts ) Depression: No Heart Rhythm Problems: Yes (A-FIB) Cancer: No Cardiac Catheterization: Yes Cardiovascular Problems: Yes High Cholesterol: No Chemotherapy: No Chest Pain: Yes Congestive Heart Failure: No COPD: No Cerebrovascular Accident: Yes Diabetes: Yes Diminished Hearing: No Endocrine: No Gastrointestinal Disorders: Yes (reflux, hital hernia) GERD: Yes Genitourinary: No Headaches: No Hiatal Hernia: No Hypertension: Yes Immune Disorder: Yes (Chronic fatigue) Implanted Vascular Access Dvce: Yes Insomnia: Yes Kidney Stones: No Musculoskeletal: Yes (fibromyalgia) Neurologic: No Psychiatric: No Reproductive: No Respiratory: Yes Immunizations Current: Yes Migraines: No Myocardial Infarction: Yes (2003) Radiation Therapy: No Renal Failure: No Seizures: No Sleep Apnea: No Thyroid Disease: No Ulcer: No Menopausal: Yes : 2 Para: 2 Miscarriage: 0 : 0 Past Surgical History AICD: No Appendectomy: Yes Arteriovenous Shunt: No Body Medical Devices: Knee replacements Cholecystectomy: Yes Coronary Artery Bypass Graft: Yes Coronary Stent: Yes Ear Surgery: No Endocrine Surgery: No Eye Surgery: Yes (cataract surgery 2013) Genitourinary Surgery: No Hysterectomy: Yes Insulin Pump: No Joint Replacement: Yes (bilat knees) Neurologic Surgery: No Oral Surgery: No Pacemaker: No Thoracic Surgery: No Tonsillectomy: Yes Other Surgery: Yes (OK, appendix, gallbladder, both Knees replaced) Social History Alcohol Use: No Tobacco Use: No Substance Use: No Allergies-Medications (Allergen,Severity, Reaction): Coded Allergies: Sulfa (Sulfonamide Antibiotics) (Unverified Allergy, Severe, 05/25/17) nitrofurantoin (Unverified Allergy, Severe, 05/25/17) penicillin G (Unverified Allergy, Unknown, 05/25/17) Reported Meds & Prescriptions Reported Meds & Active Scripts Active Reported Diltiazem CD 24 HR 240 Mg Caper 240 Mg PO DAILY Metoprolol Succinate ER 24 HR (Metoprolol Succinate) 50 Mg Tab 50 Mg PO DAILY Omeprazole 20 Mg Tab 20 Mg PO DAILY Lisinopril 2.5 Mg Tab 2.5 Mg PO DAILY Rosuvastatin (Rosuvastatin Calcium) 5 Mg Tab 5 Mg PO DAILY Metformin (Metformin HCl) 500 Mg Tab 500 Mg PO BIDPC Diazepam 2 Mg Tab 0.5 Mg PO BID PRN Cephalexin 250 Mg Tab 250 Mg PO Q6H Digitek (Digoxin) 0.25 Mg Tab 0.125 Mg PO EVERY OTHER DAY Eliquis (Apixaban) 5 Mg Tab 5 Mg PO BID Hydrocodone-Acetaminophen 5-325 mg Tab 1 Tab PO BID PRN Januvia (Sitagliptin Phosphate) 100 Mg Tab 100 Mg PO DAILY Digitek (Digoxin) 0.25 Mg Tab 0.25 Mg PO EVERY OTHER DAY Review of Systems Except as stated in HPI: all other systems reviewed are Neg Physical Exam Narrative GENERAL: Well developed, well-nourished, with mild Shortness of breath SKIN: Focused skin assessment warm/dry. HEAD: Atraumatic. Normocephalic. EYES: Pupils equal and round. No scleral icterus. No injection or drainage. ENT: No nasal bleeding or discharge. Mucous membranes pink and moist. NECK: Trachea midline. No JVD. CARDIOVASCULAR: Regular rate and rhythm. No murmur appreciated. RESPIRATORY: No accessory muscle use. Clear to auscultation. Breath sounds equal bilaterally. GASTROINTESTINAL: Abdomen soft, non-tender, nondistended. no CVA tenderness MUSCULOSKELETAL: No obvious deformities. No clubbing. No cyanosis. No pedal edema NEUROLOGICAL: Awake and alert. No obvious cranial nerve deficits. Motor grossly within normal limits. Normal speech. PSYCHIATRIC: Appropriate mood and affect; insight and judgment normal. Data Data Last Documented VS Vital Signs Date Time Temp Pulse Resp B/P (MAP) Pulse Ox O2 Delivery O2 Flow Rate FiO2 05/25/17 15:15 71 16 155/75 (101) 98 05/25/17 13:59 Room Air 05/25/17 12:25 98.2 Orders Orders Electrocardiogram (05/25/17 12:28) Basic Metabolic Panel (Bmp) (05/25/17 12:28) Ckmb (Isoenzyme) Profile (05/25/17 12:28) Complete Blood Count With Diff (05/25/17 12:28) Magnesium (Mg) (05/25/17 12:28) Prothrombin Time / Inr (Pt) (05/25/17 12:28) Act Partial Throm Time (Ptt) (05/25/17 12:28) Troponin I (05/25/17 12:28) Chest, Pa & Lat (05/25/17 12:28) Furosemide Inj (Lasix Inj) (05/25/17 14:15) Cta Thor Abd Aorta W Iv C W3d (05/25/17 ) Iohexol 350 Inj (Omnipaque 350 Inj) (05/25/17 15:00) Admit Order (Ed Use Only) (05/25/17 15:50) Place In Observation (05/25/17 ) Vital Signs (Adult) Q4H (05/25/17 15:51) Activity Oob With Assistance (05/25/17 15:51) Specialty Transformer Assembler / Telemetry .CONTINUOUS (05/25/17 15:51) Intake + Output RAMON.QSHIFT (05/25/17 15:51) Sodium Chloride 0.9% Flush (Ns Flush) (05/25/17 16:00) Sodium Chloride 0.9% Flush (Ns Flush) (05/25/17 21:00) Basic Metabolic Panel (Bmp) (05/26/17 06:00) Complete Blood Count With Diff (05/26/17 06:00) Electrocardiogram (05/25/17 19:00) Electrocardiogram (05/26/17 01:00) Pt Request For Service (05/25/17 15:51) Case Management Consult (05/25/17 15:51) Naloxone Inj (Narcan Inj) (05/25/17 16:00) Echo 2d Comp With Doppler (05/25/17 ) Labs Laboratory Tests Test 2/19/18 13:00 White Blood Count 8.8 TH/MM3 Red Blood Count 4.28 MIL/MM3 Hemoglobin 12.1 GM/DL Hematocrit 36.7 % Mean Corpuscular Volume 85.7 FL Mean Corpuscular Hemoglobin 28.2 PG Mean Corpuscular Hemoglobin Concent 32.9 % Red Cell Distribution Width 16.4 % Platelet Count 298 TH/MM3 Mean Platelet Volume 7.1 FL Neutrophils (%) (Auto) 61.8 % Lymphocytes (%) (Auto) 28.7 % Monocytes (%) (Auto) 7.6 % Eosinophils (%) (Auto) 1.4 % Basophils (%) (Auto) 0.5 % Neutrophils # (Auto) 5.5 TH/MM3 Lymphocytes # (Auto) 2.5 TH/MM3 Monocytes # (Auto) 0.7 TH/MM3 Eosinophils # (Auto) 0.1 TH/MM3 Basophils # (Auto) 0.0 TH/MM3 CBC Comment DIFF FINAL Differential Comment Prothrombin Time 10.6 SEC Prothromb Time International Ratio 1.0 RATIO Activated Partial Thromboplast Time 24.3 SEC Blood Urea Nitrogen 27 MG/DL Creatinine 0.95 MG/DL Random Glucose 131 MG/DL Calcium Level 9.2 MG/DL Magnesium Level 1.9 MG/DL Sodium Level 139 MEQ/L Potassium Level 4.4 MEQ/L Chloride Level 102 MEQ/L Carbon Dioxide Level 29.3 MEQ/L Anion Gap 8 MEQ/L Estimat Glomerular Filtration Rate 56 ML/MIN Total Creatine Kinase 35 U/L Troponin I 0.07 NG/ML B-Type Natriuretic Peptide 164 PG/ML [facility] Medical Decision Making Medical Screen Exam Complete: Yes Emergency Medical Condition: Yes Differential Diagnosis STEMI, NSTEMI, unstable angina, angina, CHF Narrative Course 82-year-old female with history of atrial fibrillation status post ablation come to the emergency department complaining of shortness of breath, orthopnea, and chest tightness that started approximately 3 days ago. Since she has had increased difficulty breathing that worsened last night decided to come in today. Patient states that she is on Eliquis does not take aspirin. Says that she did call her tile mechanic helper (Dr. Metcalf) and they advised her to go to the emergency department for evaluation. Patient states his chest tightness is nonradiating and is mild in nature. Denies leg swelling. patient does have a history of CAD, diabetes mellitus, hypertension. Denies history of congestive heart failure. States compliance with medication. EKG demonstrates sinus rhythm with T-wave inversions in aVL, V1, and V2. No STEMI changes. It appears that her troponin 0.07. This appears to be the first elevation of troponin seen here in the emergency department. Remaining labs unremarkable. Last Impressions Chest X-Ray 05/25/17 1228 Signed Impressions: Service Date/Time: Thursday, May 25, 2017 12:57 - CONCLUSION: 1. No infiltrate seen. No evidence of pleural effusion. 2. Increasing retrocardiac density suggesting enlargement in size of hiatus hernia. Matthieu Mcmanus MD While evaluating the patient, Dr. Raza was in the emergency department was able to see the patient prior to admission. He recommended echocardiogram, diuresis, and admit. He suspect that the patient received slightly too much fluid and may be fluid overloaded. He suspects that her troponin is elevated secondary to the ablation. Lasix 20mg IV administered. She will be admitted for chest pain, history of coronary artery disease, status post ablation of atrial fibrillation. I spoke with Dr. Rabago for admission and she recommended an aortic CTA to evaluate for her aortic aneurysm. CTA demonstrates a mild aneurysmal dilation of the aortic root, ascending aorta , and aortic arch. There is no evidence of dissection. Heart is enlarged, there is no pleural effusion identified. There is no evidence of complication post cardiac ablation. Patient will be admitted to Dr. Rabago Physician Communication Physician Communication Spoke with Dr. jack who recommends diuresis and echocardiogram. Patient be admitted Diagnosis Primary Impression: Chest pain Qualified Codes: R07.89 - Other chest pain Additional Impressions: Hx of coronary artery disease S/P ablation of atrial fibrillation Elevated troponin Aortic root dilation Admitting Information Admitting Physician Requests: Admit Condition: Stable Leticia Marquez May 25, 2017 13:46
[2017-05-25 13:57] VITALS: BP 161/114; PULSE 74; RESP 16; O2SAT 98
[2017-05-25 14:10] VITALS: BP 173/77; PULSE 71; RESP 16; O2SAT 98
[2017-05-25] MEDS ORDERED: FUROSEMIDE 20 MG/2 ML VIAL IV PUSH ONE (14:15)
[2017-05-25] MEDS ORDERED: LISI2.5T3 PO (14:15)
[2017-05-25] MEDS ORDERED: ROSU1TAB4 PO (14:15)
[2017-05-25] MEDS ORDERED: DIAZ2TAB PO (14:15)
[2017-05-25] MEDS ORDERED: OMEP20TA93 PO (14:15)
[2017-05-25] MEDS ORDERED: METF500T PO (14:15)
[2017-05-25] MEDS ORDERED: CEPH250T PO (14:15)
[2017-05-25] MEDS ORDERED: IOHEXOL 350 MG/ML 10 ML VIAL (for RAD DIAG) IVCONTRAST ONE (15:00)
[2017-05-25 15:15] VITALS: BP 155/75; PULSE 71; RESP 16; O2SAT 98
--- NOTE | 2017-05-25 15:38 | RADRPT ---
EXAM DATE/TIME: 05/25/2017 14:57 [facility] COMPARISON: CT PULMONARY ANGIOGRAM, November 14, 2016, 14:31. INDICATIONS : Chest discomfort status post cardiac ablation four days ago. IV CONTRAST: 95 cc Omnipaque 350 (iohexol) IV RADIATION DOSE: 16.73 CTDIvol (mGy) MEDICAL HISTORY : Stroke. Hypertension. diabetes SURGICAL HISTORY : Hysterectomy. Appendectomy.Cholecystectomy. ENCOUNTER: Initial ACUITY: 4 - 6 days PAIN SCALE: 3/10 LOCATION: Bilateral chest TECHNIQUE: Volumetric scanning was performed using a multi-row detector CT scanner. The data was post processed with a variety of visualization algorithms including full volume maximum intensity projection, multi -planar sliding thin slab reformation, curved planar reformation, and surface rendering techniques. Using automated exposure control and adjustment of the mA and/or kV according to patient size, radiat ion dose was kept as low as reasonably achievable to obtain optimal diagnostic quality images. DICOM format image data is available electronically for review and comparison. FINDINGS: Thoracic aorta: The aortic root is at the upper limits of normal in size measuring approximately 3.4 cm. The tubular portion of the ascending aorta is mildly aneurysmal at 3.9 cm. The proximal arch is aneurysmal measur ing approximately 3.7 cm. The arch tapers to a normal caliber in its distal segment. The descending t horacic aorta is normal in caliber throughout its course measuring approximately 2.3 cm. There is bov ine origin of the great vessels from the arch. The innominate artery origin is somewhat aneurysmal me asuring approximately 1.8 cm. The great vessels are widely patent. Abdominal aorta: The celiac and SMA origins are widely patent. There are single renal arteries bilaterally. The renal arteries are widely patent. The infrarenal aorta is normal in caliber. The EMMA is patent. Pelvis: The common iliac, internal iliac and external iliac circulation is widely patent throughout its cours e. CT source data: The pulmonary parenchyma demonstrates COPD changes. The heart is mildly enlarged. There is no signifi cant hilar or mediastinal adenopathy. The solid organs of the abdomen are grossly intact arterial pha se imaging. There is no retroperitoneal lymphadenopathy. No free air or free fluid is identified. CONCLUSION: 1. Mild aneurysmal dilation of the aortic root, ascending aorta and aortic arch. There is no evidence of dissection. 2. The heart is enlarged. There is no pericardial effusion identified. There is no evidence of compli cation post cardiac ablation. Chris Phan MD on May 25, 2017 at 15:32 Board Certified Radiologist. This report was verified electronically.
[2017-05-25] MEDS ORDERED: DEXTROSE 50% IN WATER 50 ML VIAL(D50) IV PUSH PRN (16:00)
[2017-05-25] MEDS ORDERED: NALOXONE HCL 0.4 MG/ML AMP IV PUSH PRN (16:00)
[2017-05-25] MEDS ORDERED: GLUCAGON 1 MG/ML VIAL OTHER PRN (16:00)
[2017-05-25] MEDS ORDERED: SODIUM CHLORIDE 0.9% FLUSH 10 ML FLUSH IV FLUSH PRN (16:00)
--- NOTE | 2017-05-25 16:18 | HHI.HP ---
HPI Service [facility] Primary Care Physician Non-Staff Admission Diagnosis elevated troponin, chest tightness Diagnoses: Travel History International Travel<30 Days: No Contact w/Intl Traveler <30 Da: No Traveled to Known Affected Are: No History of Present Illness hx from patient, ER PA and review of med records on thursday, had ablation at [facility] was given tikosyn was supposed to stay 3 days but was dc on thursday night had pains all over body- was told it was normal last night, could not sleep- had to sit up and sleep and thus called [facility] in am and was told to come to er by nurse because [place] digital librarian was away on vacation called her digital librarian here Dr Charlton who is also on vacation could not breathe, could not lie down, which was why she had to sit up to sleep no chest pain when taking a deep breath but cant take a deep breath cabg was 3 yrs ago on eliquis for anticoagulation- compliant with it had a "tube from throat" during procedure for ablation- stated was under general anesthesia because her ablation was complicated procedure now has some soar throat as well Review of Systems Except as stated in HPI: all other systems reviewed are Neg Past Family Social History Past Medical History htn dm cad s/p stent and cabg about 3 yrs ago afib s/p ablation last week- first time ; had general anesthesia chronic anticoagulation on eliquis fibromyalgia hx of pulmonary embolism - about 3 yrs ago Past Surgical History cabg coronary angiogram and stentin bilaterl knee replacement cholecystectomy partial hysterectomy cardiac ablation cataract sx Allergies: Coded Allergies: Sulfa (Sulfonamide Antibiotics) (Unverified Allergy, Severe, 05/25/17) nitrofurantoin (Unverified Allergy, Severe, 05/25/17) penicillin G (Unverified Allergy, Unknown, 05/25/17) Family History both parents- heart dx - dad had 2 cabg, 2 MO, at 92 yo Social History never smoked no etoh or no drug abuse lives with Physical Exam Vital Signs Vital Signs Date Time Temp Pulse Resp B/P (MAP) Pulse Ox O2 Delivery O2 Flow Rate FiO2 05/25/17 15:15 71 16 155/75 (101) 98 05/25/17 14:10 71 16 173/77 (109) 98 05/25/17 13:59 73 17 97 Room Air 05/25/17 13:57 74 16 161/114 (130) 98 05/25/17 12:25 98.2 73 16 190/90 (123) 98 Physical Exam GENERAL: This is a well-nourished, well-developed patient, in no apparent distress. SKIN: No rashes, ecchymoses or lesions. Cool and dry. HEAD: Atraumatic. Normocephalic. No temporal or scalp tenderness. EYES: No scleral icterus. No injection or drainage. ENT: Nose without bleeding, purulent drainage or septal hematoma. Airway patent. NECK: Trachea midline. No JVD. Supple, nontender, no meningeal signs. CARDIOVASCULAR: Regular rate and rhythm without murmurs, gallops, or rubs. RESPIRATORY: Clear to auscultation. Breath sounds equal bilaterally. No wheezes , rales, or rhonchi. GASTROINTESTINAL: Abdomen soft, non-tender, nondistended. No guarding. MUSCULOSKELETAL: Extremities without clubbing, cyanosis, or edema. No calf tenderness. NEUROLOGICAL: Awake and alert. Motor and sensory grossly within normal limits. Normal speech. Laboratory Laboratory Tests Test 05/25/17 13:00 White Blood Count 8.8 Red Blood Count 4.28 Hemoglobin 12.1 Hematocrit 36.7 Mean Corpuscular Volume 85.7 Mean Corpuscular Hemoglobin 28.2 Mean Corpuscular Hemoglobin Concent 32.9 Red Cell Distribution Width 16.4 Platelet Count 298 Mean Platelet Volume 7.1 Neutrophils (%) (Auto) 61.8 Lymphocytes (%) (Auto) 28.7 Monocytes (%) (Auto) 7.6 Eosinophils (%) (Auto) 1.4 Basophils (%) (Auto) 0.5 Neutrophils # (Auto) 5.5 Lymphocytes # (Auto) 2.5 Monocytes # (Auto) 0.7 Eosinophils # (Auto) 0.1 Basophils # (Auto) 0.0 CBC Comment DIFF FINAL Differential Comment Prothrombin Time 10.6 Prothromb Time International Ratio 1.0 Activated Partial Thromboplast Time 24.3 Blood Urea Nitrogen 27 Creatinine 0.95 Random Glucose 131 Calcium Level 9.2 Magnesium Level 1.9 Sodium Level 139 Potassium Level 4.4 Chloride Level 102 Carbon Dioxide Level 29.3 Anion Gap 8 Estimat Glomerular Filtration Rate 56 Total Creatine Kinase 35 Troponin I 0.07 Result Diagram: 05/25/17 1300 05/25/17 1300 Imaging Last 48 hours Impressions Chest X-Ray 05/25/17 1228 Signed Impressions: Service Date/Time: Thursday, May 25, 2017 12:57 - CONCLUSION: 1. No infiltrate seen. No evidence of pleural effusion. 2. Increasing retrocardiac density suggesting enlargement in size of hiatus hernia. Matthieu Mcmanus MD Aorta CTA 05/25/17 0000 Signed Impressions: Service Date/Time: Thursday, May 25, 2017 14:57 - CONCLUSION: 1. Mild aneurysmal dilation of the aortic root, ascending aorta and aortic arch. There is no evidence of dissection. 2. The heart is enlarged. There is no pericardial effusion identified. There is no evidence of complication post cardiac ablation. Chris Phan MD Caprini VTE Risk Assessment Caprini VTE Risk Assessment: Mod/High Risk (score >= 2) Caprini Risk Assessment Model Point Value = 1 Point Value = 2 Point Value = 3 Point Value = 5 Age 41-60 Minor surgery BMI > 25 kg/m2 Swollen legs Varicose veins or History of unexplained or recurrent spontaneous Oral contraceptives or hormone replacement Sepsis (< 1 month) Serious lung disease, including pneumonia (< 1 month) Abnormal pulmonary function Acute myocardial infarction Congestive heart failure (< 1 month) History of inflammatory bowel disease Medical patient at bed rest Age 61-74 Arthroscopic surgery Major open surgery (> 45 min) Laparoscopic surgery (> 45 min) Malignancy Confined to bed (> 72 hours) Immobilizing plaster cast Central venous access Age >= 75 History of VTE Family history of VTE Factor V Leiden Prothrombin [id number] Lupus anticoagulant Anticardiolipin antibodies Elevated serum homocysteine Heparin-induced thrombocytopenia Other congenital or acquired thrombophilia Stroke (< 1 month) Elective arthroplasty Hip, pelvis, or leg fracture Acute spinal cord injury (< 1 month) Prophylaxis Regimen Total Risk Factor Score Risk Level Prophylaxis Regimen 0-1 Low Early ambulation 2 Moderate Order ONE of the following: *Sequential Compression Device (SCD) *Heparin 5000 units SQ BID 3-4 Higher Order ONE of the following medications: *Heparin 5000 units SQ TID *Enoxaparin/Lovenox 40 mg SQ daily (WT < 150 kg, CrCl > 30 mL/min) *Enoxaparin/Lovenox 30 mg SQ daily (WT < 150 kg, CrCl > 10-29 mL/min) *Enoxaparin/Lovenox 30 mg SQ BID (WT < 150 kg, CrCl > 30 mL/min) AND/OR *Sequential Compression Device (SCD) 5 or more Highest Order ONE of the following medications: *Heparin 5000 units SQ TID (Preferred with Epidurals) *Enoxaparin/Lovenox 40 mg SQ daily (WT < 150 kg, CrCl > 30 mL/min) *Enoxaparin/Lovenox 30 mg SQ daily (WT < 150 kg, CrCl > 10-29 mL/min) *Enoxaparin/Lovenox 30 mg SQ BID (WT < 150 kg, CrCl > 30 mL/min) AND *Sequential Compression Device (SCD) Assessment and Plan Assessment and Plan Impression: Generalized body aches and pain Dyspnea. Etiology unclear. Likely related to recent intubation and possible atelectasis. We will need to rule out possible fluid overload/new onset CHF. Elevated troponin. Nonspecific. Secondary to recent instrumentation/ablation. Uncontrolled hypertension. Likely due to missing her meds while in hospital. Partly from pain as well. htn dm cad s/p stent and cabg about 3 yrs ago afib s/p ablation last week- first time ; had general anesthesia chronic anticoagulation on eliquis fibromyalgia hx of pulmonary embolism - about 3 yrs ago Plan: BNP. Add on to blood in lab. CT chest personally reviewed. No evidence of acute infiltrates or pericardial effusions or pleural effusions. Patient has history of aortic aneurysm ascending 4.4 cm in November 2016 per records. Therefore I have requested for CTA of the order to rule out aortic dissection which is negative. Results reviewed. No need to trend cardiac enzymes as patient just had cardiac ablation which would falsely elevate this. Patient was given general anesthesia for her cardiac ablation. She was intubated and is of sore throat from this. She has history of significant fibromyalgia which includes dysphagia and affecting all her muscles. Possible that this is contributing to her weakness from diaphragm postintubation. Nevertheless, we would obtain echocardiogram to rule out CHF new-onset. Resume Eliquis. Resume rest of her home medications apart from lisinopril which was just prescribed recently. Patient has cough with this. Patient was advised to stop this. We'll consider starting patient on ARB if the blood pressure remains elevated despite her other home meds. We'll monitor fingersticks. pt was seen by Dr Raza, partner of pt's digital librarian while in ER per ER PA- will await further recommendations DVT prophylaxis on Eliquis. GI prophylaxis on pantoprazole. Discussed Condition With patient, ER PA, nursing staff Dirk Rabago MD May 25, 2017 16:18
[2017-05-25] MEDS ORDERED: METO1TAB9 PO (16:32)
[2017-05-25] MEDS ORDERED: DILT240C44 PO (16:32)
[2017-05-25] MEDS ORDERED: PILL SPLITTER OTHER PRN (16:45)
[2017-05-25] MEDS: INSULIN ASPART SUPPLEMENTAL SCALE SQ SCH ×2 (17:00→21:00)
[2017-05-25] MEDS: CEPHALEXIN MONOHYDRATE 250 MG CAP PO SCH ×2 (17:00→22:24)
[2017-05-25 17:16] VITALS: BP 141/70; PULSE 66; RESP 16; TEMP 98; O2SAT 97
[2017-05-25] MEDS ORDERED: CALCIUM CARBONATE 500 MG CHEWABLE TAB CHEW PRN (20:30)
[2017-05-25 20:39] VITALS: BP 120/58; PULSE 61; RESP 16; TEMP 98.1; O2SAT 98
[2017-05-25] MEDS: SODIUM CHLORIDE 0.9% FLUSH 10 ML FLUSH IV FLUSH SCH (20:48)
[2017-05-25] MEDS: APIXABAN 5 MG TABLET PO SCH (20:48)
[2017-05-25] MEDS ORDERED: FAMOTIDINE 20 MG TAB PO SCH (21:00)
--- NOTE | 2017-05-25 21:50 | MB ---
cc: MARK KAPOOR DATE OF CONSULTATION 05/25/2017 HISTORY OF THE PRESENT ILLNESS An 82-year-old white female, a patient of Dr. Metcalf, with recent ablation of atrial fibrillation at [facility] in [place]. She was discharged on Thursday night. She had difficulty sleeping, she had shortness of breath, PND and orthopnea. She also had substernal chest tightness. She has not had any lower extremity edema. She was started on Eliquis for anticoagulation. She was also started on Tikosyn. PAST MEDICAL HISTORY Positive for: 1. Stable aortic dissection. 2. Coronary artery disease. 3. Myocardial infarction. 4. Coronary intervention with multiple stents to RC, LAD, single vessel bypass with INGRAM to LAD in 2014. 5. Last cardiac cath in 11/2016 showed patent stent and patent INGRAM to the LAD. 6. History of atrial fibrillation with ablation at [facility] as above. 7. Hypertension. 8. Dyslipidemia. 9. Asthma. 10. Diabetes mellitus. 11. Fibromyalgia. 12. Chronic fatigue syndrome. 13. Gastroesophageal reflux disease. 14. Leiden factor V deficiency. 15. Irritable bowel syndrome. 16. Pulmonary embolism. 17. Knee replacement. 18. Hysterectomy. MEDICATIONS Include: 1. Digitek. 2. Januvia. 3. Hydrocodone. 4. Acetaminophen. 5. Eliquis. 6. Metoprolol. 7. Cephalexin. 8. Diazepam. 9. Metformin. 10. Rosuvastatin. 11. Lisinopril. 12. Omeprazole. 13. Diltiazem. ALLERGIES SULFA, NITROFURANTOIN, PENICILLIN. SOCIAL HISTORY Patient does not smoke. She does not drink alcohol. FAMILY HISTORY Negative for heart disease. REVIEW OF SYSTEMS Otherwise negative. PHYSICAL EXAMINATION VITAL SIGNS: Blood pressure 155/75, pulse 71 and regular. HEENT: Negative. 2+ carotid upstrokes. No bruits. LUNGS: Clear. HEART: Regular with no murmur, gallop or rub. ABDOMEN: Soft. No bruits. EXTREMITIES: Without edema. 2+ distal pulses. NEUROLOGIC: Nonfocal. EKG was reviewed and showed normal sinus rhythm, PACs, nonspecific T wave changes. LABORATORY DATA Hemoglobin 12.1. Potassium 4.4, creatinine 0.95. CK 35. Troponin 0.07. DIAGNOSES 1. Dyspnea. 2. Recent ablation of atrial fibrillation. 3. Coronary artery disease, history of myocardial infarction, coronary stenting and single vessel coronary artery bypass. 4. Mildly elevated troponin. 5. Chronic aortic dissection. 6. History of pulmonary embolism. 7. Hypertension. 8. Dyslipidemia. 9. Fibromyalgia. 10. Asthma. DISPOSITION Ms. Roman will be admitted to the hospital. She will be monitored on telemetry. We will obtain echocardiogram. Her chest CT showed no significant pericardial effusion or pleural effusion. We will continue anticoagulation with Eliquis. I recommend therapy for congestive heart failure including diuresis. I will follow her for cardiology during her hospitalization. She will be scheduled to see Dr. Metcalf, her primary freelance makeup artist, in his office after discharge. Mark Kapoor MD OQ/KK /4:23 PM /9:22 PM MTDD
[2017-05-25] MEDS: ACETAMINOPHEN/HYDROcodone 325 MG/5 MG TAB PO PRN (22:26)
[2017-05-26] VITALS (7 sets, daily range): BP systolic 109–137; BP diastolic 55–79; PULSE 62–89; RESP 16–18; TEMP 97.8–98.7; O2SAT 95–97
[2017-05-26] MEDS: CEPHALEXIN MONOHYDRATE 250 MG CAP PO SCH ×4 (06:01→21:04)
[2017-05-26 06:34] LABS: AUTOMATED NEUTROPHIL # 4.8 TH/MM3 (1.8-7.7); BASOPHIL % 0.4 % (0.0-2.0); EOSINOPHIL # 0.2 TH/MM3 (0-0.4); HEMATOCRIT 36.6 % (35.0-46.0); HEMOGLOBIN 12.3 GM/DL (11.6-15.3); LYMPH % 36.1 % (9.0-44.0); LYMPHOCYTE # 3.3 TH/MM3 (1.0-4.8); MEAN CELL VOLUME 84.9 FL (80.0-100.0); MEAN CORPUSCULAR HEMOGLOBIN 28.6 PG (27.0-34.0); MEAN CORPUSCULAR HGB CONC 33.7 % (32.0-36.0); MEAN PLATELET VOLUME 7.1 FL (7.0-11.0); MONO % 9.5 % (0.0-8.0); MONOCYTE # 0.9 TH/MM3 (0-0.9); PLATELET COUNT 293 TH/MM3 (150-450); RED BLOOD COUNT 4.31 MIL/MM3 (4.00-5.30); RED CELL DISTRIBUTION WIDTH 15.9 % (11.6-17.2); WHITE BLOOD COUNT 9.2 TH/MM3 (4.0-11.0)
[2017-05-26 07:22] LABS: BICARBONATE 28.4 MEQ/L (21.0-32.0); CALCIUM 9.3 MG/DL (8.5-10.1); CREATININE 0.97 MG/DL (0.50-1.00)
[2017-05-26] MEDS: INSULIN ASPART SUPPLEMENTAL SCALE SQ SCH ×4 (08:00→21:08)
[2017-05-26] MEDS: SODIUM CHLORIDE 0.9% FLUSH 10 ML FLUSH IV FLUSH SCH ×2 (08:59→21:04)
[2017-05-26] MEDS ORDERED: DIGOXIN 0.125 MG TAB PO SCH (09:00)
[2017-05-26] MEDS: APIXABAN 5 MG TABLET PO SCH ×2 (09:02→21:07)
[2017-05-26] MEDS: PANTOPRAZOLE SOD 20 MG DELAYED RELEASE TAB PO SCH (09:02)
[2017-05-26] MEDS: ATORVASTATIN 10 MG TAB PO SCH (09:02)
[2017-05-26] MEDS: FAMOTIDINE 20 MG TAB PO SCH (09:02)
--- NOTE | 2017-05-26 09:57 | HHI.PR ---
Subjective Remarks Follow up dyspnea, elevated troponin. Patient states that she feels much better today. Denies chest pain. Dyspnea is improving. Still slept sitting up last night. Objective Vitals Vital Signs Date Time Temp Pulse Resp B/P (MAP) Pulse Ox O2 Delivery O2 Flow Rate FiO2 05/26/17 07:45 97.8 65 18 124/63 (83) 95 05/26/17 07:07 74 05/26/17 02:16 98.1 63 18 116/55 (75) 95 05/26/17 02:11 62 05/25/17 20:39 98.1 61 16 120/58 (78) 98 05/25/17 17:16 98.0 66 16 141/70 (93) 97 05/25/17 15:15 71 16 155/75 (101) 98 05/25/17 14:30 05/25/17 14:10 71 16 173/77 (109) 98 05/25/17 13:59 73 17 97 Room Air 05/25/17 13:57 74 16 161/114 (130) 98 05/25/17 12:25 98.2 73 16 190/90 (123) 98 I/O 05/25/17 05/25/17 05/25/17 05/26/17 05/26/17 05/26/17 07:00 15:00 23:00 07:00 15:00 23:00 Intake Total 750 ml Balance 750 ml Intake Oral 750 ml # Voids 2 Result Diagram: 05/26/17 0540 05/26/17 0540 Imaging Last Impressions Chest X-Ray 05/25/17 1228 Signed Impressions: Service Date/Time: Thursday, May 25, 2017 12:57 - CONCLUSION: 1. No infiltrate seen. No evidence of pleural effusion. 2. Increasing retrocardiac density suggesting enlargement in size of hiatus hernia. Matthieu Mcmanus MD Aorta CTA 05/25/17 0000 Signed Impressions: Service Date/Time: Thursday, May 25, 2017 14:57 - CONCLUSION: 1. Mild aneurysmal dilation of the aortic root, ascending aorta and aortic arch. There is no evidence of dissection. 2. The heart is enlarged. There is no pericardial effusion identified. There is no evidence of complication post cardiac ablation. Chris Phan MD Objective Remarks General: Elderly female in no acute distress. Heart: Regular rate and rhythm. No murmur. Lungs: Clear to auscultation bilaterally. No wheezes, rales, or rhonchi. Breathing is nonlabored. Abdomen: Soft, nontender, nondistended. Extremities: No lower extremity edema. Psych: Alert and oriented. Procedures None Urinary Catheter: No Vascular Central Line Catheter: No A/P Assessment and Plan 1. Generalized body aches: Improved. Patient does report history of fibromyalgia. This may also be secondary to medication reaction from medication she was given following ablation. 2. Dyspnea: Improved. Evaluate for new onset CHF with echocardiogram. 3. Atrial fibrillation: Status post ablation at [place]. Appreciate cardiology recommendations. Continue Eliquis, digoxin. 4. Hypertension: Blood pressure is well controlled. 5. Diabetes mellitus: Monitor Accu-Cheks and cover with sliding scale insulin. Diabetic diet. 6. Coronary artery disease: Status post stent, CABG 3 years ago. Troponin was slightly elevated, but this was most likely secondary to ablation. Appreciate cardiology recommendations. Continue home medications. 7. DVT prophylaxis: Eliquis. Parmjit Gordon MD May 26, 2017 09:57
--- NOTE | 2017-05-26 12:04 | PD.CARD.PN ---
Subjective Subjective Remarks No CP, mild SOB, improving Objective Medications Current Medications Medications (Trade) Dose Ordered Sig/Ambika Route Start Time Stop Time Status Last Admin (NS Flush) 2 ml UNSCH PRN IV FLUSH 05/25/17 16:00 (NS Flush) 2 ml BID IV FLUSH 05/25/17 21:00 05/26/17 08:59 (Narcan Inj) 0.4 mg UNSCH PRN IV PUSH 05/25/17 16:00 (D50w (Vial) Inj) 50 ml UNSCH PRN IV PUSH 05/25/17 16:00 (Glucagon Inj) 1 mg UNSCH PRN OTHER 05/25/17 16:00 (NovoLOG SUPPLEMENTAL SCALE) 1 ACHS SLIDING SCALE SQ 05/25/17 17:00 (Eliquis) 5 mg BID PO 05/25/17 21:00 05/26/17 09:02 (Keflex) 250 mg Q6H PO 05/25/17 17:00 05/26/17 11:34 (Valium) 0.5 mg BID PRN PO 05/25/17 16:30 (Lanoxin) 0.125 mg EVERY OTHER DAY PO 05/26/17 09:00 05/26/17 09:02 (Lanoxin) 0.25 mg EVERY OTHER DAY PO 05/27/17 09:00 ([place] 5-325 Mg) 1 tab BID PRN PO 05/25/17 16:30 05/25/17 22:26 (Glucophage) 500 mg BIDPC PO 05/27/17 18:00 (Januvia) 100 mg DAILY PO 05/26/17 09:00 05/26/17 09:02 (Protonix) 20 mg DAILY PO 05/26/17 09:00 05/26/17 09:02 (Lipitor) 10 mg DAILY PO 05/26/17 09:00 05/26/17 09:02 (Pill Splitter) 1 ea UNSCH PRN OTHER 05/25/17 16:45 (Tums Chew) 500 mg Q2H PRN CHEW 05/25/17 20:30 05/25/17 20:48 (Pepcid) 20 mg DAILY PO 05/26/17 09:00 05/26/17 09:02 Vital Signs / I&O Vital Signs Date Time Temp Pulse Resp B/P (MAP) Pulse Ox O2 Delivery O2 Flow Rate FiO2 05/26/17 11:19 97.9 76 18 109/60 (76) 95 05/26/17 07:45 97.8 65 18 124/63 (83) 95 05/26/17 07:07 74 05/26/17 02:16 98.1 63 18 116/55 (75) 95 05/26/17 02:11 62 05/25/17 20:39 98.1 61 16 120/58 (78) 98 05/25/17 17:16 98.0 66 16 141/70 (93) 97 05/25/17 15:15 71 16 155/75 (101) 98 05/25/17 14:30 05/25/17 14:10 71 16 173/77 (109) 98 05/25/17 13:59 73 17 97 Room Air 05/25/17 13:57 74 16 161/114 (130) 98 05/25/17 12:25 98.2 73 16 190/90 (123) 98 I/O 05/25/17 05/25/17 05/25/17 05/26/17 05/26/17 05/26/17 07:00 15:00 23:00 07:00 15:00 23:00 Intake Total 750 ml Balance 750 ml Intake Oral 750 ml # Voids 2 Physical Exam GENERAL: In NAD SKIN: Warm and dry. HEAD: Normocephalic. EYES: No scleral icterus. No injection or drainage. NECK: Supple, trachea midline. No JVD or lymphadenopathy. CARDIOVASCULAR: Regular rate and rhythm without murmurs, gallops, or rubs. RESPIRATORY: Breath sounds equal bilaterally. No accessory muscle use. GASTROINTESTINAL: Abdomen soft, non-tender, nondistended. MUSCULOSKELETAL: No cyanosis, trace edema. Laboratory Laboratory Tests Test 05/25/17 13:00 05/26/17 05:40 White Blood Count 8.8 TH/MM3 9.2 TH/MM3 Red Blood Count 4.28 MIL/MM3 4.31 MIL/MM3 Hemoglobin 12.1 GM/DL 12.3 GM/DL Hematocrit 36.7 % 36.6 % Mean Corpuscular Volume 85.7 FL 84.9 FL Mean Corpuscular Hemoglobin 28.2 PG 28.6 PG Mean Corpuscular Hemoglobin Concent 32.9 % 33.7 % Red Cell Distribution Width 16.4 % 15.9 % Platelet Count 298 TH/MM3 293 TH/MM3 Mean Platelet Volume 7.1 FL 7.1 FL Neutrophils (%) (Auto) 61.8 % 52.0 % Lymphocytes (%) (Auto) 28.7 % 36.1 % Monocytes (%) (Auto) 7.6 % 9.5 % Eosinophils (%) (Auto) 1.4 % 2.0 % Basophils (%) (Auto) 0.5 % 0.4 % Neutrophils # (Auto) 5.5 TH/MM3 4.8 TH/MM3 Lymphocytes # (Auto) 2.5 TH/MM3 3.3 TH/MM3 Monocytes # (Auto) 0.7 TH/MM3 0.9 TH/MM3 Eosinophils # (Auto) 0.1 TH/MM3 0.2 TH/MM3 Basophils # (Auto) 0.0 TH/MM3 0.0 TH/MM3 CBC Comment DIFF FINAL DIFF FINAL Differential Comment Prothrombin Time 10.6 SEC Prothromb Time International Ratio 1.0 RATIO Activated Partial Thromboplast Time 24.3 SEC Blood Urea Nitrogen 27 MG/DL 32 MG/DL Creatinine 0.95 MG/DL 0.97 MG/DL Random Glucose 131 MG/DL 122 MG/DL Calcium Level 9.2 MG/DL 9.3 MG/DL Magnesium Level 1.9 MG/DL Sodium Level 139 MEQ/L 139 MEQ/L Potassium Level 4.4 MEQ/L 3.8 MEQ/L Chloride Level 102 MEQ/L 103 MEQ/L Carbon Dioxide Level 29.3 MEQ/L 28.4 MEQ/L Anion Gap 8 MEQ/L 8 MEQ/L Estimat Glomerular Filtration Rate 56 ML/MIN 55 ML/MIN Total Creatine Kinase 35 U/L Troponin I 0.07 NG/ML B-Type Natriuretic Peptide 164 PG/ML Imaging Last 24 hours Impressions Chest X-Ray 05/25/17 1228 Signed Impressions: Service Date/Time: Thursday, May 25, 2017 12:57 - CONCLUSION: 1. No infiltrate seen. No evidence of pleural effusion. 2. Increasing retrocardiac density suggesting enlargement in size of hiatus hernia. Matthieu Mcmanus MD Assessment and Plan Problem List: (1) Dyspnea ICD Codes: R06.00 - Dyspnea, unspecified (2) Chest pain ICD Codes: R07.9 - Chest pain Status: Acute (3) Elevated troponin ICD Codes: R74.8 - Abnormal levels of other serum enzymes Status: Acute (4) S/P ablation of atrial fibrillation ICD Codes: Z98.890 - Other specified postprocedural states; Z86.79 - Personal history of other diseases of the circulatory system Status: Acute (5) CAD (coronary artery disease) ICD Codes: I25.10 - Atherosclerotic heart disease of [place] coronary artery without angina pectoris Status: Acute (6) Hypertension ICD Codes: I10 - Hypertension Status: Chronic Assessment and Plan Stays in SR. Overall improvement. Continue monitoring. Check echo. No evidence of ACS. Increase activity. F/u w Dr. Metcalf as outpt. Problem Qualifiers (1) Chest pain: Qualified Codes: R07.89 - Other chest pain Mark Raza MD May 26, 2017 12:04
--- NOTE | 2017-05-26 18:48 | EKG ---
Date Performed: 05/25/2017 Time Performed: 12:36:39 PTAGE: 82 years EKG: Sinus rhythm WITH OCCASIONAL SUPRAVENTRICULAR PREMATURE COMPLEXES NONSPECIFIC ST & T-WAVE ABNORMALITY BORDERLINE ECG Since the prior tracing, there has been no significant change PREVIOUS TRACING : 11/14/2016 08.57 DOCTOR: Chloé Tamayo Interpretating Date/Time 05/26/2017 18:44:54
--- NOTE | 2017-05-26 18:48 | EKG ---
Date Performed: 05/26/2017 Time Performed: 01:03:45 PTAGE: 82 years EKG: Sinus rhythm WITH FIRST DEGREE AV BLOCK WITH OCCASIONAL SUPRAVENTRICULAR PREMATURE COMPLEXES NONSPECIFIC ST & T-W AVE ABNORMALITY ABNORMAL ECG Since the prior tracing, there has been no significant change PREVIOUS TRACING : 05/25/2017 18.54 DOCTOR: Chloé Tamayo Interpretating Date/Time 05/26/2017 18:45:10
--- NOTE | 2017-05-26 18:48 | EKG ---
Date Performed: 05/25/2017 Time Performed: 18:54:46 PTAGE: 82 years EKG: Sinus rhythm WITH FIRST DEGREE AV BLOCK WITH FREQUENT SUPRAVENTRICULAR PREMATURE COMPLEXES NONSPECIFIC ST & T-WAV E ABNORMALITY ABNORMAL ECG Since the prior tracing, there has been no significant change NO PREVIOUS TRACING DOCTOR: Chloé Tamayo Interpretating Date/Time 05/26/2017 18:45:02
--- NOTE | 2017-05-26 19:55 | ECHRPT ---
Indication: ATRIAL FIB/FLUTTER CONCLUSIONS The left ventricular systolic function is mildly reduced with an estimated ejection fraction in the range of 45- 50%. Mild concentric left ventricular hypertrophy. A patent foramen ovale is present with a left to right shunt demonstrated by color flow Doppler interrogation. Trace mitral valve regurgitation. There is mild tricuspid valve regurgitation. Trivial pulmonary valve regurgitation. BP: 109 / 60 HR: 76 Rhythm: Atrial fibrillation, Atrial flut ter MEASUREMENTS (Male / Female) Normal Values Technical Quality:Fair 2D ECHO LV Diastolic Diameter PLAX 4.4 cm 4.2 - 5.9 / 3.9 - 5.3 cm LV Systolic Diameter PLAX 3.6 cm IVS Diastolic Thickness 1.1 cm 0.6 - 1.0 / 0.6 - 0.9 cm LVPW Diastolic Thickness 1.1 cm 0.6 - 1.0 / 0.6 - 0.9 cm LV Relative Wall Thickness 0.5 RV Internal Dim ED PLAX 3.1 cm LVOT Diameter 1.9 cm Aortic Root Diameter 3.3 cm LA Systolic Diameter LX 4.3 cm 3.0 - 4.0 / 2.7 - 3.8 cm M-MODE AV Cusp Separation MM 1.8 cm DOPPLER AV Peak Velocity 98.8 cm/s AV Peak Gradient 3.9 mmHg AV Mean Gradient 2.0 mmHg AV Velocity Time Integral 17.8 cm LVOT Peak Velocity 50.7 cm/s LVOT Peak Gradient 1.0 mmHg LVOT Velocity Time Integral 7.2 cm AV Area Cont Eq vti 1.1 cm AV Area Cont Eq pk 1.5 cm LV E' Lateral Velocity 12.1 cm/s LV E' Septal Velocity 6.8 cm/s TR Peak Velocity 276.0 cm/s TR Peak Gradient 30.5 mmHg Right Atrial Pressure 10.0 mmHg Pulmonary Artery Systolic Pressu 40.5 mmHg Right Ventricular Systolic Press 40.5 mmHg PV Peak Velocity 78.5 cm/s PV Peak Gradient 2.5 mmHg FINDINGS LEFT VENTRICLE Normal left ventricular size. Mild concentric left ventricular hypertrophy. The left ventricular systolic function is mildly reduced with an estimated ejection fraction in the range of 45- 50%. RIGHT VENTRICLE The right ventricle was not well visualized. LEFT ATRIUM The left atrial size is moderately dilated. RIGHT ATRIUM The right atrial size is mildly dilated. ATRIAL SEPTUM A patent foramen ovale is present with a left to right shunt demonstrated by color flow Doppler interrogation. AORTA The aortic root and proximal ascending aorta are normal in size on limited imaging. MITRAL VALVE Structurally normal mitral valve. Trace mitral valve regurgitation. No mitral valve stenosis. AORTIC VALVE Aortic valve sclerosis is present. No aortic valve regurgitation. No aortic valve stenosis. TRICUSPID VALVE Structurally normal tricuspid valve. There is mild tricuspid valve regurgitation. The estimated pulmonary arterial pressure is 40.5 mmHg. PULMONARY VALVE Trivial pulmonary valve regurgitation. The pulmonary valve is not well visualized. VESSELS The inferior vena cava was not well visualized. PERICARDIUM No pericardial effusion. Milton Tom DO (Electronically Signed) Final Date:26 May 2017 19:54
[2017-05-26] MEDS: ACETAMINOPHEN/HYDROcodone 325 MG/5 MG TAB PO PRN (21:06)
[2017-05-26] MEDS: DIAZEPAM 2 MG TAB PO PRN (21:06)
[2017-05-27] VITALS (8 sets, daily range): BP systolic 117–210; BP diastolic 59–105; PULSE 70–122; RESP 14–18; TEMP 97.7–98.6; O2SAT 95–98
[2017-05-27] MEDS: CEPHALEXIN MONOHYDRATE 250 MG CAP PO SCH ×4 (05:02→21:31)
[2017-05-27] MEDS ORDERED: cloNIDine HCL 0.1 MG TAB PO ONE (07:00)
[2017-05-27] MEDS: INSULIN ASPART SUPPLEMENTAL SCALE SQ SCH ×4 (08:00→21:40)
[2017-05-27] MEDS: SODIUM CHLORIDE 0.9% FLUSH 10 ML FLUSH IV FLUSH SCH ×2 (08:14→21:29)
[2017-05-27] MEDS: APIXABAN 5 MG TABLET PO SCH ×2 (08:15→21:29)
[2017-05-27] MEDS: ATORVASTATIN 10 MG TAB PO SCH (08:15)
[2017-05-27] MEDS: FAMOTIDINE 20 MG TAB PO SCH (08:15)
[2017-05-27] MEDS: PANTOPRAZOLE SOD 20 MG DELAYED RELEASE TAB PO SCH (08:15)
[2017-05-27 08:34] LABS: AUTOMATED NEUTROPHIL # 5.4 TH/MM3 (1.8-7.7); BASOPHIL % 0.5 % (0.0-2.0); EOSINOPHIL # 0.1 TH/MM3 (0-0.4); EOSINOPHIL % 1.2 % (0.0-4.0); HEMATOCRIT 39.9 % (35.0-46.0); HEMOGLOBIN 13.7 GM/DL (11.6-15.3); LYMPH % 26.3 % (9.0-44.0); LYMPHOCYTE # 2.2 TH/MM3 (1.0-4.8); MEAN CELL VOLUME 84.4 FL (80.0-100.0); MEAN CORPUSCULAR HGB CONC 34.4 % (32.0-36.0); MEAN PLATELET VOLUME 6.9 FL (7.0-11.0); MONO % 8.2 % (0.0-8.0); MONOCYTE # 0.7 TH/MM3 (0-0.9); NEUT % 63.8 % (16.0-70.0); PLATELET COUNT 301 TH/MM3 (150-450); RED BLOOD COUNT 4.73 MIL/MM3 (4.00-5.30); RED CELL DISTRIBUTION WIDTH 16.1 % (11.6-17.2); WHITE BLOOD COUNT 8.4 TH/MM3 (4.0-11.0)
[2017-05-27 08:49] LABS: BICARBONATE 26.2 MEQ/L (21.0-32.0); CALCIUM 9.2 MG/DL (8.5-10.1); CREATININE 0.97 MG/DL (0.50-1.00)
[2017-05-27 08:54] LABS: TROPONIN I 0.05 NG/ML (0.02-0.05)
[2017-05-27] MEDS ORDERED: DIGOXIN 0.25 MG TAB PO SCH (09:00)
--- NOTE | 2017-05-27 10:37 | HHI.PR ---
Subjective Remarks Follow up dyspnea, elevated troponin. The patient states that she had an episode of chest pain this morning and her blood pressure was significantly elevated. She feels better now. She did have tenderness in the left side of her chest following echocardiogram yesterday. No shortness of breath at this time. No nausea or vomiting. Objective Vitals Vital Signs Date Time Temp Pulse Resp B/P (MAP) Pulse Ox O2 Delivery O2 Flow Rate FiO2 05/27/17 09:41 97.7 95 18 122/69 (86) 96 05/27/17 06:50 98.6 122 16 210/105 (140) 98 05/27/17 04:58 97.8 88 14 149/78 (101) 96 05/27/17 00:56 98.0 83 14 149/79 (102) 98 05/27/17 00:00 90 05/26/17 19:23 98.7 89 16 127/78 (94) 97 05/26/17 15:36 97.8 81 18 137/79 (98) 96 05/26/17 11:19 97.9 76 18 109/60 (76) 95 I/O 05/26/17 05/26/17 05/26/17 05/27/17 05/27/17 05/27/17 07:00 15:00 23:00 07:00 15:00 23:00 Intake Total 750 ml 720 ml Balance 750 ml 720 ml Intake Oral 750 ml 720 ml # Voids 2 3 1 Result Diagram: 05/27/17 0817 05/27/17 0817 Imaging Last Impressions Chest X-Ray 05/25/17 1228 Signed Impressions: Service Date/Time: Thursday, May 25, 2017 12:57 - CONCLUSION: 1. No infiltrate seen. No evidence of pleural effusion. 2. Increasing retrocardiac density suggesting enlargement in size of hiatus hernia. Matthieu Mcmanus MD Aorta CTA 05/25/17 0000 Signed Impressions: Service Date/Time: Thursday, May 25, 2017 14:57 - CONCLUSION: 1. Mild aneurysmal dilation of the aortic root, ascending aorta and aortic arch. There is no evidence of dissection. 2. The heart is enlarged. There is no pericardial effusion identified. There is no evidence of complication post cardiac ablation. Chris Phan MD Objective Remarks General: Elderly female in no acute distress. Heart: Irregular, tachycardic. Lungs: Clear to auscultation bilaterally. No wheezes, rales, or rhonchi. Breathing is nonlabored. Abdomen: Soft, nontender, nondistended. Extremities: No lower extremity edema. Psych: Alert and oriented. Procedures None Urinary Catheter: No Vascular Central Line Catheter: No A/P Assessment and Plan 1. Generalized body aches: Improved. Patient does report history of fibromyalgia. This may also be secondary to medication reaction from medication she was given following ablation. 2. Dyspnea: Improved. Echo shows EF 45-50%, patent foramen ovale, mild concentric LVH. 3. Atrial fibrillation: Status post ablation at [place]. Appreciate cardiology recommendations. Continue Eliquis, digoxin, metoprolol, diltiazem. Rate is increased today. 4. Hypertension: Blood pressure is well controlled. Resume home meds (Toprol XL , Cardizem CD, lisinopril). 5. Diabetes mellitus: Monitor Accu-Cheks and cover with sliding scale insulin. Diabetic diet. 6. Coronary artery disease: Status post stent, CABG 3 years ago. Troponin was slightly elevated, but this was most likely secondary to ablation. Appreciate cardiology recommendations. Continue home medications. 7. Patent foramen ovale: Seen on echocardiogram. Appreciate cardiology recommendations. 8. DVT prophylaxis: Eliquis. Discharge Planning Pending cardiology clearance. Parmjit Gordon MD May 27, 2017 10:37
[2017-05-27] MEDS ORDERED: LISINOPRIL 5 MG TAB PO SCH (10:45)
--- NOTE | 2017-05-27 11:09 | PD.CARD.PN ---
Subjective Subjective Remarks No CP, mild SOB, symptomatic AF w RVR this AM, also hypertensive Objective Medications Current Medications Medications (Trade) Dose Ordered Sig/Ambika Route Start Time Stop Time Status Last Admin (NS Flush) 2 ml UNSCH PRN IV FLUSH 05/25/17 16:00 (NS Flush) 2 ml BID IV FLUSH 05/25/17 21:00 05/27/17 08:14 (Narcan Inj) 0.4 mg UNSCH PRN IV PUSH 05/25/17 16:00 (D50w (Vial) Inj) 50 ml UNSCH PRN IV PUSH 05/25/17 16:00 (Glucagon Inj) 1 mg UNSCH PRN OTHER 05/25/17 16:00 (NovoLOG SUPPLEMENTAL SCALE) 1 ACHS SLIDING SCALE SQ 05/25/17 17:00 05/26/17 21:08 (Eliquis) 5 mg BID PO 05/25/17 21:00 05/27/17 08:15 (Keflex) 250 mg Q6H PO 05/25/17 17:00 05/27/17 05:02 (Valium) 0.5 mg BID PRN PO 05/25/17 16:30 05/26/17 21:06 (Lanoxin) 0.125 mg EVERY OTHER DAY PO 05/26/17 09:00 05/26/17 09:02 (Lanoxin) 0.25 mg EVERY OTHER DAY PO 05/27/17 09:00 05/27/17 08:15 ([place] 5-325 Mg) 1 tab BID PRN PO 05/25/17 16:30 05/26/17 21:06 (Glucophage) 500 mg BIDPC PO 05/27/17 18:00 (Januvia) 100 mg DAILY PO 05/26/17 09:00 05/27/17 08:15 (Protonix) 20 mg DAILY PO 05/26/17 09:00 05/27/17 08:15 (Lipitor) 10 mg DAILY PO 05/26/17 09:00 05/27/17 08:15 (Pill Splitter) 1 ea UNSCH PRN OTHER 05/25/17 16:45 (Tums Chew) 500 mg Q2H PRN CHEW 05/25/17 20:30 05/25/17 20:48 (Pepcid) 20 mg DAILY PO 05/26/17 09:00 05/27/17 08:15 (Cardizem Cd) 240 mg DAILY PO 05/27/17 10:45 (Toprol Xl) 50 mg DAILY PO 05/27/17 10:45 (Prinivil) 2.5 mg DAILY PO 05/27/17 10:45 Vital Signs / I&O Vital Signs Date Time Temp Pulse Resp B/P (MAP) Pulse Ox O2 Delivery O2 Flow Rate FiO2 05/27/17 09:41 97.7 95 18 122/69 (86) 96 05/27/17 06:50 98.6 122 16 210/105 (140) 98 05/27/17 04:58 97.8 88 14 149/78 (101) 96 05/27/17 00:56 98.0 83 14 149/79 (102) 98 05/27/17 00:00 90 05/26/17 19:23 98.7 89 16 127/78 (94) 97 05/26/17 15:36 97.8 81 18 137/79 (98) 96 05/26/17 11:19 97.9 76 18 109/60 (76) 95 I/O 05/26/17 05/26/17 05/26/17 05/27/17 05/27/17 05/27/17 07:00 15:00 23:00 07:00 15:00 23:00 Intake Total 750 ml 720 ml Balance 750 ml 720 ml Intake Oral 750 ml 720 ml # Voids 2 3 1 Physical Exam GENERAL: In NAD SKIN: Warm and dry. HEAD: Normocephalic. EYES: No scleral icterus. No injection or drainage. NECK: Supple, trachea midline. No JVD or lymphadenopathy. CARDIOVASCULAR: Irregular rate, without murmurs, gallops, or rubs. RESPIRATORY: Breath sounds equal bilaterally. No accessory muscle use. GASTROINTESTINAL: Abdomen soft, non-tender, nondistended. MUSCULOSKELETAL: No cyanosis, trace edema. Laboratory Laboratory Tests Test 05/27/17 08:17 White Blood Count 8.4 TH/MM3 Red Blood Count 4.73 MIL/MM3 Hemoglobin 13.7 GM/DL Hematocrit 39.9 % Mean Corpuscular Volume 84.4 FL Mean Corpuscular Hemoglobin 29.0 PG Mean Corpuscular Hemoglobin Concent 34.4 % Red Cell Distribution Width 16.1 % Platelet Count 301 TH/MM3 Mean Platelet Volume 6.9 FL Neutrophils (%) (Auto) 63.8 % Lymphocytes (%) (Auto) 26.3 % Monocytes (%) (Auto) 8.2 % Eosinophils (%) (Auto) 1.2 % Basophils (%) (Auto) 0.5 % Neutrophils # (Auto) 5.4 TH/MM3 Lymphocytes # (Auto) 2.2 TH/MM3 Monocytes # (Auto) 0.7 TH/MM3 Eosinophils # (Auto) 0.1 TH/MM3 Basophils # (Auto) 0.0 TH/MM3 CBC Comment AUTO DIFF Differential Comment AUTO DIFF CONFIRMED Platelet Estimate NORMAL Platelet Morphology Comment NORMAL Blood Urea Nitrogen 30 MG/DL Creatinine 0.97 MG/DL Random Glucose 162 MG/DL Calcium Level 9.2 MG/DL Sodium Level 139 MEQ/L Potassium Level 4.0 MEQ/L Chloride Level 103 MEQ/L Carbon Dioxide Level 26.2 MEQ/L Anion Gap 10 MEQ/L Estimat Glomerular Filtration Rate 55 ML/MIN Total Creatine Kinase 27 U/L Troponin I 0.05 NG/ML Assessment and Plan Problem List: (1) Dyspnea ICD Codes: R06.00 - Dyspnea, unspecified (2) Chest pain ICD Codes: R07.9 - Chest pain Status: Acute (3) Elevated troponin ICD Codes: R74.8 - Abnormal levels of other serum enzymes Status: Acute (4) S/P ablation of atrial fibrillation ICD Codes: Z98.890 - Other specified postprocedural states; Z86.79 - Personal history of other diseases of the circulatory system Status: Acute (5) CAD (coronary artery disease) ICD Codes: I25.10 - Atherosclerotic heart disease of [place] coronary artery without angina pectoris Status: Acute (6) Hypertension ICD Codes: I10 - Hypertension Status: Chronic Assessment and Plan Parox AF w RVR. Start amio loading. Titrate antihypertensive tx. Echo w mild LV syst dysfx, mild LVH and PFO. Continue monitoring. No evidence of ACS. Increase activity. F/u w Dr. Metcalf as outpt. D/w Dr. Singh Problem Qualifiers (1) Chest pain: Qualified Codes: R07.89 - Other chest pain Mark Raza MD May 27, 2017 11:09
[2017-05-27] MEDS: METOPROLOL SUCCINATE 50 MG EXTENDED RELEASE TAB PO SCH (11:27)
[2017-05-27] MEDS: DILTIAZEM-CD 240 MG CAP ER PO SCH (11:27)
[2017-05-27] MEDS ORDERED: AMIODARONE 200 MG TAB PO ONE (11:30)
--- NOTE | 2017-05-27 15:25 | EKG ---
Date Performed: 05/27/2017 Time Performed: 06:56:35 PTAGE: 82 years EKG: ATRIAL FIBRILLATION WITH RAPID VENTRICULAR RESPONSE ST DEVIATION AND MODERATE T-WAVE ABNORM ALITY, CONSIDER LATERAL ISCHEMIA ABNORMAL ECG NO PREVIOUS TRACING DOCTOR: Robb Kaur Interpretating Date/Time 05/27/2017 15:23:14
[2017-05-27] MEDS: metFORMIN HCL 500 MG TAB PO SCH (16:59)
[2017-05-27] MEDS: AMIODARONE 200 MG TAB PO SCH (21:29)
[2017-05-27] MEDS: DIAZEPAM 2 MG TAB PO PRN (21:31)
[2017-05-28] VITALS (8 sets, daily range): BP systolic 90–141; BP diastolic 53–80; PULSE 48–80; RESP 16–20; TEMP 96.1–98; O2SAT 95–98
[2017-05-28] MEDS: CEPHALEXIN MONOHYDRATE 250 MG CAP PO SCH ×4 (06:10→21:00)
[2017-05-28] MEDS: ACETAMINOPHEN/HYDROcodone 325 MG/5 MG TAB PO PRN ×2 (06:13→22:26)
[2017-05-28] MEDS: FAMOTIDINE 20 MG TAB PO SCH (07:46)
[2017-05-28] MEDS: PANTOPRAZOLE SOD 20 MG DELAYED RELEASE TAB PO SCH (07:47)
[2017-05-28] MEDS: APIXABAN 5 MG TABLET PO SCH ×2 (07:47→21:01)
[2017-05-28] MEDS: AMIODARONE 200 MG TAB PO SCH ×2 (07:47→21:01)
[2017-05-28] MEDS: LISINOPRIL 10 MG TAB PO SCH (07:47)
[2017-05-28] MEDS: SODIUM CHLORIDE 0.9% FLUSH 10 ML FLUSH IV FLUSH SCH ×2 (07:48→21:01)
[2017-05-28] MEDS: ATORVASTATIN 10 MG TAB PO SCH (07:48)
[2017-05-28] MEDS: METOPROLOL SUCCINATE 50 MG EXTENDED RELEASE TAB PO SCH (07:48)
[2017-05-28] MEDS: DILTIAZEM-CD 240 MG CAP ER PO SCH (07:48)
[2017-05-28] MEDS: metFORMIN HCL 500 MG TAB PO SCH ×2 (07:48→17:09)
[2017-05-28] MEDS: INSULIN ASPART SUPPLEMENTAL SCALE SQ SCH ×4 (07:58→21:00)
--- NOTE | 2017-05-28 10:16 | PD.CARD.PN ---
Subjective Subjective Remarks No CP, less SOB, hallucinations last night, AF rate now controlled Objective Medications Current Medications Medications (Trade) Dose Ordered Sig/Ambika Route Start Time Stop Time Status Last Admin (NS Flush) 2 ml UNSCH PRN IV FLUSH 05/25/17 16:00 (NS Flush) 2 ml BID IV FLUSH 05/25/17 21:00 05/28/17 07:48 (Narcan Inj) 0.4 mg UNSCH PRN IV PUSH 05/25/17 16:00 (D50w (Vial) Inj) 50 ml UNSCH PRN IV PUSH 05/25/17 16:00 (Glucagon Inj) 1 mg UNSCH PRN OTHER 05/25/17 16:00 (NovoLOG SUPPLEMENTAL SCALE) 1 ACHS SLIDING SCALE SQ 05/25/17 17:00 05/28/17 07:58 (Eliquis) 5 mg BID PO 05/25/17 21:00 05/28/17 07:47 (Keflex) 250 mg Q6H PO 05/25/17 17:00 05/28/17 06:10 (Valium) 0.5 mg BID PRN PO 05/25/17 16:30 05/27/17 21:31 ([place] 5-325 Mg) 1 tab BID PRN PO 05/25/17 16:30 05/28/17 06:13 (Glucophage) 500 mg BIDPC PO 05/27/17 18:00 05/28/17 07:48 (Januvia) 100 mg DAILY PO 05/26/17 09:00 05/28/17 07:47 (Protonix) 20 mg DAILY PO 05/26/17 09:00 05/28/17 07:47 (Lipitor) 10 mg DAILY PO 05/26/17 09:00 05/28/17 07:48 (Pill Splitter) 1 ea UNSCH PRN OTHER 05/25/17 16:45 (Tums Chew) 500 mg Q2H PRN CHEW 05/25/17 20:30 05/25/17 20:48 (Pepcid) 20 mg DAILY PO 05/26/17 09:00 05/28/17 07:46 (Cardizem Cd) 240 mg DAILY PO 05/27/17 10:45 05/28/17 07:48 (Toprol Xl) 50 mg DAILY PO 05/27/17 10:45 05/28/17 07:48 (Prinivil) 10 mg DAILY PO 05/28/17 09:00 05/28/17 07:47 (Cordarone) 400 mg Q12HR PO 05/27/17 21:00 05/28/17 07:47 Vital Signs / I&O Vital Signs Date Time Temp Pulse Resp B/P (MAP) Pulse Ox O2 Delivery O2 Flow Rate FiO2 05/28/17 07:37 97.5 63 18 125/60 (81) 95 05/28/17 03:57 96.8 80 16 141/80 (100) 98 05/28/17 00:31 98.0 76 16 128/74 (92) 97 05/28/17 00:00 75 05/27/17 19:38 98.3 70 16 137/74 (95) 96 05/27/17 15:36 97.9 79 18 117/59 (78) 95 05/27/17 11:12 97.9 87 18 125/73 (90) 96 I/O 05/27/17 05/27/17 05/27/17 05/28/17 05/28/17 05/28/17 07:00 15:00 23:00 07:00 15:00 23:00 Intake Total 720 ml 720 ml Balance 720 ml 720 ml Intake Oral 720 ml 720 ml # Voids 1 2 3 Physical Exam GENERAL: In NAD SKIN: Warm and dry. HEAD: Normocephalic. EYES: No scleral icterus. No injection or drainage. NECK: Supple, trachea midline. No JVD or lymphadenopathy. CARDIOVASCULAR: Irregular rate, without murmurs, gallops, or rubs. RESPIRATORY: Breath sounds equal bilaterally. No accessory muscle use. GASTROINTESTINAL: Abdomen soft, non-tender, nondistended. MUSCULOSKELETAL: No cyanosis, trace edema. Assessment and Plan Problem List: (1) Dyspnea ICD Codes: R06.00 - Dyspnea, unspecified (2) Chest pain ICD Codes: R07.9 - Chest pain Status: Acute (3) Elevated troponin ICD Codes: R74.8 - Abnormal levels of other serum enzymes Status: Acute (4) S/P ablation of atrial fibrillation ICD Codes: Z98.890 - Other specified postprocedural states; Z86.79 - Personal history of other diseases of the circulatory system Status: Acute (5) CAD (coronary artery disease) ICD Codes: I25.10 - Atherosclerotic heart disease of [place] coronary artery without angina pectoris Status: Acute (6) Hypertension ICD Codes: I10 - Hypertension Status: Chronic Assessment and Plan Rate now better controlled. Will adjust amio dose. Titrate antihypertensive tx. Echo w mild LV syst dysfx, mild LVH and PFO. Continue monitoring. No evidence of ACS. Increase activity, if remains stable, d/c home tomorrow. F/u w Dr. Metcalf as outpt next week. Problem Qualifiers (1) Chest pain: Qualified Codes: R07.89 - Other chest pain Mark Raza MD May 28, 2017 10:16
--- NOTE | 2017-05-28 13:30 | HHI.PR ---
Subjective Remarks Follow up a-fib, dyspnea. Patient still reporting dyspnea. Still sleeping sitting up. No chest pain. Had hallucinations with full dose amiodarone yesterday, none today. Objective Vitals Vital Signs Date Time Temp Pulse Resp B/P (MAP) Pulse Ox O2 Delivery O2 Flow Rate FiO2 05/28/17 11:15 96.1 48 20 103/54 (70) 95 05/28/17 07:37 97.5 63 18 125/60 (81) 95 05/28/17 03:57 96.8 80 16 141/80 (100) 98 05/28/17 00:31 98.0 76 16 128/74 (92) 97 05/28/17 00:00 75 05/27/17 19:38 98.3 70 16 137/74 (95) 96 05/27/17 15:36 97.9 79 18 117/59 (78) 95 I/O 05/27/17 05/27/17 05/27/17 05/28/17 05/28/17 05/28/17 07:00 15:00 23:00 07:00 15:00 23:00 Intake Total 720 ml 720 ml Balance 720 ml 720 ml Intake Oral 720 ml 720 ml # Voids 1 2 3 Result Diagram: 05/27/17 0817 05/27/17 0817 Imaging Last Impressions Chest X-Ray 05/25/17 1228 Signed Impressions: Service Date/Time: Thursday, May 25, 2017 12:57 - CONCLUSION: 1. No infiltrate seen. No evidence of pleural effusion. 2. Increasing retrocardiac density suggesting enlargement in size of hiatus hernia. Matthieu Mcmanus MD Aorta CTA 05/25/17 0000 Signed Impressions: Service Date/Time: Thursday, May 25, 2017 14:57 - CONCLUSION: 1. Mild aneurysmal dilation of the aortic root, ascending aorta and aortic arch. There is no evidence of dissection. 2. The heart is enlarged. There is no pericardial effusion identified. There is no evidence of complication post cardiac ablation. Chris Phan MD Objective Remarks General: Elderly female in no acute distress. Heart: Irregular. Lungs: Mild crackles bilaterally. Breathing is nonlabored. Abdomen: Soft, nontender, nondistended. Extremities: No lower extremity edema. Psych: Alert and oriented. Procedures None Urinary Catheter: No Vascular Central Line Catheter: No A/P Assessment and Plan 1. Generalized body aches: Improved. Patient does report history of fibromyalgia. This may also be secondary to medication reaction from medication she was given following ablation. 2. Dyspnea: Improved. Echo shows EF 45-50%, patent foramen ovale, mild concentric LVH. Repeat CXR today. Add Lasix. 3. Atrial fibrillation: Status post ablation at [place]. Appreciate cardiology recommendations. Continue Eliquis, digoxin, metoprolol, diltiazem. Continue amiodarone per cardiology. 4. Hypertension: Blood pressure is well controlled. Continue home meds ( Toprol XL, Cardizem CD, lisinopril). 5. Diabetes mellitus: Monitor Accu-Cheks and cover with sliding scale insulin. Diabetic diet. 6. Coronary artery disease: Status post stent, CABG 3 years ago. Troponin was slightly elevated, but this was most likely secondary to ablation. Appreciate cardiology recommendations. Continue home medications. 7. Patent foramen ovale: Seen on echocardiogram. Appreciate cardiology recommendations. 8. DVT prophylaxis: Eliquis. Discharge Planning Possible discharge home tomorrow pending cardiology clearance. Parmjit Gordon MD May 28, 2017 13:30
[2017-05-28] MEDS: FUROSEMIDE 20 MG TAB PO SCH (13:43)
--- NOTE | 2017-05-28 14:31 | RADRPT ---
EXAM DATE/TIME: 05/28/2017 14:16 [facility] COMPARISON: CHEST PA & LAT, May 25, 2017, 12:57. INDICATIONS : Dyspnea. Bilateral axillary soreness. MEDICAL HISTORY : Stroke. Hypertension Diabetes. SURGICAL HISTORY : Hysterectomy. Appendectomy. Cholecystectomy. ENCOUNTER: Initial ACUITY: 1 day PAIN SCORE: 2/10 LOCATION: Bilateral chest FINDINGS: The heart is enlarged. The patient is post median sternotomy. The lungs demonstrate chronic appearing interstitial changes but are otherwise clear. There is no pleural effusion. CONCLUSION: 1. Cardiomegaly and chronic interstitial changes. Stable compared to previous examination. Chris Phan MD on May 28, 2017 at 14:28 Board Certified Radiologist. This report was verified electronically.
[2017-05-29] VITALS: BP 121/64; PULSE 55; RESP 18; TEMP 98; O2SAT 97
[2017-05-29 04:00] VITALS: BP 157/84; PULSE 74; RESP 17; TEMP 97.8; O2SAT 94
[2017-05-29] MEDS: CEPHALEXIN MONOHYDRATE 250 MG CAP PO SCH ×2 (05:18→11:57)
[2017-05-29] MEDS: SODIUM CHLORIDE 0.9% FLUSH 10 ML FLUSH IV FLUSH SCH (05:18)
[2017-05-29 06:14] LABS: CALCIUM 8.7 MG/DL (8.5-10.1); CREATININE 1.66 MG/DL (0.50-1.00)
[2017-05-29 08:00] VITALS: PULSE 75
[2017-05-29] MEDS: INSULIN ASPART SUPPLEMENTAL SCALE SQ SCH (08:00)
[2017-05-29] MEDS: AMIODARONE 200 MG TAB PO SCH (08:02)
[2017-05-29] MEDS: LISINOPRIL 10 MG TAB PO SCH (08:03)
[2017-05-29] MEDS: PANTOPRAZOLE SOD 20 MG DELAYED RELEASE TAB PO SCH (08:03)
[2017-05-29] MEDS: METOPROLOL SUCCINATE 50 MG EXTENDED RELEASE TAB PO SCH (08:03)
[2017-05-29] MEDS: FUROSEMIDE 20 MG TAB PO SCH (08:03)
[2017-05-29] MEDS: DILTIAZEM-CD 240 MG CAP ER PO SCH (08:03)
[2017-05-29] MEDS: metFORMIN HCL 500 MG TAB PO SCH (08:03)
[2017-05-29] MEDS: APIXABAN 5 MG TABLET PO SCH (08:04)
[2017-05-29] MEDS: FAMOTIDINE 20 MG TAB PO SCH (08:04)
[2017-05-29 08:31] VITALS: BP 146/67; PULSE 70; TEMP 98.2; O2SAT 96
[2017-05-29] MEDS ORDERED: POTASSIUM CHLORIDE 10 MEQ CONTROLLED RELEASE TAB PO SCH (09:00)
--- NOTE | 2017-05-29 11:00 | HHI.PR ---
Subjective Remarks Follow up a-fib. Patient still with dyspnea, dry cough. No chest pain, lightheadedness. No more hallucinations. Objective Vitals Vital Signs Date Time Temp Pulse Resp B/P (MAP) Pulse Ox O2 Delivery O2 Flow Rate FiO2 05/29/17 08:31 98.2 70 146/67 (93) 96 05/29/17 04:00 97.8 74 17 157/84 (108) 94 05/29/17 00:00 98.0 55 18 121/64 (83) 97 05/28/17 23:39 18 05/28/17 20:20 97.7 58 18 114/60 (78) 95 05/28/17 17:16 62 106/61 (76) 05/28/17 15:44 97.7 52 18 90/53 (65) 95 05/28/17 11:15 96.1 48 20 103/54 (70) 95 I/O 05/28/17 05/28/17 05/28/17 05/29/17 05/29/17 05/29/17 07:00 15:00 23:00 07:00 15:00 23:00 Intake Total 720 ml Output Total 400 ml Balance 720 ml -400 ml Intake Oral 720 ml Output Urine Total 400 ml # Voids 3 4 Result Diagram: 05/27/17 0817 05/29/17 0402 Imaging Last Impressions Chest X-Ray 05/28/17 0000 Signed Impressions: Service Date/Time: May 14:16 - CONCLUSION: 1. Cardiomegaly and chronic interstitial changes. Stable compared to previous examination. Chris Phan MD Aorta CTA 05/25/17 0000 Signed Impressions: Service Date/Time: Thursday, May 25, 2017 14:57 - CONCLUSION: 1. Mild aneurysmal dilation of the aortic root, ascending aorta and aortic arch. There is no evidence of dissection. 2. The heart is enlarged. There is no pericardial effusion identified. There is no evidence of complication post cardiac ablation. Chris Phan MD Objective Remarks General: Elderly female in no acute distress. Heart: Irregular. Lungs: Clear to auscultation bilaterally. Breathing is nonlabored. Abdomen: Soft, nontender, nondistended. Extremities: No lower extremity edema. Psych: Alert and oriented. Procedures None Urinary Catheter: No Vascular Central Line Catheter: No A/P Assessment and Plan 1. Generalized body aches: Improved. Patient does report history of fibromyalgia. This may also be secondary to medication reaction from medication she was given following ablation. 2. Dyspnea: Echo shows EF 45-50%, patent foramen ovale, mild concentric LVH. CXR shows no evidence of fluid overload. 3. Atrial fibrillation: Status post ablation at [place]. Appreciate cardiology recommendations. Continue Eliquis, digoxin, metoprolol, diltiazem. Continue amiodarone per cardiology. 4. Hypertension: Blood pressure is well controlled. Continue home meds ( Toprol XL, Cardizem CD, lisinopril). 5. Diabetes mellitus: Monitor Accu-Cheks and cover with sliding scale insulin. Diabetic diet. 6. Coronary artery disease: Status post stent, CABG 3 years ago. Troponin was slightly elevated, but this was most likely secondary to ablation. Appreciate cardiology recommendations. Continue home medications. 7. Patent foramen ovale: Seen on echocardiogram. Appreciate cardiology recommendations. 8. DVT prophylaxis: Eliquis. 9. Acute kidney injury: Creatinine elevated today. Likely secondary to Lasix. Will stop Lasix and monitor BUN/creatinine. Discharge Planning Possible discharge home later today pending cardiology clearance. Parmjit Gordon MD May 29, 2017 11:00
[2017-05-29 11:27] VITALS: BP 140/60; PULSE 70; RESP 20; TEMP 98.2; O2SAT 96
[2017-05-29] MEDS ORDERED: BISACODYL 10 MG SUPP RECTAL PRN (11:30)
[2017-05-29] MEDS ORDERED: SENNOSIDES 8.6 MG TAB PO PRN (11:30)
[2017-05-29] MEDS ORDERED: MAGNESIUM HYDROXIDE SUSP 30 ML CUP PO PRN (11:30)
[2017-05-29] MEDS: ATORVASTATIN 10 MG TAB PO SCH (11:57)
[2017-05-29] MEDS ORDERED: DOCUSATE SODIUM 50 MG/SENNA 8.6 MG TAB PO SCH (12:00)
--- NOTE | 2017-05-29 12:25 | PD.CARD.PN ---
Subjective Subjective Remarks No CP or significant SOB, rate controlled, nausea likely related to amio Objective Medications Current Medications Medications (Trade) Dose Ordered Sig/Ambika Route Start Time Stop Time Status Last Admin (NS Flush) 2 ml UNSCH PRN IV FLUSH 05/25/17 16:00 05/29/17 08:03 (NS Flush) 2 ml BID IV FLUSH 05/25/17 21:00 05/29/17 05:18 (Narcan Inj) 0.4 mg UNSCH PRN IV PUSH 05/25/17 16:00 (D50w (Vial) Inj) 50 ml UNSCH PRN IV PUSH 05/25/17 16:00 (Glucagon Inj) 1 mg UNSCH PRN OTHER 05/25/17 16:00 (NovoLOG SUPPLEMENTAL SCALE) 1 ACHS SLIDING SCALE SQ 05/25/17 17:00 05/28/17 17:00 (Eliquis) 5 mg BID PO 05/25/17 21:00 05/29/17 08:04 (Keflex) 250 mg Q6H PO 05/25/17 17:00 05/29/17 11:57 (Valium) 0.5 mg BID PRN PO 05/25/17 16:30 05/27/17 21:31 ([place] 5-325 Mg) 1 tab BID PRN PO 05/25/17 16:30 05/28/17 22:26 (Glucophage) 500 mg BIDPC PO 05/27/17 18:00 05/29/17 08:03 (Januvia) 100 mg DAILY PO 05/26/17 09:00 05/29/17 08:03 (Protonix) 20 mg DAILY PO 05/26/17 09:00 05/29/17 08:03 (Lipitor) 10 mg DAILY PO 05/26/17 09:00 05/29/17 11:57 (Pill Splitter) 1 ea UNSCH PRN OTHER 05/25/17 16:45 (Tums Chew) 500 mg Q2H PRN CHEW 05/25/17 20:30 05/25/17 20:48 (Pepcid) 20 mg DAILY PO 05/26/17 09:00 05/29/17 08:04 (Cardizem Cd) 240 mg DAILY PO 05/27/17 10:45 05/29/17 08:03 (Toprol Xl) 50 mg DAILY PO 05/27/17 10:45 05/29/17 08:03 (Prinivil) 10 mg DAILY PO 05/28/17 09:00 05/29/17 08:03 (Cordarone) 200 mg Q12HR PO 05/28/17 21:00 05/29/17 08:02 (Audrey-Colace) 1 tab BID PO 05/29/17 12:00 (Milk Of Magnesia Liq) 30 ml Q12H PRN PO 05/29/17 11:30 (Senokot) 17.2 mg Q12H PRN PO 05/29/17 11:30 05/29/17 11:57 (Dulcolax Supp) 10 mg DAILY PRN RECTAL 05/29/17 11:30 Vital Signs / I&O Vital Signs Date Time Temp Pulse Resp B/P (MAP) Pulse Ox O2 Delivery O2 Flow Rate FiO2 05/29/17 11:27 98.2 70 20 140/60 (86) 96 05/29/17 08:31 98.2 70 146/67 (93) 96 05/29/17 08:00 75 05/29/17 04:00 97.8 74 17 157/84 (108) 94 05/29/17 00:00 98.0 55 18 121/64 (83) 97 05/28/17 23:39 18 05/28/17 20:20 97.7 58 18 114/60 (78) 95 05/28/17 17:16 62 106/61 (76) 05/28/17 15:44 97.7 52 18 90/53 (65) 95 I/O 05/28/17 05/28/17 05/28/17 05/29/17 05/29/17 05/29/17 07:00 15:00 23:00 07:00 15:00 23:00 Intake Total 720 ml Output Total 400 ml Balance 720 ml -400 ml Intake Oral 720 ml Output Urine Total 400 ml # Voids 3 4 Physical Exam GENERAL: In NAD SKIN: Warm and dry. HEAD: Normocephalic. EYES: No scleral icterus. No injection or drainage. NECK: Supple, trachea midline. No JVD or lymphadenopathy. CARDIOVASCULAR: Irregular rate, controlled, without murmurs, gallops, or rubs. RESPIRATORY: Breath sounds equal bilaterally. No accessory muscle use. GASTROINTESTINAL: Abdomen soft, non-tender, nondistended. MUSCULOSKELETAL: No cyanosis, trace edema. Laboratory Laboratory Tests Test 05/29/17 04:02 Blood Urea Nitrogen 42 MG/DL Creatinine 1.66 MG/DL Random Glucose 130 MG/DL Calcium Level 8.7 MG/DL Sodium Level 137 MEQ/L Potassium Level 4.3 MEQ/L Chloride Level 101 MEQ/L Carbon Dioxide Level 25.0 MEQ/L Anion Gap 11 MEQ/L Estimat Glomerular Filtration Rate 30 ML/MIN Assessment and Plan Problem List: (1) Dyspnea ICD Codes: R06.00 - Dyspnea, unspecified (2) Chest pain ICD Codes: R07.9 - Chest pain Status: Acute (3) Elevated troponin ICD Codes: R74.8 - Abnormal levels of other serum enzymes Status: Acute (4) S/P ablation of atrial fibrillation ICD Codes: Z98.890 - Other specified postprocedural states; Z86.79 - Personal history of other diseases of the circulatory system Status: Acute (5) CAD (coronary artery disease) ICD Codes: I25.10 - Atherosclerotic heart disease of [place] coronary artery without angina pectoris Status: Acute (6) Hypertension ICD Codes: I10 - Hypertension Status: Chronic Assessment and Plan Rate well controlled. Continue low dose amio loading, nausea will improve once on maintenance dose. Continue antihypertensive tx. Echo w mild LV syst dysfx, mild LVH and PFO. No evidence of ACS. D/c home. F/u w Dr. Metcalf scheduled on Thu. Problem Qualifiers (1) Chest pain: Qualified Codes: R07.89 - Other chest pain Mark Raza MD May 29, 2017 12:25
[2017-05-29] MEDS ORDERED: AMIO200T PO (12:27)
--- NOTE | 2017-05-29 12:29 | HHI.DCPOC ---
Discharge Care Plan Diagnosis: (1) Acute kidney injury (2) Dyspnea (3) Hypertension (4) CAD (coronary artery disease) (5) Elevated troponin Goals to Promote Your Health * To prevent worsening of your condition and complications * To maintain your health at the optimal level Directions to Meet Your Goals Take your medications as prescribed Follow your dietary instruction Follow activity as directed Keep your appointments as scheduled Take your immunizations and boosters as scheduled If your symptoms worsen call your PCP, if no PCP go to Urgent Care Center or Emergency Room Smoking is Dangerous to Your Health. Avoid second hand smoke Call the 24-hour hour crisis hotline for domestic abuse at Parmjit Gordon MD May 29, 2017 12:29
--- NOTE | 2017-05-29 12:34 | HHI.DS ---
Discharge Summary Admission Date May 25, 2017 at 15:53 Discharge Date: May 29, 2017 Admitting Diagnosis elevated troponin, chest tightness (1) Acute kidney injury ICD Code: N17.9 - Acute kidney failure, unspecified (2) Hypertension ICD Code: I10 - Hypertension Status: Chronic (3) CAD (coronary artery disease) ICD Code: I25.10 - Atherosclerotic heart disease of [place] coronary artery without angina pectoris Status: Acute (4) Dyspnea ICD Code: R06.00 - Dyspnea, unspecified (5) Diabetes mellitus ICD Code: E11.9 - Diabetes mellitus Status: Chronic (6) Paroxysmal a-fib ICD Code: I48.0 - Paroxysmal atrial fibrillation Status: Acute Procedures None Brief History - From Admission hx from patient, ER PA and review of med records on thursday, had ablation at [facility] was given tikosyn was supposed to stay 3 days but was dc on thursday night had pains all over body- was told it was normal last night, could not sleep- had to sit up and sleep and thus called [facility] in am and was told to come to er by nurse because [facility] material analyst was away on vacation called her material analyst here Dr Charlton who is also on vacation could not breathe, could not lie down, which was why she had to sit up to sleep no chest pain when taking a deep breath but cant take a deep breath cabg was 3 yrs ago on eliquis for anticoagulation- compliant with it had a "tube from throat" during procedure for ablation- stated was under general anesthesia because her ablation was complicated procedure now has some soar throat as well CBC/BMP: 05/27/17 0817 05/29/17 0402 Significant Findings Laboratory Tests Test 05/27/17 08:17 05/29/17 04:02 Mean Platelet Volume 6.9 FL (7.0-11.0) Monocytes (%) (Auto) 8.2 % (0.0-8.0) Blood Urea Nitrogen 30 MG/DL (7-18) 42 MG/DL (7-18) Random Glucose 162 MG/DL (74-106) 130 MG/DL (74-106) Estimat Glomerular Filtration Rate 55 ML/MIN (>89) 30 ML/MIN (>89) Creatinine 1.66 MG/DL (0.50-1.00) Imaging Last Impressions Chest X-Ray 05/28/17 0000 Signed Impressions: Service Date/Time: May 14:16 - CONCLUSION: 1. Cardiomegaly and chronic interstitial changes. Stable compared to previous examination. Chris Phan MD Aorta CTA 05/25/17 0000 Signed Impressions: Service Date/Time: Thursday, May 25, 2017 14:57 - CONCLUSION: 1. Mild aneurysmal dilation of the aortic root, ascending aorta and aortic arch. There is no evidence of dissection. 2. The heart is enlarged. There is no pericardial effusion identified. There is no evidence of complication post cardiac ablation. Chris Phan MD PE at Discharge General: Elderly female in no acute distress. Heart: Irregular. Lungs: Clear to auscultation bilaterally. Breathing is nonlabored. Abdomen: Soft, nontender, nondistended. Extremities: No lower extremity edema. Psych: Alert and oriented. Hospital Course Patient was admitted for management of generalized body aches, dyspnea. Troponin elevation was felt to be nonspecific. Cardiology was consulted. She was placed on amiodarone for control of atrial fibrillation. She developed some hallucinations and the amiodarone dose was decreased. Heart rate control improved. Patient continued to have dyspnea. Chest x-ray showed no evidence of fluid overload. She was cleared for discharge by cardiology. She developed acute kidney injury, felt to be secondary to Lasix. Diuretics were discontinued and the patient was advised to have repeat labs done as an outpatient on Thursday. She was also advised to follow-up with her material analyst on Thursday. Pt Condition on Discharge: Stable Discharge Disposition: Discharge Home Discharge Time: <= 30 minutes Discharge Instructions DIET: Follow Instructions for: Heart Healthy Diet, Diabetic Diet Activities you can perform: Regular-No Restrictions Follow up Referrals: Cardiology - 06/01/17 with Kain Metcalf MD PCP Follow-up - 1 Week New Orders: BASIC METABOLIC PROF - 06/01/17 New Medications: Amiodarone (Amiodarone) 200 Mg Tab 200 MG PO Q12HR for a-fib, #30 TAB 0 Refills 200mg BID x 10 days, then 200mg daily Continued Medications: Apixaban (Eliquis) 5 Mg Tab 5 MG PO BID for Blood Clot Prevention, #60 TAB 0 Refills Cephalexin (Cephalexin) 250 Mg Tab 250 MG PO Q6H for Infection, TAB 0 Refills Diazepam (Diazepam) 2 Mg Tab 0.5 MG PO BID PRN for ANXIETY, TAB 0 Refills Diltiazem CD 24 HR (Diltiazem CD 24 HR) 240 Mg Caper 240 MG PO DAILY, #30 CAP 0 Refills Hydrocodone-Acetaminophen (Hydrocodone-Acetaminophen) 5-325 mg Tab 1 TAB PO BID PRN for PAIN, TAB 0 Refills Lisinopril (Lisinopril) 2.5 Mg Tab 2.5 MG PO DAILY, #30 TAB 0 Refills Metoprolol Succinate ER 24 HR (Metoprolol Succinate ER 24 HR) 50 Mg Tab 50 MG PO DAILY, #30 TAB 0 Refills Omeprazole (Omeprazole) 20 Mg Tab 20 MG PO DAILY, #30 TAB 0 Refills Rosuvastatin (Rosuvastatin) 5 Mg Tab 5 MG PO DAILY for Cholesterol Management, #30 TAB 0 Refills Sitagliptin (Januvia) 100 Mg Tab 100 MG PO DAILY for Blood Sugar Management, #30 TAB 0 Refills Discontinued Medications: Digoxin (Digitek) 0.25 Mg Tab 0.25 MG PO EVERY OTHER DAY for Regulate Heart Beat, #30 TAB 0 Refills Digoxin (Digitek) 0.25 Mg Tab 0.125 MG PO EVERY OTHER DAY for Regulate Heart Beat, #30 TAB 0 Refills Metformin (Metformin) 500 Mg Tab 500 MG PO BIDPC for Blood Sugar Management, #60 TAB 0 Refills Parmjit Gordon MD May 29, 2017 12:34
== END 2017-05-29 14:53 | disposition home or self-care (01) ==
LOC: NEPC 12:21 → NEDA 15:53 → NEPGCP 16:48
PROVIDERS: ADMIT Family Medicine; ATTEND Family Medicine
DX: R07.89 Other chest pain (principal); R74.8 Abnormal levels of other serum enzymes; R52 Pain, unspecified; R06.00 Dyspnea, unspecified; R06.02 Shortness of breath; J02.9 Acute pharyngitis, unspecified; R13.10 Dysphagia, unspecified; I25.10 Atherosclerotic heart disease of native coronary artery without angina pectoris; I11.9 Hypertensive heart disease without heart failure; E11.9 Type 2 diabetes mellitus without complications; I77.810 Thoracic aortic ectasia; I44.0 Atrioventricular block, first degree; R94.31 Abnormal electrocardiogram [ECG] [EKG]; I49.3 Ventricular premature depolarization; I48.0 Paroxysmal atrial fibrillation; I25.2 Old myocardial infarction; E78.5 Hyperlipidemia, unspecified; J45.909 Unspecified asthma, uncomplicated; D68.2 Hereditary deficiency of other clotting factors; I71.00 Dissection of unspecified site of aorta; K58.9 Irritable bowel syndrome, unspecified; M79.7 Fibromyalgia; K21.9 Gastro-esophageal reflux disease without esophagitis; F41.0 Panic disorder [episodic paroxysmal anxiety]; M19.90 Unspecified osteoarthritis, unspecified site; Z86.711 Personal history of pulmonary embolism; Z79.01 Long term (current) use of anticoagulants; Z95.5 Presence of coronary angioplasty implant and graft; Z95.1 Presence of aortocoronary bypass graft; Z88.5 Allergy status to narcotic agent; Z96.653 Presence of artificial knee joint, bilateral; Z86.73 Personal history of transient ischemic attack (TIA), and cerebral infarction without residual deficits; Z79.899 Other long term (current) drug therapy
CPT/HCPCS: 71045; 71046; 71275; 74174; 80048; 82550; 82948; 83735; 83880; 84484; 85025; 85610; 85730; 93005; 93306; 96372; 96374; 97161; 99285; G0378; G8987; G8988; G8989; J1815; J1940; Q9967

== ENCOUNTER 2017-08-05 18:11 | Emergency (ER) | payer MEDICARE, BC ==
[~2017-08-05] VITALS: Ht 157.5 cm; Wt 75.0 kg
[~2017-08-05 18:11] MED LIST changes: +AMIO200T PO; -AMLO2.5T PO; -CARD120C4 PO; +CEPH250T PO; -CLON.1 PO; +DIAZ2TAB PO; -DIGO1TAB61 PO; +DILT240C44 PO; +LISI2.5T3 PO; +METO1TAB9 PO; -METO25TA3 PO; +OMEP20TA93 PO; +ROSU1TAB4 PO
[2017-08-05 18:18] VITALS: BP 170/101; PULSE 79; RESP 20; TEMP 101.1; O2SAT 93
--- NOTE | 2017-08-05 19:14 | PD ---
HPI Chief Complaint: Cold / Flu Symptoms Time Seen by Provider: 18:53 Travel History International Travel<30 days: No Contact w/Intl Traveler<30days: No Traveled to known affect area: No History of Present Illness HPI 82-year-old female with PMH of factor V Leiden deficiency, CAD status post CABG , hypertension, DM on Eliquis presents to the ED for evaluation of 10 day history of nonproductive cough, fevers, sinus congestion, clear rhinorrhea. She endorses pleuritic chest pain. She denies palpitations, shortness of breath , abdominal pain, nausea, vomiting, dysuria, hematuria, back pain. She saw her primary care provider 2 days ago and was provided with azithromycin with no improvement of symptoms. She measured a temperature 101-102 at home. She did not take anything to bring down the fever "because of my bleeding problems." She endorses receiving the flu shot this year. PFSH Past Medical History Hx Anticoagulant Therapy: Yes Arthritis: Yes Asthma: No Atrial Fibrillation: Yes Autoimmune Disease: Yes (arthritis) Blood Disorders: Yes (factor 5 ) Anxiety: Yes (Panic attacks ) Depression: No Heart Rhythm Problems: Yes (A-FIB) Cancer: No Cardiac Catheterization: Yes Cardiovascular Problems: Yes High Cholesterol: Yes Chemotherapy: No Chest Pain: Yes Congestive Heart Failure: No COPD: No Cerebrovascular Accident: Yes Diabetes: Yes Patient Takes Glucophage: No Diminished Hearing: No Endocrine: No Gastrointestinal Disorders: Yes (reflux, hital hernia) GERD: Yes Genitourinary: No Headaches: No Hiatal Hernia: No Heparin Induced Thrombocytopen: No Hypertension: Yes Immune Disorder: Yes (Chronic fatigue) Implanted Vascular Access Dvce: Yes Insomnia: Yes Kidney Stones: No Musculoskeletal: Yes (fibromyalgia) Neurologic: No Psychiatric: No Reproductive: No Respiratory: Yes Immunizations Current: Yes Migraines: No Myocardial Infarction: Yes (2003) Radiation Therapy: No Renal Failure: No Seizures: No Sleep Apnea: No Thyroid Disease: No Ulcer: No Tetanus Vaccination: > 5 Years Influenza Vaccination: Yes Menopausal: Yes : 2 Para: 2 Miscarriage: 0 : 0 Past Surgical History Abdominal Surgery: Yes (appendectomy) AICD: No Appendectomy: Yes Arteriovenous Shunt: No Body Medical Devices: Knee replacements Cardiac Surgery: Yes (two stent placements) Cholecystectomy: Yes Coronary Artery Bypass Graft: Yes Coronary Stent: Yes Ear Surgery: No Endocrine Surgery: No Eye Surgery: Yes (cataract surgery 2013) Genitourinary Surgery: No Gynecologic Surgery: Yes (hysterectomy) Hysterectomy: Yes Insulin Pump: No Joint Replacement: Yes (bilat knees) Neurologic Surgery: No Oral Surgery: No Pacemaker: No Thoracic Surgery: No Tonsillectomy: Yes Other Surgery: Yes (SD, appendix, gallbladder, both Knees replaced) Family History Family Myocardial Infarction: Yes Social History Alcohol Use: No Tobacco Use: No Substance Use: No Allergies-Medications (Allergen,Severity, Reaction): Coded Allergies: Sulfa (Sulfonamide Antibiotics) (Unverified Allergy, Severe, 08/05/17) nitrofurantoin (Unverified Allergy, Severe, 08/05/17) penicillin G (Unverified Allergy, Unknown, 08/05/17) Reported Meds & Prescriptions Reported Meds & Active Scripts Active Amiodarone (Amiodarone HCl) 200 Mg Tab 200 Mg PO Q12HR 200mg BID x 10 days, then 200mg daily Reported Diltiazem CD 24 HR 240 Mg Caper 240 Mg PO DAILY Metoprolol Succinate ER 24 HR (Metoprolol Succinate) 50 Mg Tab 50 Mg PO DAILY Omeprazole 20 Mg Tab 20 Mg PO DAILY Lisinopril 2.5 Mg Tab 2.5 Mg PO DAILY Rosuvastatin (Rosuvastatin Calcium) 5 Mg Tab 5 Mg PO DAILY Diazepam 2 Mg Tab 0.5 Mg PO BID PRN Cephalexin 250 Mg Tab 250 Mg PO Q6H Eliquis (Apixaban) 5 Mg Tab 5 Mg PO BID Hydrocodone-Acetaminophen 5-325 mg Tab 1 Tab PO BID PRN Januvia (Sitagliptin Phosphate) 100 Mg Tab 100 Mg PO DAILY Review of Systems Except as stated in HPI: all other systems reviewed are Neg Physical Exam Narrative GENERAL: Well-nourished, well-developed white female in NAD. SKIN: Focused skin assessment warm/dry. HEAD: Normocephalic. EYES: No scleral icterus. No injection or drainage. NECK: Supple, trachea midline. No JVD or lymphadenopathy. CARDIOVASCULAR: Regular rate and rhythm without murmurs, gallops, or rubs. RESPIRATORY: Breath sounds clear and equal bilaterally. No accessory muscle use. GASTROINTESTINAL: Abdomen soft, non-tender, nondistended. MUSCULOSKELETAL: No cyanosis, or edema. BACK: Nontender without obvious deformity. No CVA tenderness. Data Data Last Documented VS Vital Signs Date Time Temp Pulse Resp B/P (MAP) Pulse Ox O2 Delivery O2 Flow Rate FiO2 08/05/17 20:42 99.6 08/05/17 20:22 16 08/05/17 19:49 73 97 Nasal Cannula 2.00 Orders Orders Complete Blood Count With Diff (08/05/17:) Comprehensive Metabolic Panel (08/05/17:) Act Partial Throm Time (Ptt) (08/05/17:) Prothrombin Time / Inr (Pt) (08/05/17:) Urinalysis - C+S If Indicated (08/05/17:) Influenzae A/B Antigen (08/05/17:) Blood Culture (08/05/17:) Iv Access Insert/Monitor (08/05/17:) Electrocardiogram (08/05/17:) Ecg Monitoring (08/05/17:) Oximetry (08/05/17:) Chest, Single Ap (08/05/17:) Sodium Chloride 0.9% Flush (Ns Flush) (08/05/17 19:15) Acetaminophen (Tylenol) (08/05/17 19:15) Sodium Chlor 0.9% 1000 Ml Inj (Ns 1000 M (08/05/17 19:15) Oxygen Administration (08/05/17 19:03) Urine Culture (08/05/17 19:30) Levofloxacin 500 Mg Premix Inj (Levaquin (08/05/17 20:45) Admit Order (Ed Use Only) (08/05/17 20:40) Labs Laboratory Tests Test 08/05/17 19:30 White Blood Count 5.7 TH/MM3 Red Blood Count 5.24 MIL/MM3 Hemoglobin 14.7 GM/DL Hematocrit 44.0 % Mean Corpuscular Volume 84.1 FL Mean Corpuscular Hemoglobin 28.1 PG Mean Corpuscular Hemoglobin Concent 33.5 % Red Cell Distribution Width 17.1 % Platelet Count 201 TH/MM3 Mean Platelet Volume 7.3 FL Neutrophils (%) (Auto) 67.8 % Lymphocytes (%) (Auto) 20.7 % Monocytes (%) (Auto) 10.2 % Eosinophils (%) (Auto) 1.1 % Basophils (%) (Auto) 0.2 % Neutrophils # (Auto) 3.9 TH/MM3 Lymphocytes # (Auto) 1.2 TH/MM3 Monocytes # (Auto) 0.6 TH/MM3 Eosinophils # (Auto) 0.1 TH/MM3 Basophils # (Auto) 0.0 TH/MM3 CBC Comment DIFF FINAL Differential Comment Prothrombin Time 10.5 SEC Prothromb Time International Ratio 1.0 RATIO Activated Partial Thromboplast Time 27.5 SEC Urine Color YELLOW Urine Turbidity CLEAR Urine pH 6.0 Urine Specific [place] 1.011 Urine Protein TRACE mg/dL Urine Glucose (UA) NEG mg/dL Urine Ketones NEG mg/dL Urine Occult Blood TRACE Urine Nitrite NEG Urine Bilirubin NEG Urine Urobilinogen LESS THAN 2.0 MG/DL Urine Leukocyte Esterase SMALL Urine RBC 7 /hpf Urine WBC 17 /hpf Urine Squamous Epithelial Cells 1 /hpf Urine Bacteria MOD /hpf Microscopic Urinalysis Comment CULTURE INDICATED Blood Urea Nitrogen 17 MG/DL Creatinine 0.99 MG/DL Random Glucose 110 MG/DL Total Protein 7.4 GM/DL Albumin 3.7 GM/DL Calcium Level 9.0 MG/DL Alkaline Phosphatase 64 U/L Aspartate Amino Transf (AST/SGOT) 23 U/L Alanine Aminotransferase (ALT/SGPT) 26 U/L Total Bilirubin 0.5 MG/DL Sodium Level 133 MEQ/L Potassium Level 4.0 MEQ/L Chloride Level 99 MEQ/L Carbon Dioxide Level 23.9 MEQ/L Anion Gap 10 MEQ/L Estimat Glomerular Filtration Rate 54 ML/MIN MDM Medical Decision Making Medical Screen Exam Complete: Yes Emergency Medical Condition: Yes Differential Diagnosis Pneumonia versus influenza versus viral syndrome versus UTI versus other Narrative Course 82-year-old female with PMH of factor V Leiden deficiency, CAD status post CABG , hypertension, DM on Eliquis presents to the ED for evaluation of 10 day history of nonproductive cough, fevers, sinus congestion, clear rhinorrhea, pleuritic chest pain. Taking azithromycin prescribed by the PCP 2 days ago. She is not oxygen dependent at home. Temp 101.1, O2 saturations 93% on room air on presentation. On exam this is a white female in no acute distress. Breath sounds are clear and equal bilaterally. Abdomen soft nontender. No lower extremity edema. IV was established. Patient was administered 650 of Tylenol and 1 L normal saline. O2 sats improved to 97% on 2 L by nasal cannula. EKG: Rate 76, sinus rhythm. Normal intervals. No acute ST changes. Reviewed by Dr. Servin CXR: Minimal bibasilar densities per radiology read. CBC: No leukocytosis or anemia. INR: 1.0. CMP: BUN 17, creatinine 0.99. UA: Small leukocyte esterase, 17 WBCs, moderate bacteria. Culture pending. I discussed the patient and workup with Dr. Servin. She recommends administering IV Levaquin with observation overnight. The patient does not wish to be admitted to the hospital for treatment. She has close follow up with the PCP. I think she is reliable for follow up. She is prescribed Levaquin 750 milligrams daily 5 days. First dose administered in the ED. She instructed to return to the ED for worsening symptoms. She indicated understanding of the instructions and is agreeable to care plan. She is stable discharged home. Sepsis Criteria SIRS Criteria (2 or more): Temp > 100.9 or < 96.8 Diagnosis Primary Impression: Urinary tract infection Qualified Codes: N39.0 - Urinary tract infection, site not specified Referrals: Primary Care Physician Additional Instructions: Rest, hydrate. Begin antibiotics tomorrow and take them until every dose is gone. Follow with your primary care provider as discussed. Return to the ED for worsening symptoms or any urgent or emergent medical condition. Med/Other Pt SpecificInfo: Prescription(s) given Disposition: 01 DISCHARGE HOME Condition: Stable Alda Kevin August 05, 2017 19:14
[2017-08-05] MEDS ORDERED: ACETAMINOPHEN 325 MG TAB PO ONE (19:15)
[2017-08-05] MEDS ORDERED: SODIUM CHLORIDE 0.9% FLUSH 10 ML FLUSH IVF PRN (19:15)
[2017-08-05] MEDS ORDERED: SODIUM CHLOR 0.9% 1000 ML INJ 1,000 ML IV ONE (19:15)
[2017-08-05 19:49] VITALS: BP 147/65; PULSE 73; RESP 18; O2SAT 97
--- NOTE | 2017-08-05 19:58 | RADRPT ---
EXAM DATE/TIME: 08/05/2017 19:38 [facility] COMPARISON: CHEST SINGLE AP, May 28, 2017, 14:16. INDICATIONS : Short of breath. MEDICAL HISTORY : Chronic obstructive pulmonary disease. SURGICAL HISTORY : CABG. ENCOUNTER: Initial ACUITY: 1 day PAIN SCORE: 0/10 LOCATION: Bilateral chest FINDINGS: A single view of the chest demonstrates minimal bibasilar densities. Status post CABG. The cardiomedi astinal contours are unremarkable. Osseous structures are intact. CONCLUSION: 1. Minimal bibasilar densities. 2. Status post CABG. Scar Ambrosio MD on August 05, 2017 at 19:55 Board Certified Radiologist. This report was verified electronically.
[2017-08-05 20:00] LABS: AUTOMATED NEUTROPHIL # 3.9 TH/MM3 (1.8-7.7); BASOPHIL % 0.2 % (0.0-2.0); EOSINOPHIL # 0.1 TH/MM3 (0-0.4); EOSINOPHIL % 1.1 % (0.0-4.0); HEMOGLOBIN 14.7 GM/DL (11.6-15.3); LYMPH % 20.7 % (9.0-44.0); LYMPHOCYTE # 1.2 TH/MM3 (1.0-4.8); MEAN CELL VOLUME 84.1 FL (80.0-100.0); MEAN CORPUSCULAR HEMOGLOBIN 28.1 PG (27.0-34.0); MEAN CORPUSCULAR HGB CONC 33.5 % (32.0-36.0); MEAN PLATELET VOLUME 7.3 FL (7.0-11.0); MONO % 10.2 % (0.0-8.0); MONOCYTE # 0.6 TH/MM3 (0-0.9); NEUT % 67.8 % (16.0-70.0); PLATELET COUNT 201 TH/MM3 (150-450); RED BLOOD COUNT 5.24 MIL/MM3 (4.00-5.30); RED CELL DISTRIBUTION WIDTH 17.1 % (11.6-17.2); WHITE BLOOD COUNT 5.7 TH/MM3 (4.0-11.0)
[2017-08-05 20:14] LABS: BACTERIA, URINE MOD /hpf; BILIRUBIN, URINE NEG (NEG); BLOOD, URINE TRACE (NEG); GLUCOSE,URINE NEG (NEG); KETONE, URINE NEG (NEG); NITRITE,URINE NEG (NEG); SQUAMOUS EPITHELIAL CELL URINE 1 /hpf (0-5); URINE COLOR YELLOW (YELLW/STRAW); URINE LEUKOCYTE ESTERASE SMALL (NEG)
[2017-08-05 20:17] LABS: PROTHROMBIN TIME - PATIENT 10.5 SEC (9.8-11.6)
[2017-08-05 20:22] VITALS: RESP 16
[2017-08-05 20:22] LABS: ALBUMIN 3.7 GM/DL (3.4-5.0); AST (GOT) 23 U/L (15-37); BICARBONATE 23.9 MEQ/L (21.0-32.0); BLOOD UREA NITROGEN 17 MG/DL (7-18); CHLORIDE 99 MEQ/L (98-107); CREATININE 0.99 MG/DL (0.50-1.00); GLOMERULAR FILTRATION RATE 54 ML/MIN (>89); GLUCOSE,RANDOM 110 MG/DL (74-106); SODIUM (NA) 133 MEQ/L (136-145)
[2017-08-05 20:26] LABS: ALKALINE PHOSPHATASE 64 U/L (45-117); ALT (GPT) 26 U/L (10-53); TOTAL BILIRUBIN ADULT 0.5 MG/DL (0.2-1.0); TOTAL PROTEIN 7.4 GM/DL (6.4-8.2)
[2017-08-05 20:42] VITALS: TEMP 99.6
[2017-08-05] MEDS ORDERED: LEVOFLOXACIN 500 MG PREMIX INJ 100 ML IV ONE (20:45)
[2017-08-05] MEDS ORDERED: LEVO750T3 PO ×2 (20:58→20:59)
[2017-08-05] MEDS ORDERED: LEVOFLOXACIN 750 MG TAB PO ONE (21:00)
--- NOTE | 2017-08-05 21:12 | PD ---
Physical Exam Narrative Please see mid-level provider's note for full history and physical. I have evaluated this patient. Patient presents to the emergency department complaining of approximately a week and a half history of productive cough, fatigue, and fever with T-max being 102 on yesterday. She saw her primary care doctor on Thursday and was given cough medicine and told that her lungs were okay , and she was started on Zithromax 500 mg p.o. daily. She is reporting increased secretions with cough, chills, nausea but no vomiting, no chest pain. She was febrile in the emergency department and given Tylenol. Workup was positive for urinary tract infection concern for pneumonia. As patient was slightly hypoxic on room air plan was to admit her for IV antibiotics. She however does not want to be admitted. Risk and benefits of being admitted worsening the patient. She is fully oriented and able to make her own medical decisions. She was given a dose of IV Levaquin and discharged with a 4 day supply to treat UTI as well as URI/bronchitis. Data Data Last Documented VS Vital Signs Date Time Temp Pulse Resp B/P (MAP) Pulse Ox O2 Delivery O2 Flow Rate FiO2 08/05/17 20:22 16 08/05/17 19:49 73 147/65 (92) 97 Nasal Cannula 2.00 08/05/17:18 101.1 Orders Orders Complete Blood Count With Diff (08/05/17 19:01) Comprehensive Metabolic Panel (08/05/17 19:) Act Partial Throm Time (Ptt) (08/05/17 19:) Prothrombin Time / Inr (Pt) (08/05/17 19:01) Urinalysis - C+S If Indicated (08/05/17 19:01) Influenzae A/B Antigen (08/05/17 19:) Blood Culture (08/05/17 19:01) Iv Access Insert/Monitor (08/05/17:) Electrocardiogram (08/05/17 19:) Ecg Monitoring (08/05/17 19:) Oximetry (08/05/17 19:) Chest, Single Ap (08/05/17 19:) Sodium Chloride 0.9% Flush (Ns Flush) (08/05/17 19:15) Acetaminophen (Tylenol) (08/05/17 19:15) Sodium Chlor 0.9% 1000 Ml Inj (Ns 1000 M (08/05/17 19:15) Oxygen Administration (08/05/17 19:03) Urine Culture (08/05/17 19:30) Levofloxacin 500 Mg Premix Inj (Levaquin (08/05/17 20:45) Labs Laboratory Tests Test 08/05/17 19:30 White Blood Count 5.7 TH/MM3 Red Blood Count 5.24 MIL/MM3 Hemoglobin 14.7 GM/DL Hematocrit 44.0 % Mean Corpuscular Volume 84.1 FL Mean Corpuscular Hemoglobin 28.1 PG Mean Corpuscular Hemoglobin Concent 33.5 % Red Cell Distribution Width 17.1 % Platelet Count 201 TH/MM3 Mean Platelet Volume 7.3 FL Neutrophils (%) (Auto) 67.8 % Lymphocytes (%) (Auto) 20.7 % Monocytes (%) (Auto) 10.2 % Eosinophils (%) (Auto) 1.1 % Basophils (%) (Auto) 0.2 % Neutrophils # (Auto) 3.9 TH/MM3 Lymphocytes # (Auto) 1.2 TH/MM3 Monocytes # (Auto) 0.6 TH/MM3 Eosinophils # (Auto) 0.1 TH/MM3 Basophils # (Auto) 0.0 TH/MM3 CBC Comment DIFF FINAL Differential Comment Prothrombin Time 10.5 SEC Prothromb Time International Ratio 1.0 RATIO Activated Partial Thromboplast Time 27.5 SEC Urine Color YELLOW Urine Turbidity CLEAR Urine pH 6.0 Urine Specific [place] 1.011 Urine Protein TRACE mg/dL Urine Glucose (UA) NEG mg/dL Urine Ketones NEG mg/dL Urine Occult Blood TRACE Urine Nitrite NEG Urine Bilirubin NEG Urine Urobilinogen LESS THAN 2.0 MG/DL Urine Leukocyte Esterase SMALL Urine RBC 7 /hpf Urine WBC 17 /hpf Urine Squamous Epithelial Cells 1 /hpf Urine Bacteria MOD /hpf Microscopic Urinalysis Comment CULTURE INDICATED Blood Urea Nitrogen 17 MG/DL Creatinine 0.99 MG/DL Random Glucose 110 MG/DL Total Protein 7.4 GM/DL Albumin 3.7 GM/DL Calcium Level 9.0 MG/DL Alkaline Phosphatase 64 U/L Aspartate Amino Transf (AST/SGOT) 23 U/L Alanine Aminotransferase (ALT/SGPT) 26 U/L Total Bilirubin 0.5 MG/DL Sodium Level 133 MEQ/L Potassium Level 4.0 MEQ/L Chloride Level 99 MEQ/L Carbon Dioxide Level 23.9 MEQ/L Anion Gap 10 MEQ/L Estimat Glomerular Filtration Rate 54 ML/MIN MDM Supervised Visit with FAM: Yes Diagnosis Primary Impression: Urinary tract infection Qualified Codes: N39.0 - Urinary tract infection, site not specified Additional Impression: Bronchitis Referrals: Primary Care Physician Patient Instructions: General Instructions, Urinary Tract Infection in Women ( ED) Departure Forms: Tests/Procedures Additional Instruction: Rest, hydrate. Begin antibiotics tomorrow and take them until every dose is gone. Follow with your primary care provider as discussed. Return to the ED for worsening symptoms or any urgent or emergent medical condition. Scripts Levofloxacin (Levofloxacin) 750 Mg Tablet 750 MG PO DAILY for Infection for 4 Days, #4 TAB 0 Refills Prov: Mirna Servin MD 08/05/17 Disposition: 01 DISCHARGE HOME Condition: Stable Mirna Servin MD August 05, 2017 21:12
--- NOTE | 2017-08-06 15:26 | EKG ---
Date Performed: 08/05/2017 Time Performed: 19:15:50 PTAGE: 82 years EKG: Sinus rhythm NONSPECIFIC ST & T-WAVE ABNORMALITY ABNORMAL ECG PREVIOUS TRACING : 05/27/2017 06.56 Since the prior tracing, the atrial fibrillation has resolv ed. The marked diffuse ST segment depression laterally has resolved, except for the leads reflecting the high lateral wall where there is minimal ST depression. Tracing is consistent with reversal of is chemia. Clinical correlation would be appropriate and important. DOCTOR: Precious Rodriguez Interpretating Date/Time 08/06/2017 15:24:55
== END 2017-08-05 21:34 | disposition home or self-care (01) ==
LOC: NEPC 18:11 → UNDOADMOB 20:41 → NEDA 20:41 → NEPC 21:34
DX: N39.0 Urinary tract infection, site not specified (principal); J40 Bronchitis, not specified as acute or chronic; E11.9 Type 2 diabetes mellitus without complications; E78.00 Pure hypercholesterolemia, unspecified; I10 Essential (primary) hypertension; I48.91 Unspecified atrial fibrillation; K21.9 Gastro-esophageal reflux disease without esophagitis; M79.7 Fibromyalgia; D68.51 Activated protein C resistance; Z79.01 Long term (current) use of anticoagulants; Z79.84 Long term (current) use of oral hypoglycemic drugs
CPT/HCPCS: 71045; 80053; 81001; 85025; 85610; 85730; 87040; 87077; 87086; 87186; 87804; 93005; 96361; 96365; 99285; J1956; J7030